=== PATIENT | female | born 1970 | race Caucasian/White ===

== ENCOUNTER 2020-07-30 15:16 | Emergency (ER) | payer OTHER, BC, SELFPAY ==
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
--- NOTE | ~2020-07-30 | XR_ITS ---
EXAMINATION: LEFT HAND CLINICAL INFORMATION: Pain at the snuffbox region COMPARISON: None TECHNIQUE: 4 views FINDINGS: There is no fracture. No dislocation. Bone and joints are normal. XR/XR hand wrist LT IMPRESSION: Normal left hand.
[2020-07-30 16:07] VITALS: BP 135/66; PULSE 62; RESP 16; TEMP 36.6; O2SAT 100; BMI 27.4
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
[2020-07-30] MEDS: Acetaminophen 325 MG TABLET 975 MG PO (17:05)
== END 2020-07-30 19:00 | disposition home or self-care (01) ==
PROVIDERS: Emergency Provider Emergency Medicine Emergency Medical Services; PCP Internal Medicine
DX: S39.012A Strain of muscle, fascia and tendon of lower back, initial encounter (principal); S16.1XXA Strain of muscle, fascia and tendon at neck level, initial encounter; M54.2 Cervicalgia; M25.532 Pain in left wrist; R10.11 Right upper quadrant pain; M54.6 Pain in thoracic spine; V43.52XA Car driver injured in collision with other type car in traffic accident, initial encounter; Y93.9 Activity, unspecified; Y92.410 Unspecified street and highway as the place of occurrence of the external cause; Y99.9 Unspecified external cause status; S63.502A Unspecified sprain of left wrist, initial encounter; R10.9 Unspecified abdominal pain; Z79.899 Other long term (current) drug therapy
CPT/HCPCS: 70450; 71250; 72125; 73110; 73130; 74176; 93005; 99284

== ENCOUNTER 2023-12-10 17:37 | Inpatient (IN) | payer BC, MEDICAID, SELFPAY ==
--- NOTE | ~2023-12-10 | MR_ITS ---
EXAMINATION: MR BRAIN WITHOUT CONTRAST CLINICAL INFORMATION: Ataxia COMPARISON: CT head December 10, 2023 TECHNIQUE: MRI of the brain was obtained using routine sequences without contrast. FINDINGS: No acute infarct. No acute intracranial hemorrhage or extra-axial fluid collection. The ventricles and sulci are normal in size and configuration without significant volume loss or hydrocephalus. Small chronic lacunar infarct in the right putamen. No mass lesion, mass effect, or herniation pattern. Normal intracranial arterial and dural venous sinus flow voids. Normal appearance of the midline structures. The orbits are grossly unremarkable. The paranasal sinuses and mastoids are well aerated. Normal marrow signal. MR/MR head/brain wo con IMPRESSION: No acute intracranial abnormality. Small chronic lacunar infarct in the right putamen. Electronically signed by: Cindi Hope MD 12/11/2023 07:20 PM EDT
--- NOTE | ~2023-12-10 | CT_ITS ---
EXAMINATION: CT HEAD WITHOUT CONTRAST CT CERVICAL SPINE WITHOUT CONTRAST CLINICAL INFORMATION: Fall. Head strike. COMPARISON: CT head and cervical spine from 07/30/2020. TECHNIQUE: Contiguous axial imaging was performed from the skull base to vertex without intravenous administration of contrast. Contiguous axial imaging was performed from the upper chest through the skull base without intravenous administration of contrast. Coronal and sagittal reformats were obtained at the acquisition workstation. This CT examination was performed using dose optimization techniques as appropriate, variously including the following: *Automated exposure control. *Adjustment of mA and/or kV according to patient size (this includes techniques or standardized protocols for targeted exams where dose is matched to indication/reason for exam; i.e. extremities or head). *Use of iterative reconstruction technique. DLP: 1130 mGy-cm FINDINGS: Head: There is no evidence of acute intracranial hemorrhage or edematous territorial infarction. Luna-white matter differentiation is preserved. There is no abnormal attenuation within the brain parenchyma. The ventricles are normal in morphology and size. No evidence for obstructive hydrocephalus. No abnormal mass effect or midline shift. No extra-axial fluid collections. Calcific atherosclerotic disease of the intracranial internal carotid arteries. No hyperdense vessel sign. No acute soft tissue or osseous abnormalities. Mild mucosal thickening of the paranasal sinuses. The mastoid air cells and middle ear cavities are clear. Cervical Spine: Instrumented anterior fusion of C5-C6. The atlantooccipital and atlantoaxial articulations remain well aligned. Straightening of the normal cervical lordosis. Otherwise, there is anatomic alignment of the vertebral bodies and posterior elements. No evidence of acute fracture or subluxation. The vertebral body heights are maintained. Moderate degenerative disc disease at C6-C7. Mild degenerative disc disease at C4-C5. Facet and uncovertebral joint arthropathy leads to osseous encroachment on the neural foramina from C3-C5. There is no prevertebral soft tissue swelling. The thyroid gland and remaining cervical soft tissues are within normal limits. The lung apices demonstrate no abnormalities. CT/CT cervical spine wo IV con IMPRESSION: 1. No evidence of acute intracranial hemorrhage or edematous territorial infarction. 2. No evidence of acute fracture or traumatic subluxation of the cervical spine. 3. Instrumented anterior fusion of C5-C6. 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 Electronically signed by: Colin Sung DO 12/10/2023 07:41 PM EDT RP
[2023-12-10 17:58] VITALS: BP 146/79; BP 162/90; PULSE 85; PULSE 88; RESP 18; TEMP 37.1; O2SAT 96; O2SAT 97; BMI 35.4
[2023-12-10 18:07] VITALS: BP 146/79; PULSE 88; RESP 18; TEMP 37.1; O2SAT 96
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
--- NOTE | 2023-12-10 18:36 | ED_ITS ---
HPI - Fall General Chief Complaint: Fall Stated Complaint: FELL DOWNSTAIRS,+HEAD STRIKE,UNABLE TO WALK Time Seen by Provider: 12/10/23 17:53 Source: patient and EMS Mode of arrival: EMS Limitations: no limitations History of Present Illness ED Provider: Bear Vega PA-C HPI Narrative: 53-year-old female with history of depression on fluoxetine and Wellbutrin at home who presents to the ER for evaluation of a fall at home today. Patient reports she fell down stairs that were carpeted, between 8-11 stairs. She states she hit her head on the wall, bent backwards and rolled down the stairs. She denies losing consciousness. She reports pain in her neck and her right lower back. She states she was able to get up after the fall and was able to drive herself to the hospital but unable to get out of the car so she called EMS from the parking lot. She reports that she has had ongoing difficulty with ambulation recurrent falls at home for the last couple of months. She reports she found out today with her psychiatrist that she has accidentally been taking 160 mg of fluoxetine instead of the intended 80 mg of fluoxetine. She states this has been going on for 6 weeks since her recent dose adjustment, and she was confused of how to take it. She reports in the last 6 weeks she has had increased falls, tremors, weakness in both of her legs. She states her legs ?give out without warning and she has had several falls, almost daily. She is on anticoagulation. She denies any numbness or tingling in her legs. She also reports bilateral hand tremor and has bilateral upper extremity weakness, 1 side not worse than the other. MD complaint: fall Onset (ago): hour(s) Fall from: standing Fall witnessed: no Place fall occurred: home Loss of consciousness: none Prolonged down time: no Symptoms prior to fall: none Context: history of frequent falls Location of injury: head, neck and back Severity: moderate Severity scale (1-10): 5 Quality: aching Associated symptoms (after fall): headache, neck pain, weakness and unable to walk Related Data Previous Rx's ?Medication ?Instructions ?Recorded acetaminophen 500 mg tablet 1,000 mg (2 x 500 mg) PO QID PRN 07/30/20 (Tylenol Extra Strength) fever or pain #14 tabs cyclobenzaprine 10 mg tablet 10 mg PO Q8H Muscle spasm #10 tabs 07/30/20 naproxen 500 mg tablet 500 mg PO BID PRN pain #10 tabs 07/30/20 oxycodone 5 mg tablet 5 mg PO BID PRN pain #10 tabs 07/30/20 Allergies Allergy/AdvReac Type Severity Reaction Status Date / Time Gadolinium-Containing Allergy Unknown ITCHING Verified 12/10/23 18:01 Contrast Medi [Gadolinium-Containing Contrast] Review of Systems 2 Review of Systems: Yes all other systems are reviewed and are negative [facility] Past Medical History Surgical History H/O elbow surgery H/O: hysterectomy History of appendectomy Hx of foot surgery S/P cervical spinal fusion S/P gastric surgery Social History Social History Smoked in Last 30 Days: No Use of substances other than those prescribed or required for medical reasons: No Advance Directives: No Advance Directives Information Provided: No Do you have a plan to hurt others: No Plan Physical Exam 2 Vital Signs: Vital Signs: Last Vital Signs Temp 97.8 F 12/10/23 20:53 Pulse 79 12/10/23 20:53 Resp 16 12/10/23 20:53 BP 126/76 12/10/23 20:53 Pulse Ox 98 12/10/23 20:53 O2 Del Method Room Air 12/10/23 20:53 BMI result Body Mass Index 35.4 Appearance: Alert, appears scared. Oriented X3. No acute distress. Head: normocephalic, atraumatic. Eyes: Pupils equal, round and reactive to light. ENT: Pharynx normal. No tonsillar swelling or exudate. Neck: Normal inspection. Neck supple. Left-sided soft tissue tenderness and palpable spasm CVS: Normal heart rate and rhythm. Pulses normal. Respiratory: No respiratory distress. Breath sounds normal. Abdomen: Soft and nontender. +BS x4 Skin: Skin warm and dry. Normal skin color. Normal skin turgor. No rashes. Extremities: No lower extremity edema. No joint swelling. Neuro/psych: Oriented X 3. Intention tremor of the bilateral lower extremities, resting tremor of the bilateral hands. Right lower extremity weakness compared to the left. bilateral UE weakness L>R, tremors throughout. +clonus of the LE. very unsteady giat Medical Decision Making Medical Decision Making [facility] Narrative: 53-year-old female with history of depression on fluoxetine and Wellbutrin at home presents to the ER for evaluation after she fell down a set of stairs today. She hit her head but did not lose consciousness. She reports neck pain and back pain. Placed in a collar on arrival. Unable to walk. She reports recurrent and worsening falls over the last several weeks. She has accidentally been taking 160 mg of her fluoxetine rather than 80 mg. She found this out today. She states this has been going on for 6 weeks. No fevers at home. No episodes of lethargy or confusion. She does report her legs ?giving out without warning. On examination she does not have any dilated pupils. She does have left upper extremity weakness, right lower extremity weakness, clonus, tremors throughout. Unable to walk. Very unsteady gait. No numbness or tingling, loss of sensation. She has tissue tenderness of the right lower lumbar area. No midline tenderness of her spine. CT scan of her head and neck were performed that were unremarkable. Lab workup was unremarkable. Vital signs are stable. Spoke with her who endorses significant decline in the last several weeks with recurrent falls, he reports 3 falls today. Patient not safe for discharge home. Case discussed with the hospitalist who has accepted the patient for admission. Patient updated on plan of care and all questions were answered. Differential Diagnosis Differential Diagnoses: The differential diagnosis associated with the presentation includes Serotonin syndrome, SSRI toxicity, stroke, multiple sclerosis, Guillain-Pe Ell syndrome, parkinson's disease Admission/Observation Consideration of admission/observation: Escalation of care including admission/observation considered Consult Healthcare Provider Management of the patient was discussed with: Hospitalist Dr. Quintanilla accepted admission Lab Data [facility] Lab Attestation statement: I reviewed the patient's lab results. 12/10/23 18:48 12/10/23 18:48 Labs: Lab Results 12/10/23 Range/Units 18:48 WBC 10.0 (4.8-10.8) X10*3/uL RBC 4.32 (4.20-5.50) X10*6/uL Hgb 12.8 (12.0-16.0) g/dl Hct 38.0 (37.0-47.0) % MCV 88.0 (80.0-98.0) fL MCH 29.6 (27.0-33.0) pg MCHC 33.7 (31.0-35.0) g/dl RDW 13.0 (11.0-16.0) % Plt Count 242 (160-400) X10*3/uL MPV 10.1 (9.4-12.3) fL Immature Gran % (Auto) 0.3 (0.0-0.4) % Neut % (Auto) 77.8 H (45-73) % Lymph % (Auto) 13.7 L (20-40) % [place] % (Auto) 6.5 (2-11) % Eos % (Auto) 1.6 (0-4) % Baso % (Auto) 0.1 (0-2) % Lymph # (Auto) 1.4 (1.2-4.9) X10*3/uL [place] # (Auto) 0.7 (0.1-1.2) X10*3/uL Eos # (Auto) 0.2 (0.0-0.4) X10*3/uL Baso # (Auto) 0.0 (0.0-0.2) X10*3/uL Abs Immat Gran (auto) 0.03 (0.00-0.03) X10*3/uL Absolute Neuts (auto) 7.7 (2.0-8.3) x10*3/uL Absolute Nucleated RBC 0.000 (0.0-0.012) X10*3/uL Nucleated RBC % (auto) 0.0 (0.0-0.2) /100WBC PT 10.1 L (10.9-12.4) SEC INR 0.9 (0.9-1.1) APTT 24.8 L (26.0-36.8) SEC Sodium 140 (135-145) mmol/L Potassium 4.2 (3.3-5.1) mmol/L Chloride 112 H (96-108) mmol/L Carbon Dioxide 21 L (22-29) mmol/L Anion Gap 11 L (12-20) BUN 16 (9-16) mg/dL Creatinine 0.91 (0.5-1.4) mg/dL Estim Creat Clear Calc 72.3 Estimated GFR > 60 Random Glucose 105 (60-115) mg/dL Calcium 9.1 (8.4-10.2) mg/dL Magnesium 2.1 (1.6-2.6) mg/dL Total Bilirubin 0.2 (0.0-1.0) mg/dL Direct Bilirubin < 0.1 (0.0-0.5) mg/dL AST 15 (5-31) U/L ALT 17 (0-31) U/L Alkaline Phosphatase 80 (39-117) U/L Total Creatine Kinase 54 (26-140) U/L Troponin I High Sens < 2.7 (<3.5-17.0) ng/L Total Protein 6.6 (6.5-8.0) g/dL Albumin 3.9 (3.5-5.0) g/dL TSH 1.94 (0.32-4.0) uIU/mL Salicylates < 5.0 L (15-30) mg/dL Acetaminophen < 3 (<30) mcg/mL Ethyl Alcohol < 10 mg/dL Independent Interpretation I performed an independent interpretation of an: EKG and CT Scan Interpretation: EKG with normal sinus rhythm, ventricular rate 78 beats per minute, normal [place] interval, normal QTC, no ST segment elevation or depression. No change from 08/02/2020 CT with out edema or acute bleed Radiology Impression Discussion of test interpretation with radiology: I have reviewed the radiologist's reading. Radiologist Impression: CT/CT head/brain wo IV con IMPRESSION: 1. No evidence of acute intracranial hemorrhage or edematous territorial infarction. 2. No evidence of acute fracture or traumatic subluxation of the cervical spine. 3. Instrumented anterior fusion of C5-C6. 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 Independent Historian Clinical information obtained from an independent historian. History obtained from or confirmed by: Spouse and EMS External Record Review External record reviewed: Outpatient record and Prior outpatient labs Prescription Management I considered prescription management with: Other (benzo) Chronic Conditions Patient?s care impacted by: Other (depression) Social Determinants Patient?s care significantly limited by Social Determinants of Health including: Other Social Determinant of Health Critical Care Time Critical Care Time Critical Care Time: No Discharge Plan Discharge Clinical Impression: Recurrent falls while walking, Clonus, Bilateral leg weakness, SSRI overdose Patient Disposition: Admitted As Inpatient Print Language: Yakut
[2023-12-10 18:55] LABS: Basophils Percent Auto 0.1 % (0-2); Eosinophils Absolute Auto 0.2 X10*3/uL (0.0-0.4); Eosinophils Percent Auto 1.6 % (0-4); Hemoglobin 12.8 g/dl (12.0-16.0); Imm Gran Abs Auto 0.03 X10*3/uL (0.00-0.03); Imm Gran Pct Auto 0.3 % (0.0-0.4); Lymphocytes Absolute Auto 1.4 X10*3/uL (1.2-4.9); Lymphocytes Percent Auto 13.7 % (20-40); MANUAL DIFF FLAG NO; Mean Corpuscular HGB Conc 33.7 g/dl (31.0-35.0); Mean Corpuscular Hemoglobin 29.6 pg (27.0-33.0); Mean Platelet Volume 10.1 fL (9.4-12.3); Monocytes Absolute Auto 0.7 X10*3/uL (0.1-1.2); Monocytes Percent Auto 6.5 % (2-11); Neutrophils Absolute Auto 7.7 x10*3/uL (2.0-8.3); Neutrophils Percent Auto 77.8 % (45-73); Platelet Count 242 X10*3/uL (160-400); Red Blood Count 4.32 X10*6/uL (4.20-5.50)
--- NOTE | 2023-12-10 19:00 | PC.NURSE ---
Report given to Rebecca Burks RN
[2023-12-10 19:01] LABS: INTERNATIONAL NORM RATIO 0.9 (0.9-1.1); Prothrombin Time 10.1 SEC (10.9-12.4)
[2023-12-10 19:03] LABS: Partial Thromboplastin Time 24.8 SEC (26.0-36.8)
[2023-12-10 19:11] LABS: Acetaminophen LAB < 3 mcg/mL (<30); Salicylate < 5.0 mg/dL (15-30)
[2023-12-10 19:16] LABS: Alanine Aminotransferase 17 U/L (0-31); Albumin Level 3.9 g/dL (3.5-5.0); Alkaline Phosphatase 80 U/L (39-117); Anion Gap 11 (12-20); Aspartate Amino Transferase 15 U/L (5-31); Bilirubin Direct < 0.1 mg/dL (0.0-0.5); Bilirubin Total 0.2 mg/dL (0.0-1.0); Blood Urea Nitrogen 16 mg/dL (9-16); Calcium 9.1 mg/dL (8.4-10.2); Carbon Dioxide 21 mmol/L (22-29); Chloride 112 mmol/L (96-108); Creatinine Clr Calc Pharmacy 72.3; Estimated Glomerular Filt Rate > 60; Ethanol < 10 mg/dL; Glucose Random 105 mg/dL (60-115); Magnesium 2.1 mg/dL (1.6-2.6); Potassium 4.2 mmol/L (3.3-5.1); Sodium 140 mmol/L (135-145); Total Protein 6.6 g/dL (6.5-8.0)
[2023-12-10 19:19] LABS: Troponin-I High Sensitivity < 2.7 ng/L (<3.5-17.0)
[2023-12-10 19:33] LABS: TSH reflex Free T4 1.94 uIU/mL (0.32-4.0)
[2023-12-10 20:53] VITALS: BP 126/76; PULSE 79; RESP 16; TEMP 36.6; O2SAT 98
--- NOTE | 2023-12-10 21:02 | PM.IMHP ---
History of Present Illness Date of Service: 12/10/23 Attending physician on admission: Anna Quintanilla Chief Complaint: Fall at home with head strike, unable to walk Pt is a 53-year-old female with a PMH significant for?fibromyalgia, cluster migraines, OCD, and anxiety who presents to the ED with?multiple complaints including accidental medication overdose as well as multiple falls at home. Patient reports found out today after review with her psychiatrist that she had been taking double her prescribed fluoxetine due to a pharmacy error: Has been taking 160 mg daily for the past 1.5 months instead of 80 mg daily. Reports daily nausea and vomiting during this time period. Patient also reports she had 2 falls at home. The 1st incident occurred when she was returning home in the morning and she walked through her door, ?blacked out? 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 Patient was asymptomatic --no lightheadedness or dizziness -- and has no recollection if she tripped or for how long she was unconscious. Later in the afternoon patient was at the top of the stairs when her ?legs gave out? and she fell down the stairs hitting her head and back on the wall, before bending backwards and continuing to roll down the stairs. Denies losing consciousness during this episode. No lightheadedness or dizziness. Patient reports she has been experiencing difficulty walking, intermittent lower leg weakness, and ataxia that has been ongoing for the past year, significantly worsening the past few months. During this past year patient has multiple other medical complaints, including intermittent upper, lower, and whole-body resting tremors; loss of fine motor function or upper extremities; loss of sensation of legs especially at night where they feel like they are ?flying? or ?floating?; worsening migraines; blurry vision of past two months where she can no longer read close up; and difficulty word finding. Has not been to see any provider for these symptoms, though notes she has an appointment to see her PCP next month. No fever, chills, nausea, vomiting, abdominal pain. Denies shortness or breath or difficulty breathing. No chest pain/pressure, palpitations. In the ED pt was mildly hypertensive at 146/79, vitals otherwise WNL and stable. Labs were grossly unremarkable. No leukocytosis. Stable H&H. No significant electrolyte abnormalities. Renal and hepatic function WNL. Troponin negative. TSH WNL. CT?of head found no acute intracranial hemorrhage or edematous territorial infarction. CT of cervical spine negative for evidence of acute fracture or traumatic subluxation, though did show instrumented anterior fusion of C5-C6, and mild multilevel degenerative spondylo arthropathy. EKG demonstrated normal sinus rhythm without evidence of significant ST elevations or depressions. Pt will be admitted to the hospital under observation for treatment and further evaluation of generalized weakness, ataxia, and frequent falls at home. Review of Systems Review of Systems: Negative except for that stated in the [facility] Medical History (Updated 12/10/23 @ 22:30 by PAULETTE Webster) Cluster headaches Generalized anxiety disorder OCD (obsessive compulsive disorder) Fibromyalgia Surgical History Hx of foot surgery H/O elbow surgery S/P gastric surgery H/O: hysterectomy History of appendectomy S/P cervical spinal fusion Social History Smoked in Last 30 Days: No Use of substances other than those prescribed or required for medical reasons: No Advance Directives: No Advance Directives Information Provided: No Do you have a plan to hurt others: No Plan Meds Allergies Allergy/AdvReac Type Severity Reaction Status Date / Time Gadolinium-Containing Allergy Unknown ITCHING Verified 12/10/23 18:01 Contrast Medi [Gadolinium-Containing Contrast] Home Medications ?Medication ?Instructions ?Recorded ?Confirmed ?Last Taken ?Type acetaminophen 500 mg tablet 1,000 mg PO BID PRN fever or pain 12/10/23 12/10/23 12/09/23 History (Tylenol Extra Strength) amitriptyline 10 mg tablet 10 mg PO BEDTIME 12/10/23 12/10/23 12/09/23 History bupropion HCl 150 mg 24 hr tablet, 150 mg PO DAILY 12/10/23 12/10/23 12/10/23 History extended release cetirizine 10 mg tablet 10 mg PO BEDTIME 12/10/23 12/10/23 12/09/23 History cholecalciferol (vitamin D3) 50 50 mcg PO DAILY 12/10/23 12/10/23 12/10/23 History mcg (2,000 unit) capsule cyanocobalamin (vitamin B-12) 1,000 mcg PO DAILY 12/10/23 12/10/23 12/10/23 History 1,000 mcg tablet docusate sodium 100 mg capsule 100 mg PO BID 12/10/23 12/10/23 12/10/23 History duloxetine 60 mg capsule,delayed 60 mg PO BEDTIME 12/10/23 12/10/23 12/09/23 History release fluoxetine 40 mg capsule 80 mg PO DAILY 12/10/23 12/10/23 12/10/23 History hydroxyzine HCl 25 mg tablet 25 mg PO Q8H PRN anxiety 12/10/23 12/10/23 12/09/23 History ibuprofen 800 mg tablet 800 mg PO TID PRN Pain 12/10/23 12/10/23 12/09/23 History pregabalin 300 mg capsule 300 mg PO BID 12/10/23 12/10/23 12/10/23 History sennosides 8.6 mg-docusate sodium 1 tab PO BID 12/10/23 12/10/23 12/10/23 History 50 mg tablet (Stimulant Laxative Plus) zolpidem 10 mg tablet 10 mg PO BEDTIME 12/10/23 12/10/23 12/09/23 History Physical Exam Vital Signs and Narrative: Vital Signs: Last Vital Signs Temp 97.8 F 12/10/23 20:53 Pulse 79 12/10/23 20:53 Resp 16 12/10/23 20:53 BP 126/76 12/10/23 20:53 Pulse Ox 98 12/10/23 20:53 O2 Del Method Room Air 12/10/23 20:53 BMI result Body Mass Index 35.4 Constitutional: Alert, in no acute distress. Mental Status: Oriented to person, place and time. Eyes: Pupils are equal, round, and reactive to light. Ear, Nose, and Throat: Oropharynx clear, mucous membranes moist. Ears and nose without deformities. Trachea midline. Respiratory: Clear to auscultation bilaterally. No wheezing, rales, or rhonchi. Cardiovascular: S1, S2 regular. No murmurs, rubs, or gallops. Gastrointestinal: Abdomen soft, non-tender, non-distended. Normal bowel sounds. Neurologic: Upper extremity resting tremors noted. Tremulous voice. Tongue fasciculations. EOM with difficulty tracking. Right lower extremity clonus. Loss of sensation to light touch of left face and left upper and lower extremities. Globalized, symmetric reduced strength of upper and lower extremities bilaterally. Skin: Warm, dry. Extremities: No edema. Psychiatric: Normal mood and affect. Results Labs 12/10/23 18:48 12/10/23 18:48 Labs: Laboratory Results - last 24 hr 12/10/23 18:48 MCV 88.0 MCH 29.6 MCHC 33.7 RDW 13.0 Plt Count 242 MPV 10.1 Immature Gran % (Auto) 0.3 Neut % (Auto) 77.8 H Lymph % (Auto) 13.7 L [place] % (Auto) 6.5 Eos % (Auto) 1.6 Baso % (Auto) 0.1 Lymph # (Auto) 1.4 [place] # (Auto) 0.7 Eos # (Auto) 0.2 Baso # (Auto) 0.0 Abs Immat Gran (auto) 0.03 Absolute Neuts (auto) 7.7 Absolute Nucleated RBC 0.000 Nucleated RBC % (auto) 0.0 PT 10.1 L INR 0.9 APTT 24.8 L Anion Gap 11 L Estim Creat Clear Calc 72.3 Estimated GFR > 60 Random Glucose 105 Calcium 9.1 Magnesium 2.1 Total Bilirubin 0.2 Direct Bilirubin < 0.1 AST 15 ALT 17 Alkaline Phosphatase 80 Total Creatine Kinase 54 Troponin I High Sens < 2.7 Total Protein 6.6 Albumin 3.9 TSH 1.94 Salicylates < 5.0 L Acetaminophen < 3 Ethyl Alcohol < 10 Imaging Radiologist's Impressions: Impressions Cervical Spine CT 12/10/23 18:30 IMPRESSION: 1. No evidence of acute intracranial hemorrhage or edematous territorial infarction. 2. No evidence of acute fracture or traumatic subluxation of the cervical spine. 3. Instrumented anterior fusion of C5-C6. 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 Electronically signed by: Colin Sung DO 12/10/2023 07:[address] 12/10/23 18:30 IMPRESSION: 1. No evidence of acute intracranial hemorrhage or edematous territorial infarction. 2. No evidence of acute fracture or traumatic subluxation of the cervical spine. 3. Instrumented anterior fusion of C5-C6. 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 Electronically signed by: Colin Sung DO 12/10/2023 07:41 PM EDT RP Assessment and Plan (1) SSRI overdose: Qualifiers: Encounter type: initial encounter Injury intent: accidental or unintentional Qualified Code(s): T43.221A - Poisoning by selective serotonin reuptake inhibitors, accidental (unintentional), initial encounter Status: Acute (2) Recurrent falls while walking: Status: Acute Plan Pt is a 53-year-old female with a PMH significant for?fibromyalgia, cluster migraines, OCD, and anxiety who presents to the ED with?multiple complaints including accidental medication overdose as well as multiple falls at home. Pt will be admitted to the hospital under observation for treatment and further evaluation of generalized weakness, ataxia, and frequent falls at home. Frequent falls at home Patient with ataxia, tremors, frequent falls at home, and myriad other symptoms Has been ongoing x1 year, worsening lately Reports currently falling almost daily CT of head and cervical spine negative for acute abnormality, fracture, or subluxation; labs unremarkable Unclear etiology: Most concerning for Parkinson's versus multiple sclerosis Neurology consult PT/OT evaluation Will hold off on additional imaging pending Neurology input SSRI overdose Unintentional, pt has been taking 160mg daily instead of 80mg daily Does not appear to have acute serotonin syndrome Hold amitriptyline, bupropion, duloxetine, fluoxetine, and pregabalin for now Chronic constipation Continue home bowel regimen Fibromyalgia Hold amitriptyline, pregabalin Anxiety Continue hydroxyzine Hold other antidepressants Full Code Attending:?Dr. Quintanilla DVT Prophylaxis: Lovenox Patient will be admitted to the hospital under observation for treatment and further evaluation of worsening ataxia, generalized weakness, essential tremors, and frequent falls at home requiring specialist consultation with Neurology and for PT evaluation for safe disposition home. Quality Stroke Does the patient have a stroke diagnosis?: No VTE Prior VTE?: No VTE Risk Level:: Medical - moderate - high VTE Device Contraindication: Treatment Not Indicated VTE Drug Contraindication: N/A - Med Ordered
[2023-12-10 21:03] LABS: Appearance Urine Clear; Color Urine Yellow; Glucose Urine UA Negative (Negative); Leukocyte Esterase Urine Negative (Negative); Nitrite Urine Negative (Negative); Specific Gravity - Urine 1.015 (1.005-1.025); Urine Blood Negative (Negative); Urine Ketones Negative (Negative); Urine Protein Negative (Neg-Trace)
--- NOTE | 2023-12-10 21:09 | MHC.CM.ED ---
Pt will be admitted. Awaiting hospitalist.
[2023-12-10 21:15] LABS: Amphetamine Screen Urine Not Detected (Not Detect); Barbiturates, Urine Not Detected (Not Detect); Benzodiazepines Screen Urine Not Detected (Not Detect); Buprenorphine Scr Not Detected (Not Detect); Cannabinoid Screen Urine Not Detected (Not Detect); Cocaine Screen Urine Not Detected (Not Detect); Fentanyl, urine Not Detected (Not Detect); Methadone Screen, Urine Not Detected (Not Detect); Opiate Screen Urine Not Detected (Not Detect); Oxycodone Screen Urine Not Detected (Not Detect); Phencyclidine Screen Urine Not Detected (Not Detect)
--- NOTE | 2023-12-10 21:59 | MHC.EDTECH ---
At about 1999 I walked the patient to the bathroom and upon leaving the bathroom she told me her legs were feeling weak and felt like they were going to give out on her. Upon hearing this I proceeded to lower her to the ground on her bottom preventing any injuries. Placed patient in wheelchair and brought her back to room and helped her get into the bed.
--- NOTE | 2023-12-10 22:22 | PHA.MEDREC ---
Pharmacy Consult ? Medication Reconciliation Pharmacy has completed the medication reconciliation. Spoke to patient and confirmed medication list. Patient said she takes cetirizine and duloxetine at night.
[2023-12-10 23:05] VITALS: BP 151/70; PULSE 67; RESP 18; TEMP 36.8; O2SAT 95
[2023-12-11] VITALS (7 sets, daily range): BP systolic 134–169; BP diastolic 64–81; PULSE 64–80; RESP 16–20; TEMP 36.1–37.1; O2SAT 95–100
[2023-12-11] MEDS: Zolpidem Tartrate 5 MG TABLET 10 MG PO ×2 (00:23→23:42)
[2023-12-11] MEDS: Docusate Sodium 100 MG CAPSULE PO ×3 (00:23→21:59)
[2023-12-11] MEDS: Sennosides/Docusate Sodium TABLET 1 TAB PO ×3 (00:23→21:59)
[2023-12-11] MEDS: Loratadine 10 MG TABLET PO ×2 (00:23→21:59)
[2023-12-11] MEDS: Enoxaparin Sodium 40 MG/0.4 ML SYRINGE SUBCUT ×2 (00:28→22:00)
[2023-12-11] MEDS: hydrOXYzine HCL 25 MG TABLET PO (00:28)
[2023-12-11] MEDS: Melatonin 3 MG TABLET 6 MG PO (00:29)
[2023-12-11] MEDS: Cyanocobalamin (Vitamin B-12) 1,000 MCG TABLET 1000 MCG PO (09:11)
[2023-12-11] MEDS: Cholecalciferol (Vitamin D3) 25 MCG TABLET 50 MCG PO (09:11)
--- NOTE | 2023-12-11 10:55 | P.PNIM_ITS ---
Subjective Subjective Date of Service: 12/11/23 Interval History: anxious, tremulous Physical Exam 2 Vital Signs: Vital Signs: Last Vital Signs Temp 98 F 12/11/23 10:19 Pulse 66 12/11/23 10:19 Resp 18 12/11/23 10:19 BP 162/81 H 12/11/23 10:19 Pulse Ox 95 12/11/23 10:19 O2 Del Method Room Air 12/11/23 10:19 BMI result Body Mass Index 35.4 alert, tremulous, slow speech, high tonicity, no specific focal weakness Objective Data Active Medications Acetaminophen (Acetaminophen 325 Mg Tablet) 650 mg PO Q6H PRN PRN Reason: Pain, Mild (Pain Scale 1-3), fever or headache Benzonatate (Benzonatate 100 Mg Capsule) 100 mg PO TID PRN PRN Reason: Cough Calcium Carbonate (Calcium Carbonate 750 Mg Tab.Chew) 750 mg PO Q4H PRN PRN Reason: Heartburn Cyanocobalamin (Cyanocobalamin (Vitamin B-12) 1,000 Mcg Tablet) 1,000 mcg PO DAILY [facility] Last Admin: 12/11/23 09:11 Dose: 1,000 mcg Documented By: JEFF Docusate Sodium (Docusate Sodium 100 Mg Capsule) 100 mg PO BID [facility] Last Admin: 12/11/23 09:11 Dose: 100 mg Documented By: JEFF Enoxaparin Sodium (Enoxaparin Sodium 40 Mg/0.4 Ml Syringe) 40 mg SUBCUT Q24H [facility] Last Admin: 12/11/23 00:28 Dose: 40 mg Documented By: CEASAR Hydroxyzine HCl (Hydroxyzine Hcl 25 Mg Tablet) 25 mg PO Q8H PRN PRN Reason: anxiety Last Admin: 12/11/23 00:28 Dose: 25 mg Documented By: CEASAR Ibuprofen (Ibuprofen 800 Mg Tablet) 800 mg PO TID PRN PRN Reason: Pain, Mild (Pain Scale 1-3) Loratadine (Loratadine 10 Mg Tablet) 10 mg PO BEDTIME [facility] Last Admin: 12/11/23 00:23 Dose: 10 mg Documented By: CEASAR Magnesium Hydroxide (Milk Of Magnesia 30 Ml Oral.Susp) 30 ml PO DAILY PRN PRN Reason: Constipation Melatonin (Melatonin 3 Mg Tablet) 6 mg PO BEDTIME PRN PRN Reason: Insomnia Last Admin: 12/11/23 00:29 Dose: 6 mg Documented By: CEASAR Ondansetron HCl (Ondansetron Hcl 4 Mg/2 Ml Vial) 4 mg IVPUSH Q8H PRN PRN Reason: Nausea and Vomiting Senna/Docusate Sodium (Sennosides/Docusate Sodium Tablet) 1 tab PO BID [facility] Last Admin: 12/11/23 09:11 Dose: 1 tab Documented By: JEFF Sodium Chloride (0.9 % Sodium Chloride Flush 3 Ml Syringe) 3 ml IVFLUSH QSHIFT [facility] Last Admin: 12/11/23 09:12 Dose: Not Given Documented By: JEFF Non-Admin Reason: See Note Vitamin D (Cholecalciferol (Vitamin D3) 25 Mcg Tablet) 50 mcg PO DAILY [facility] Last Admin: 12/11/23 09:11 Dose: 50 mcg Documented By: JEFF Zolpidem Tartrate (Zolpidem Tartrate 5 Mg Tablet) 10 mg PO BEDTIME [facility] Last Admin: 12/11/23 00:23 Dose: 10 mg Documented By: CEASAR Labs 12/10/23 18:48 12/10/23 18:48 Labs: Laboratory Results - last 24 hr 12/10/23 12/10/23 18:48 20:56 MCV 88.0 MCH 29.6 MCHC 33.7 RDW 13.0 Plt Count 242 MPV 10.1 Immature Gran % (Auto) 0.3 Neut % (Auto) 77.8 H Lymph % (Auto) 13.7 L [place] % (Auto) 6.5 Eos % (Auto) 1.6 Baso % (Auto) 0.1 Lymph # (Auto) 1.4 [place] # (Auto) 0.7 Eos # (Auto) 0.2 Baso # (Auto) 0.0 Abs Immat Gran (auto) 0.03 Absolute Neuts (auto) 7.7 Absolute Nucleated RBC 0.000 Nucleated RBC % (auto) 0.0 PT 10.1 L INR 0.9 APTT 24.8 L Anion Gap 11 L Estim Creat Clear Calc 72.3 Estimated GFR > 60 Random Glucose 105 Calcium 9.1 Magnesium 2.1 Total Bilirubin 0.2 Direct Bilirubin < 0.1 AST 15 ALT 17 Alkaline Phosphatase 80 Total Creatine Kinase 54 Troponin I High Sens < 2.7 Total Protein 6.6 Albumin 3.9 TSH 1.94 Urine Color Yellow Urine Appearance Clear Urine pH 6.0 Ur Specific [place] 1.015 Urine Protein Negative Urine Glucose (UA) Negative Urine Ketones Negative Urine Blood Negative Urine Nitrite Negative Ur Leukocyte Esterase Negative Salicylates < 5.0 L Urine Opiates Screen Not Detected Ur Buprenorphine Scrn Not Detected Ur Oxycodone Screen Not Detected Urine Methadone Screen Not Detected Urine Fentanyl Screen Not Detected Acetaminophen < 3 Ur Barbiturates Screen Not Detected Ur Phencyclidine Scrn Not Detected Ur Amphetamines Screen Not Detected U Benzodiazepines Scrn Not Detected Urine Cocaine Screen Not Detected U Marijuana (THC) Screen Not Detected Ethyl Alcohol < 10 Assessment and Plan (1) SSRI overdose: Status: Acute Plan 53F PMH fibromyalgia, cluster migraines, OCD, anxiety presented with multiple falls Multiple falls, ataxia, tremors Question polypharmacy versus underlying neurological condition MRI brain Neuro eval Psych eval Hold psychiatric meds for now DVT prophylaxis with Lovenox Full Code reason for continued hospitalization: Working on neurological disorder Quality Stroke Does the patient have a stroke diagnosis?: No VTE Prior VTE?: No VTE Risk Level:: Medical - moderate - high VTE Device Contraindication: Treatment Not Indicated VTE Drug Contraindication: N/A - Med Ordered
--- NOTE | 2023-12-11 13:58 | PM.PSYCN ---
History of Present Illness Date of Service: 12/11/23 Chief Complaint: ataxia, frequent falls at home Reason for Consult: serotonin Discussed with referring provider: Yes Sources of Information: patient interviewed, chart reviewed and crisis/core team assessment reviewed HPI Narrative: Ms. Moreno is a 53 year-old who came from [facility] after having appointment with psychiatric provider and realizing that for the past month she has been taking the wrong dose of prozac, instead of 80mg daily, she has been taking 160mg po daily, she also takes amitripyline at bedtime. current medication reconciliation also shows cymbalta but she states she is not on this medication anymore. She reports ataxic gait, sweating, jerk-like movement intermittent on upper and lower extremities, confusion at times, falls. No VH/AH. On exam, inducible upper myoclonus noted. [facility], [facility] Medical History (Updated 12/12/23 @ 08:53 by Adalgisa Fitzpatrick NP) Cluster headaches Generalized anxiety disorder OCD (obsessive compulsive disorder) Fibromyalgia Surgical History Hx of foot surgery H/O elbow surgery S/P gastric surgery H/O: hysterectomy History of appendectomy S/P cervical spinal fusion Diagnostics Vital Signs (24Hr): Vital Signs - 24 hr 12/10/23 17:58 12/10/23 18:07 12/10/23 20:53 Temperature 98.7 F 98.7 F 97.8 F Pulse Rate 88 88 79 Respiratory Rate 18 18 16 Blood Pressure 146/79 H 146/79 H 126/76 Pulse Oximetry 96 96 98 Oxygen Delivery Method Room Air Room Air Room Air 12/10/23 23:05 12/11/23 06:56 12/11/23 08:17 Temperature 98.2 F 98.7 F Pulse Rate 67 70 70 Respiratory Rate 18 18 Blood Pressure 151/70 H 136/77 136/77 Pulse Oximetry 95 98 98 Oxygen Delivery Method Room Air Room Air 12/11/23 10:19 12/11/23 13:30 Temperature 98 F 96.9 F Pulse Rate 66 67 Respiratory Rate 18 16 Blood Pressure 162/81 H 169/76 H Pulse Oximetry 95 100 Oxygen Delivery Method Room Air Room Air BMI result Body Mass Index 35.4 Labs 12/12/23 06:02 12/12/23 06:02 Labs: Laboratory Results - last 48 hr 12/10/23 12/10/23 18:48 20:56 WBC 10.0 RBC 4.32 Hgb 12.8 Hct 38.0 MCV 88.0 MCH 29.6 MCHC 33.7 RDW 13.0 Plt Count 242 MPV 10.1 Immature Gran % (Auto) 0.3 Neut % (Auto) 77.8 H Lymph % (Auto) 13.7 L [place] % (Auto) 6.5 Eos % (Auto) 1.6 Baso % (Auto) 0.1 Lymph # (Auto) 1.4 [place] # (Auto) 0.7 Eos # (Auto) 0.2 Baso # (Auto) 0.0 Abs Immat Gran (auto) 0.03 Absolute Neuts (auto) 7.7 Absolute Nucleated RBC 0.000 Nucleated RBC % (auto) 0.0 PT 10.1 L INR 0.9 APTT 24.8 L Sodium 140 Potassium 4.2 Chloride 112 H Carbon Dioxide 21 L Anion Gap 11 L BUN 16 Creatinine 0.91 Estim Creat Clear Calc 72.3 Estimated GFR > 60 Random Glucose 105 Calcium 9.1 Magnesium 2.1 Total Bilirubin 0.2 Direct Bilirubin < 0.1 AST 15 ALT 17 Alkaline Phosphatase 80 Total Creatine Kinase 54 Troponin I High Sens < 2.7 Total Protein 6.6 Albumin 3.9 TSH 1.94 Urine Color Yellow Urine Appearance Clear Urine pH 6.0 Ur Specific [place] 1.015 Urine Protein Negative Urine Glucose (UA) Negative Urine Ketones Negative Urine Blood Negative Urine Nitrite Negative Ur Leukocyte Esterase Negative Salicylates < 5.0 L Urine Opiates Screen Not Detected Ur Buprenorphine Scrn Not Detected Ur Oxycodone Screen Not Detected Urine Methadone Screen Not Detected Urine Fentanyl Screen Not Detected Acetaminophen < 3 Ur Barbiturates Screen Not Detected Ur Phencyclidine Scrn Not Detected Ur Amphetamines Screen Not Detected U Benzodiazepines Scrn Not Detected Urine Cocaine Screen Not Detected U Marijuana (THC) Screen Not Detected Ethyl Alcohol < 10 Imaging Radiology Impressions: ITS Impressions Cervical Spine CT 12/10/23 18:30 IMPRESSION: 1. No evidence of acute intracranial hemorrhage or edematous territorial infarction. 2. No evidence of acute fracture or traumatic subluxation of the cervical spine. 3. Instrumented anterior fusion of C5-C6. 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 Electronically signed by: Colin Sung DO 12/10/2023 07:41 PM EDT RP Head CT 12/10/23 18:30 IMPRESSION: 1. No evidence of acute intracranial hemorrhage or edematous territorial infarction. 2. No evidence of acute fracture or traumatic subluxation of the cervical spine. 3. Instrumented anterior fusion of C5-C6. 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 Electronically signed by: Colin Sung DO 12/10/2023 07:41 PM EDT RP Mental Status Exam Mental Status Exam Narrative: Appearance: wearing hospital gown, fair hygiene, in NAD Behavior: cooperative Psychomotor: inducible myoclonus on upper extremities, some spontaneous jerk like movement noted as well when pt talking. Speech: clear, normal rate/rhythm/volume, spontaneous TP: linear TC: concern about symptoms Mood: anxious Affect: congruent SI; none HI: none VH/AH; none Delusions: none Insight/judgment: intact x 2. Memory/cog; alert, oriented x 3. grossly intact to conversation. Medications Medications Current Medications Acetaminophen (Acetaminophen 325 Mg Tablet) 650 mg PO Q6H PRN PRN Reason: Pain, Mild (Pain Scale 1-3), fever or headache Benzonatate (Benzonatate 100 Mg Capsule) 100 mg PO TID PRN PRN Reason: Cough Calcium Carbonate (Calcium Carbonate 750 Mg Tab.Chew) 750 mg PO Q4H PRN PRN Reason: Heartburn Cyanocobalamin (Cyanocobalamin (Vitamin B-12) 1,000 Mcg Tablet) 1,000 mcg PO DAILY [facility] Last Admin: 12/11/23 09:11 Dose: 1,000 mcg Docusate Sodium (Docusate Sodium 100 Mg Capsule) 100 mg PO BID [facility] Last Admin: 12/11/23 09:11 Dose: 100 mg Enoxaparin Sodium (Enoxaparin Sodium 40 Mg/0.4 Ml Syringe) 40 mg SUBCUT Q24H [facility] Last Admin: 12/11/23 00:28 Dose: 40 mg Hydroxyzine HCl (Hydroxyzine Hcl 25 Mg Tablet) 25 mg PO Q8H PRN PRN Reason: anxiety Last Admin: 12/11/23 00:28 Dose: 25 mg Ibuprofen (Ibuprofen 800 Mg Tablet) 800 mg PO TID PRN PRN Reason: Pain, Mild (Pain Scale 1-3) Loratadine (Loratadine 10 Mg Tablet) 10 mg PO BEDTIME [facility] Last Admin: 12/11/23 00:23 Dose: 10 mg Magnesium Hydroxide (Milk Of Magnesia 30 Ml Oral.Susp) 30 ml PO DAILY PRN PRN Reason: Constipation Melatonin (Melatonin 3 Mg Tablet) 6 mg PO BEDTIME PRN PRN Reason: Insomnia Last Admin: 12/11/23 00:29 Dose: 6 mg Ondansetron HCl (Ondansetron Hcl 4 Mg/2 Ml Vial) 4 mg IVPUSH Q8H PRN PRN Reason: Nausea and Vomiting Senna/Docusate Sodium (Sennosides/Docusate Sodium Tablet) 1 tab PO BID [facility] Last Admin: 12/11/23 09:11 Dose: 1 tab Sodium Chloride (0.9 % Sodium Chloride Flush 3 Ml Syringe) 3 ml IVFLUSH QSHIFT [facility] Last Admin: 12/11/23 09:12 Dose: Not Given Vitamin D (Cholecalciferol (Vitamin D3) 25 Mcg Tablet) 50 mcg PO DAILY [facility] Last Admin: 12/11/23 09:11 Dose: 50 mcg Zolpidem Tartrate (Zolpidem Tartrate 5 Mg Tablet) 10 mg PO BEDTIME [facility] Last Admin: 12/11/23 00:23 Dose: 10 mg Allergies Allergies Allergy/AdvReac Type Severity Reaction Status Date / Time Gadolinium-Containing Allergy Unknown ITCHING Verified 12/10/23 18:01 Contrast Medi [Gadolinium-Containing Contrast] Assessment & Plan Assessment & Plan (1) Serotonin syndrome: Status: Acute Code(s): G25.79 - Other drug induced movement disorders Plan Pt presents with combination of intermittent myoclonus, sweating, subjective anxious mood/restlessness. No leukocitosys nor elevated CK. I would recommend to hold serotonergic agents, including prozac, amitriptyline. start periactin as serotonin felix, assess resolution of symptoms. keep in mind prozac has long half life, may take some days to see complete resolution. Total time managing care of this patient today ____ minutes.
[2023-12-11] MEDS: LORazepam 2 MG/ML VIAL 0.5 MG IVPUSH ×3 (15:08→22:00)
[2023-12-11] MEDS: Cyproheptadine HCl 4 MG TABLET PO ×3 (16:30→21:59)
[2023-12-11] MEDS: 0.9 % Sodium Chloride Flush 3 ML SYRINGE IVFLUSH ×2 (16:30→22:01)
--- NOTE | 2023-12-11 21:51 | PC.NURSE ---
Addendum entered by Juana Bernal RN 12/11/23 22:08: Patient wants her 21:00 scheduled Ambien later after 23:00. Ok to do so per pharmacy. Original Note: re: Ativan 0.5 mg Q 8hr scheduled. My 22:30 slot for tonight documented by previous shift. Pharmacy contacted and aware. Will give this dose as unscheduled.
[2023-12-12 03:11] VITALS: BP 155/78; PULSE 67; RESP 16; TEMP 36.2; O2SAT 97
[2023-12-12 07:01] LABS: Anion Gap 10 (12-20); Blood Urea Nitrogen 16 mg/dL (9-16); C Reactive Protein 0.48 mg/dL (< or = 0.50); Calcium 8.8 mg/dL (8.4-10.2); Carbon Dioxide 27 mmol/L (22-29); Chloride 108 mmol/L (96-108); Creatinine Clr Calc Pharmacy 86.7; Estimated Glomerular Filt Rate > 60; Glucose Fasting 93 mg/dL (60-99); Iron 50 mcg/dL (30-160); Percent Iron Saturation 18 % (15-50); Potassium 3.8 mmol/L (3.3-5.1); Sodium 141 mmol/L (135-145); Total Iron Binding Capacity 285 mcg/dL (228-428); Unsaturated Iron Binding 235 ug/dL
[2023-12-12 07:04] LABS: Hematocrit 38.8 % (37.0-47.0); Hemoglobin 12.5 g/dl (12.0-16.0); Mean Corpuscular HGB Conc 32.2 g/dl (31.0-35.0); Mean Corpuscular Hemoglobin 28.5 pg (27.0-33.0); Mean Corpuscular Volume 88.4 fL (80.0-98.0); Mean Platelet Volume 10.4 fL (9.4-12.3); Platelet Count 188 X10*3/uL (160-400); Red Blood Count 4.39 X10*6/uL (4.20-5.50); Red Cell Distribution Width 12.8 % (11.0-16.0); White Blood Count 5.6 X10*3/uL (4.8-10.8)
[2023-12-12 07:14] LABS: Ferritin 36 ng/mL (10-250)
[2023-12-12 07:34] LABS: Vitamin B12 > 2000 pg/mL (200-900)
[2023-12-12 08:00] VITALS: BP 152/70; PULSE 66; RESP 17; TEMP 36.3; O2SAT 97
[2023-12-12] MEDS: Sennosides/Docusate Sodium TABLET 1 TAB PO ×2 (08:16→21:18)
[2023-12-12] MEDS: 0.9 % Sodium Chloride Flush 3 ML SYRINGE IVFLUSH ×3 (08:16→21:19)
[2023-12-12] MEDS: Cyproheptadine HCl 4 MG TABLET PO ×3 (08:16→21:18)
[2023-12-12] MEDS: Docusate Sodium 100 MG CAPSULE PO ×2 (08:16→21:17)
[2023-12-12] MEDS: Cholecalciferol (Vitamin D3) 25 MCG TABLET 50 MCG PO (08:17)
[2023-12-12] MEDS: Cyanocobalamin (Vitamin B-12) 1,000 MCG TABLET 1000 MCG PO (08:17)
--- NOTE | 2023-12-12 09:14 | HO.PM.IMPN ---
Subjective Subjective Date of Service: 12/12/23 Interval History: no change in symptoms Physical Exam Vital Signs: Vital Signs: Last Vital Signs Temp 97.4 F 12/12/23 08:00 Pulse 66 12/12/23 08:00 Resp 17 12/12/23 08:00 BP 152/70 H 12/12/23 08:00 Pulse Ox 97 12/12/23 08:00 O2 Del Method Room Air 12/12/23 08:00 BMI result Body Mass Index 35.4 alert, tremulous, slow speech, high tonicity, no specific focal weakness Objective Data Active Medications Acetaminophen (Acetaminophen 325 Mg Tablet) 650 mg PO Q6H PRN PRN Reason: Pain, Mild (Pain Scale 1-3), fever or headache Benzonatate (Benzonatate 100 Mg Capsule) 100 mg PO TID PRN PRN Reason: Cough Calcium Carbonate (Calcium Carbonate 750 Mg Tab.Chew) 750 mg PO Q4H PRN PRN Reason: Heartburn Cyanocobalamin (Cyanocobalamin (Vitamin B-12) 1,000 Mcg Tablet) 1,000 mcg PO DAILY [facility] Last Admin: 12/12/23 08:17 Dose: 1,000 mcg Documented By: ISAURO Cyproheptadine HCl (Cyproheptadine Hcl 4 Mg Tablet) 4 mg PO TID [facility] Last Admin: 12/12/23 08:16 Dose: 4 mg Documented By: ISAURO Docusate Sodium (Docusate Sodium 100 Mg Capsule) 100 mg PO BID [facility] Last Admin: 12/12/23 08:16 Dose: 100 mg Documented By: ISAURO Enoxaparin Sodium (Enoxaparin Sodium 40 Mg/0.4 Ml Syringe) 40 mg SUBCUT Q24H [facility] Last Admin: 12/11/23 22:00 Dose: 40 mg Documented By: PAUL Hydroxyzine HCl (Hydroxyzine Hcl 25 Mg Tablet) 25 mg PO Q8H PRN PRN Reason: anxiety Last Admin: 12/11/23 00:28 Dose: 25 mg Documented By: CEASAR Ibuprofen (Ibuprofen 800 Mg Tablet) 800 mg PO TID PRN PRN Reason: Pain, Mild (Pain Scale 1-3) Loratadine (Loratadine 10 Mg Tablet) 10 mg PO BEDTIME [facility] Last Admin: 12/11/23 21:59 Dose: 10 mg Documented By: PAUL Lorazepam (Lorazepam 2 Mg/Ml Vial) 0.5 mg IVPUSH Q8H [facility] Last Admin: 12/12/23 06:08 Dose: Not Given Documented By: PAUL Non-Admin Reason: Patient Asleep Magnesium Hydroxide (Milk Of Magnesia 30 Ml Oral.Susp) 30 ml PO DAILY PRN PRN Reason: Constipation Melatonin (Melatonin 3 Mg Tablet) 6 mg PO BEDTIME PRN PRN Reason: Insomnia Last Admin: 12/11/23 00:29 Dose: 6 mg Documented By: CEASAR Ondansetron HCl (Ondansetron Hcl 4 Mg/2 Ml Vial) 4 mg IVPUSH Q8H PRN PRN Reason: Nausea and Vomiting Senna/Docusate Sodium (Sennosides/Docusate Sodium Tablet) 1 tab PO BID [facility] Last Admin: 12/12/23 08:16 Dose: 1 tab Documented By: ISAURO Sodium Chloride (0.9 % Sodium Chloride Flush 3 Ml Syringe) 3 ml IVFLUSH QSHIFT [facility] Last Admin: 12/12/23 08:16 Dose: 3 ml Documented By: ISAURO Vitamin D (Cholecalciferol (Vitamin D3) 25 Mcg Tablet) 50 mcg PO DAILY [facility] Last Admin: 12/12/23 08:17 Dose: 50 mcg Documented By: ISAURO Zolpidem Tartrate (Zolpidem Tartrate 5 Mg Tablet) 10 mg PO BEDTIME [facility] Last Admin: 12/11/23 23:42 Dose: 10 mg Documented By: PAUL Labs 12/12/23 06:02 12/12/23 06:02 Labs: Laboratory Results - last 24 hr 12/12/23 06:02 MCV 88.4 MCH 28.5 MCHC 32.2 RDW 12.8 Plt Count 188 MPV 10.4 Absolute Nucleated RBC 0.000 Nucleated RBC % (auto) 0.0 Anion Gap 10 L Estim Creat Clear Calc 86.7 Estimated GFR > 60 Fasting Glucose 93 Calcium 8.8 Iron 50 TIBC 285 % Saturation 18 Unsat Iron Binding 235 Ferritin 36 C-Reactive Protein 0.48 Vitamin B12 > 2000 H Folate 8.0 Assessment and Plan (1) SSRI overdose: Status: Acute Plan 53F PMH fibromyalgia, cluster migraines, OCD, anxiety presented with multiple falls Multiple falls, ataxia, tremors Question polypharmacy versus underlying neurological condition, cocnern for seritonin syndorme MRI brain unremarkable (small chronic lacunarin right putamen) Neuro eval Hold psychiatric meds for now conitnue ativan, periactin DVT prophylaxis with Lovenox Full Code reason for continued hospitalization: Working up neurological disorder Quality Stroke Does the patient have a stroke diagnosis?: No VTE Prior VTE?: No VTE Risk Level:: Medical - moderate - high VTE Device Contraindication: Treatment Not Indicated VTE Drug Contraindication: N/A - Med Ordered
--- NOTE | 2023-12-12 10:20 | MHC.CM.PN ---
pt lives with has her car in parking lot had no previous services dc plan home no servies
[2023-12-12 11:23] VITALS: BP 144/72; PULSE 68; RESP 16; TEMP 36.2; O2SAT 97
--- NOTE | 2023-12-12 11:52 | PM.NEUROCN ---
History of Present Illness Data of Consult Service Date: 12/12/23 Primary Care Provider: Unknown Physician HPI Reason for consult: DIZZINESS 53 YEARS OLD WOMAN WITH UNDERLYING HISTORY OF MIGRAINE AND DEPRESSION APPARENTLY TAKING DOUBLE DOSE OF PRESCRIBED FLUOXETINE CAME TO HOSPITAL WITH DIZZINESS UNSTEADINESS AND FALLING. MRI OF BRAIN DID NOT REVEAL ANY ACUTE OR SIGNIFICANT CHRONIC PATHOLOGY. NOW SHE WAS FEELING BETTER. THERE WAS NO COMPLAINT OF DOUBLE VISION. Review of Systems Review of Systems: NO RECENT COLD OR FLU-LIKE ILLNESS PMFSH Past Medical History Medical History (Updated 12/12/23 @ 08:53 by Adalgisa Fitzpatrick NP) Cluster headaches Generalized anxiety disorder OCD (obsessive compulsive disorder) Fibromyalgia Surgical History Surgical History Hx of foot surgery H/O elbow surgery S/P gastric surgery H/O: hysterectomy History of appendectomy S/P cervical spinal fusion Social History Social History Patient Tobacco Use Status: Never used Tobacco service: No Meds Allergies Allergy/AdvReac Type Severity Reaction Status Date / Time Gadolinium-Containing Allergy Unknown ITCHING Verified 12/10/23 18:01 Contrast Medi [Gadolinium-Containing Contrast] Active Medications: Current Medications Acetaminophen (Acetaminophen 325 Mg Tablet) 650 mg PO Q6H PRN PRN Reason: Pain, Mild (Pain Scale 1-3), fever or headache Benzonatate (Benzonatate 100 Mg Capsule) 100 mg PO TID PRN PRN Reason: Cough Calcium Carbonate (Calcium Carbonate 750 Mg Tab.Chew) 750 mg PO Q4H PRN PRN Reason: Heartburn Cyanocobalamin (Cyanocobalamin (Vitamin B-12) 1,000 Mcg Tablet) 1,000 mcg PO DAILY [facility] Last Admin: 12/12/23 08:17 Dose: 1,000 mcg Cyproheptadine HCl (Cyproheptadine Hcl 4 Mg Tablet) 4 mg PO TID [facility] Last Admin: 12/12/23 08:16 Dose: 4 mg Docusate Sodium (Docusate Sodium 100 Mg Capsule) 100 mg PO BID [facility] Last Admin: 12/12/23 08:16 Dose: 100 mg Enoxaparin Sodium (Enoxaparin Sodium 40 Mg/0.4 Ml Syringe) 40 mg SUBCUT Q24H [facility] Last Admin: 12/11/23 22:00 Dose: 40 mg Hydroxyzine HCl (Hydroxyzine Hcl 25 Mg Tablet) 25 mg PO Q8H PRN PRN Reason: anxiety Last Admin: 12/11/23 00:28 Dose: 25 mg Ibuprofen (Ibuprofen 800 Mg Tablet) 800 mg PO TID PRN PRN Reason: Pain, Mild (Pain Scale 1-3) Loratadine (Loratadine 10 Mg Tablet) 10 mg PO BEDTIME [facility] Last Admin: 12/11/23 21:59 Dose: 10 mg Lorazepam (Lorazepam 2 Mg/Ml Vial) 0.5 mg IVPUSH Q8H [facility] Last Admin: 12/12/23 06:08 Dose: Not Given Magnesium Hydroxide (Milk Of Magnesia 30 Ml Oral.Susp) 30 ml PO DAILY PRN PRN Reason: Constipation Melatonin (Melatonin 3 Mg Tablet) 6 mg PO BEDTIME PRN PRN Reason: Insomnia Last Admin: 12/11/23 00:29 Dose: 6 mg Ondansetron HCl (Ondansetron Hcl 4 Mg/2 Ml Vial) 4 mg IVPUSH Q8H PRN PRN Reason: Nausea and Vomiting Senna/Docusate Sodium (Sennosides/Docusate Sodium Tablet) 1 tab PO BID [facility] Last Admin: 12/12/23 08:16 Dose: 1 tab Sodium Chloride (0.9 % Sodium Chloride Flush 3 Ml Syringe) 3 ml IVFLUSH QSHIFT [facility] Last Admin: 12/12/23 08:16 Dose: 3 ml Vitamin D (Cholecalciferol (Vitamin D3) 25 Mcg Tablet) 50 mcg PO DAILY [facility] Last Admin: 12/12/23 08:17 Dose: 50 mcg Zolpidem Tartrate (Zolpidem Tartrate 5 Mg Tablet) 10 mg PO BEDTIME [facility] Last Admin: 12/11/23 23:42 Dose: 10 mg Home Medications ?Medication ?Instructions ?Recorded ?Confirmed ?Last Taken ?Type acetaminophen 500 mg tablet 1,000 mg PO BID PRN fever or pain 12/10/23 12/10/23 12/09/23 History (Tylenol Extra Strength) amitriptyline 10 mg tablet 10 mg PO BEDTIME 12/10/23 12/10/23 12/09/23 History bupropion HCl 150 mg 24 hr tablet, 150 mg PO DAILY 12/10/23 12/10/23 12/10/23 History extended release cetirizine 10 mg tablet 10 mg PO BEDTIME 12/10/23 12/10/23 12/09/23 History cholecalciferol (vitamin D3) 50 50 mcg PO DAILY 12/10/23 12/10/23 12/10/23 History mcg (2,000 unit) capsule cyanocobalamin (vitamin B-12) 1,000 mcg PO DAILY 12/10/23 12/10/23 12/10/23 History 1,000 mcg tablet docusate sodium 100 mg capsule 100 mg PO BID 12/10/23 12/10/23 12/10/23 History duloxetine 60 mg capsule,delayed 60 mg PO BEDTIME 12/10/23 12/10/23 12/09/23 History release fluoxetine 40 mg capsule 80 mg PO DAILY 12/10/23 12/10/23 12/10/23 History hydroxyzine HCl 25 mg tablet 25 mg PO Q8H PRN anxiety 12/10/23 12/10/23 12/09/23 History ibuprofen 800 mg tablet 800 mg PO TID PRN Pain 12/10/23 12/10/23 12/09/23 History pregabalin 300 mg capsule 300 mg PO BID 12/10/23 12/10/23 12/10/23 History sennosides 8.6 mg-docusate sodium 1 tab PO BID 12/10/23 12/10/23 12/10/23 History 50 mg tablet (Stimulant Laxative Plus) zolpidem 10 mg tablet 10 mg PO BEDTIME 12/10/23 12/10/23 12/09/23 History Physical Exam Vital Signs: Vital Signs: Last Vital Signs Temp 97.2 F 12/12/23 11:23 Pulse 68 12/12/23 11:23 Resp 16 12/12/23 11:23 BP 144/72 H 12/12/23 11:23 Pulse Ox 97 12/12/23 11:23 O2 Del Method Room Air 12/12/23 11:23 BMI result Body Mass Index 35.4 Neuro: Other: HE IS ALERT AND AWAKE WITH NORMAL SPONTANEITY OF SPEECH FLUENCY COMPREHENSION AND AFFECT. SHE SAW ME 70 YEARS AGO AND RIGHT AWAY RECOGNIZE ME. FACE WAS SYMMETRICAL. VISUAL WELLS ARE FULL. DEEP TENDON REFLEXES WERE ON THE BRISKER SIDE AT 3-4 RANGE WITH FLEXOR PLANTARS. SHE WAS ABLE TO GET UP AND WALK IN A CAUTIOUS GAIT. SPEECH WAS NORMAL. Results Labs 12/12/23 06:02 12/12/23 06:02 Labs: Short CBC 12/12/23 Range/Units 06:02 WBC 5.6 (4.8-10.8) X10*3/uL Hgb 12.5 (12.0-16.0) g/dl Hct 38.8 (37.0-47.0) % Plt Count 188 (160-400) X10*3/uL BMP 12/12/23 06:02 Sodium 141 Potassium 3.8 Chloride 108 Carbon Dioxide 27 BUN 16 Creatinine 0.76 Calcium 8.8 MRI OF BRAIN DID NOT REVEAL ANY ACUTE PATHOLOGY. Assessment and Plan (1) Serotonin syndrome: Status: Acute 53 YEARS OLD WOMAN PROBABLY WITH SEROTONIN SYNDROME. SYMPTOMATIC TREATMENT AND ADJUSTMENT OF MEDICINES ARE RECOMMENDED. Procedures Date of Service Date of Service: 12/12/23
[2023-12-12] MEDS: LORazepam 2 MG/ML VIAL 0.5 MG IVPUSH ×2 (14:45→23:50)
[2023-12-12] MEDS: Ibuprofen 800 MG TABLET PO (15:01)
[2023-12-12 15:10] VITALS: BP 135/67; PULSE 71; RESP 16; TEMP 36.1; O2SAT 94
[2023-12-12 19:17] VITALS: BP 136/84; PULSE 87; RESP 20; TEMP 36.3; O2SAT 97
[2023-12-12] MEDS: Loratadine 10 MG TABLET PO (21:18)
[2023-12-12 23:32] VITALS: BP 153/74; PULSE 86; RESP 18; TEMP 36.1; O2SAT 99
[2023-12-12] MEDS: Zolpidem Tartrate 5 MG TABLET 10 MG PO (23:49)
[2023-12-12] MEDS: Enoxaparin Sodium 40 MG/0.4 ML SYRINGE SUBCUT (23:50)
[2023-12-12] MEDS: Acetaminophen 325 MG TABLET 650 MG PO (23:55)
[2023-12-13 03:12] VITALS: BP 157/74; PULSE 66; RESP 16; TEMP 36.3; O2SAT 98
[2023-12-13] MEDS: LORazepam 2 MG/ML VIAL 0.5 MG IVPUSH ×2 (05:48→23:45)
[2023-12-13 07:59] VITALS: BP 157/70; PULSE 72; RESP 16; TEMP 36.1; O2SAT 98
[2023-12-13] MEDS: Sennosides/Docusate Sodium TABLET 1 TAB PO ×2 (09:02→20:41)
[2023-12-13] MEDS: Cyproheptadine HCl 4 MG TABLET PO ×3 (09:02→20:41)
[2023-12-13] MEDS: Cyanocobalamin (Vitamin B-12) 1,000 MCG TABLET 1000 MCG PO (09:02)
[2023-12-13] MEDS: Cholecalciferol (Vitamin D3) 25 MCG TABLET 50 MCG PO (09:02)
[2023-12-13] MEDS: Docusate Sodium 100 MG CAPSULE PO ×2 (09:02→20:41)
[2023-12-13] MEDS: 0.9 % Sodium Chloride Flush 3 ML SYRINGE IVFLUSH ×3 (09:02→20:43)
--- NOTE | 2023-12-13 09:47 | P.PNIM_ITS ---
Subjective Subjective Date of Service: 12/13/23 Interval History: no change in symptoms Physical Exam 2 Vital Signs: Vital Signs: Last Vital Signs Temp 96.9 F 12/13/23 07:59 Pulse 72 12/13/23 07:59 Resp 16 12/13/23 07:59 BP 157/70 H 12/13/23 07:59 Pulse Ox 98 12/13/23 07:59 O2 Del Method Room Air 12/13/23 07:59 BMI result Body Mass Index 35.4 Neuro: Other: HE IS ALERT AND AWAKE WITH NORMAL SPONTANEITY OF SPEECH FLUENCY COMPREHENSION AND AFFECT. FACE WAS SYMMETRICAL. VISUAL WELLS ARE FULL. DEEP TENDON REFLEXES WERE ON THE BRISKER SIDE AT 3-4 RANGE WITH FLEXOR PLANTARS. SHE WAS ABLE TO GET UP AND WALK IN A CAUTIOUS GAIT. SPEECH WAS NORMAL. Objective Data Active Medications Acetaminophen (Acetaminophen 325 Mg Tablet) 650 mg PO Q6H PRN PRN Reason: Pain, Mild (Pain Scale 1-3), fever or headache Last Admin: 12/12/23 23:55 Dose: 650 mg Documented By: ONUR Benzonatate (Benzonatate 100 Mg Capsule) 100 mg PO TID PRN PRN Reason: Cough Calcium Carbonate (Calcium Carbonate 750 Mg Tab.Chew) 750 mg PO Q4H PRN PRN Reason: Heartburn Cyanocobalamin (Cyanocobalamin (Vitamin B-12) 1,000 Mcg Tablet) 1,000 mcg PO DAILY [facility] Last Admin: 12/13/23 09:02 Dose: 1,000 mcg Documented By: SALVADOR Cyproheptadine HCl (Cyproheptadine Hcl 4 Mg Tablet) 4 mg PO TID [facility] Last Admin: 12/13/23 09:02 Dose: 4 mg Documented By: SALVADOR Docusate Sodium (Docusate Sodium 100 Mg Capsule) 100 mg PO BID [facility] Last Admin: 12/13/23 09:02 Dose: 100 mg Documented By: SALVADOR Enoxaparin Sodium (Enoxaparin Sodium 40 Mg/0.4 Ml Syringe) 40 mg SUBCUT Q24H [facility] Last Admin: 12/12/23 23:50 Dose: 40 mg Documented By: ONUR Comments: pt wanted all meds the same time Hydroxyzine HCl (Hydroxyzine Hcl 25 Mg Tablet) 25 mg PO Q8H PRN PRN Reason: anxiety Last Admin: 12/11/23 00:28 Dose: 25 mg Documented By: CEASAR Ibuprofen (Ibuprofen 800 Mg Tablet) 800 mg PO TID PRN PRN Reason: Pain, Mild (Pain Scale 1-3) Last Admin: 12/12/23 15:01 Dose: 800 mg Documented By: ISAURO Loratadine (Loratadine 10 Mg Tablet) 10 mg PO BEDTIME [facility] Last Admin: 12/12/23 21:18 Dose: 10 mg Documented By: ONUR Lorazepam (Lorazepam 2 Mg/Ml Vial) 0.5 mg IVPUSH Q8H [facility] Last Admin: 12/13/23 05:48 Dose: 0.5 mg Documented By: ONUR Magnesium Hydroxide (Milk Of Magnesia 30 Ml Oral.Susp) 30 ml PO DAILY PRN PRN Reason: Constipation Melatonin (Melatonin 3 Mg Tablet) 6 mg PO BEDTIME PRN PRN Reason: Insomnia Last Admin: 12/11/23 00:29 Dose: 6 mg Documented By: CEASAR Ondansetron HCl (Ondansetron Hcl 4 Mg/2 Ml Vial) 4 mg IVPUSH Q8H PRN PRN Reason: Nausea and Vomiting Senna/Docusate Sodium (Sennosides/Docusate Sodium Tablet) 1 tab PO BID [facility] Last Admin: 12/13/23 09:02 Dose: 1 tab Documented By: SALVADOR Sodium Chloride (0.9 % Sodium Chloride Flush 3 Ml Syringe) 3 ml IVFLUSH QSHIFT [facility] Last Admin: 12/13/23 09:02 Dose: 3 ml Documented By: SALVADOR Vitamin D (Cholecalciferol (Vitamin D3) 25 Mcg Tablet) 50 mcg PO DAILY [facility] Last Admin: 12/13/23 09:02 Dose: 50 mcg Documented By: SALVADOR Zolpidem Tartrate (Zolpidem Tartrate 5 Mg Tablet) 10 mg PO BEDTIME [facility] Last Admin: 12/12/23 23:49 Dose: 10 mg Documented By: ONUR Comments: pt requested now Labs 12/12/23 06:02 12/12/23 06:02 Assessment and Plan (1) SSRI overdose: Status: Acute Plan 53F PMH fibromyalgia, cluster migraines, OCD, anxiety presented with multiple falls Multiple falls, ataxia, tremors seritonin syndorme MRI brain unremarkable (small chronic lacunarin right putamen) Neuro appreciated Hold serotonigenic meds for now continue ativan, periactin DVT prophylaxis with Lovenox Full Code reason for continued hospitalization: still symptomatic Quality Stroke Does the patient have a stroke diagnosis?: No VTE Prior VTE?: No VTE Risk Level:: Medical - moderate - high VTE Device Contraindication: Treatment Not Indicated VTE Drug Contraindication: N/A - Med Ordered
[2023-12-13 12:00] VITALS: BP 123/57; PULSE 70; RESP 14; TEMP 36.4; O2SAT 97
[2023-12-13 15:34] VITALS: BP 138/70; PULSE 69; RESP 16; TEMP 36.6; O2SAT 96
[2023-12-13 20:00] VITALS: BP 136/73; PULSE 78; RESP 20; TEMP 36.4; O2SAT 93
[2023-12-13] MEDS: Loratadine 10 MG TABLET PO (20:41)
[2023-12-13 23:27] VITALS: BP 134/66; PULSE 72; RESP 18; TEMP 36.3; O2SAT 97
[2023-12-13] MEDS: Zolpidem Tartrate 5 MG TABLET 10 MG PO (23:44)
[2023-12-13] MEDS: Enoxaparin Sodium 40 MG/0.4 ML SYRINGE SUBCUT (23:45)
[2023-12-14] VITALS (7 sets, daily range): BP systolic 136–156; BP diastolic 67–76; PULSE 64–86; RESP 16–18; TEMP 36.1–36.8; O2SAT 96–97
[2023-12-14] MEDS: Sennosides/Docusate Sodium TABLET 1 TAB PO ×2 (08:33→21:49)
[2023-12-14] MEDS: Docusate Sodium 100 MG CAPSULE PO ×2 (08:34→21:50)
[2023-12-14] MEDS: 0.9 % Sodium Chloride Flush 3 ML SYRINGE IVFLUSH ×3 (08:34→21:50)
[2023-12-14] MEDS: Cholecalciferol (Vitamin D3) 25 MCG TABLET 50 MCG PO (08:34)
[2023-12-14] MEDS: Cyproheptadine HCl 4 MG TABLET PO ×3 (08:34→21:50)
[2023-12-14] MEDS: Cyanocobalamin (Vitamin B-12) 1,000 MCG TABLET 1000 MCG PO (08:34)
--- NOTE | 2023-12-14 08:36 | HO.PM.IMPN ---
Subjective Subjective Date of Service: 12/14/23 Interval History: Still with weakness, tremulousness Physical Exam Vital Signs: Vital Signs: Last Vital Signs Temp 97.8 F 12/14/23 07:16 Pulse 69 12/14/23 07:16 Resp 16 12/14/23 07:16 BP 156/70 H 12/14/23 08:31 Pulse Ox 97 12/14/23 07:16 O2 Del Method Room Air 12/14/23 07:16 BMI result Body Mass Index 35.4 Neuro: Other: HE IS ALERT AND AWAKE WITH NORMAL SPONTANEITY OF SPEECH FLUENCY COMPREHENSION AND AFFECT. FACE WAS SYMMETRICAL. VISUAL WELLS ARE FULL. DEEP TENDON REFLEXES WERE ON THE BRISKER SIDE AT 3-4 RANGE WITH FLEXOR PLANTARS. SHE WAS ABLE TO GET UP AND WALK IN A CAUTIOUS GAIT. SPEECH WAS NORMAL. Objective Data Active Medications Acetaminophen (Acetaminophen 325 Mg Tablet) 650 mg PO Q6H PRN PRN Reason: Pain, Mild (Pain Scale 1-3), fever or headache Last Admin: 12/12/23 23:55 Dose: 650 mg Documented By: ONUR Benzonatate (Benzonatate 100 Mg Capsule) 100 mg PO TID PRN PRN Reason: Cough Calcium Carbonate (Calcium Carbonate 750 Mg Tab.Chew) 750 mg PO Q4H PRN PRN Reason: Heartburn Cyanocobalamin (Cyanocobalamin (Vitamin B-12) 1,000 Mcg Tablet) 1,000 mcg PO DAILY [facility] Last Admin: 12/14/23 08:34 Dose: 1,000 mcg Documented By: ISAURO Cyproheptadine HCl (Cyproheptadine Hcl 4 Mg Tablet) 4 mg PO TID [facility] Last Admin: 12/14/23 08:34 Dose: 4 mg Documented By: ISAURO Docusate Sodium (Docusate Sodium 100 Mg Capsule) 100 mg PO BID [facility] Last Admin: 12/14/23 08:34 Dose: 100 mg Documented By: ISAURO Enoxaparin Sodium (Enoxaparin Sodium 40 Mg/0.4 Ml Syringe) 40 mg SUBCUT Q24H [facility] Last Admin: 12/13/23 23:45 Dose: 40 mg Documented By: ONUR Hydroxyzine HCl (Hydroxyzine Hcl 25 Mg Tablet) 25 mg PO Q8H PRN PRN Reason: anxiety Last Admin: 12/11/23 00:28 Dose: 25 mg Documented By: CEASAR Ibuprofen (Ibuprofen 800 Mg Tablet) 800 mg PO TID PRN PRN Reason: Pain, Mild (Pain Scale 1-3) Last Admin: 12/12/23 15:01 Dose: 800 mg Documented By: ISAURO Loratadine (Loratadine 10 Mg Tablet) 10 mg PO BEDTIME [facility] Last Admin: 12/13/23 20:41 Dose: 10 mg Documented By: ONUR Lorazepam (Lorazepam 2 Mg/Ml Vial) 0.5 mg IVPUSH Q8H [facility] Last Admin: 12/14/23 06:47 Dose: Not Given Documented By: ONUR Non-Admin Reason: pt asleep Magnesium Hydroxide (Milk Of Magnesia 30 Ml Oral.Susp) 30 ml PO DAILY PRN PRN Reason: Constipation Melatonin (Melatonin 3 Mg Tablet) 6 mg PO BEDTIME PRN PRN Reason: Insomnia Last Admin: 12/11/23 00:29 Dose: 6 mg Documented By: CEASAR Ondansetron HCl (Ondansetron Hcl 4 Mg/2 Ml Vial) 4 mg IVPUSH Q8H PRN PRN Reason: Nausea and Vomiting Senna/Docusate Sodium (Sennosides/Docusate Sodium Tablet) 1 tab PO BID [facility] Last Admin: 12/14/23 08:33 Dose: 1 tab Documented By: ISAURO Sodium Chloride (0.9 % Sodium Chloride Flush 3 Ml Syringe) 3 ml IVFLUSH QSHIFT [facility] Last Admin: 12/14/23 08:34 Dose: 3 ml Documented By: ISAURO Vitamin D (Cholecalciferol (Vitamin D3) 25 Mcg Tablet) 50 mcg PO DAILY [facility] Last Admin: 12/14/23 08:34 Dose: 50 mcg Documented By: ISAURO Zolpidem Tartrate (Zolpidem Tartrate 5 Mg Tablet) 10 mg PO BEDTIME [facility] Last Admin: 12/13/23 23:44 Dose: 10 mg Documented By: ONUR Comments: pt requested at this time Labs 12/12/23 06:02 12/12/23 06:02 Assessment and Plan (1) SSRI overdose: Status: Acute Plan 53F PMH fibromyalgia, cluster migraines, OCD, anxiety presented with multiple falls Multiple falls, ataxia, tremors seritonin syndorme MRI brain unremarkable (small chronic lacunar infarct in right putamen) Neuro appreciated Hold serotonigenic meds for now (fluoxetine half-life 4-6 days) continue ativan, periactin DVT prophylaxis with Lovenox Full Code reason for continued hospitalization: still symptomatic Quality Stroke Does the patient have a stroke diagnosis?: No VTE Prior VTE?: No VTE Risk Level:: Medical - moderate - high VTE Device Contraindication: Treatment Not Indicated VTE Drug Contraindication: N/A - Med Ordered
--- NOTE | 2023-12-14 13:07 | MHC.CM.PN ---
Per MD rounds patient not medically cleared for dc. PT rec [facility] vs home w/ services. CM met with patient at bedside. Patient requesting referrals for both, and will decide on dc plan closer to dc date. [facility] and [facility] following. [facility]NAN will continue to follow.
[2023-12-14] MEDS: LORazepam 2 MG/ML VIAL 0.5 MG IVPUSH ×2 (14:28→21:47)
[2023-12-14] MEDS: Loratadine 10 MG TABLET PO (21:49)
[2023-12-14] MEDS: Enoxaparin Sodium 40 MG/0.4 ML SYRINGE SUBCUT (21:50)
[2023-12-14] MEDS: Zolpidem Tartrate 5 MG TABLET 10 MG PO (21:52)
[2023-12-15] MEDS: LORazepam 2 MG/ML VIAL 0.5 MG IVPUSH (05:38)
[2023-12-15 07:12] VITALS: BP 137/73; PULSE 63; RESP 16; TEMP 36.1; O2SAT 98
--- NOTE | 2023-12-15 09:09 | P.PNIM_ITS ---
Subjective Subjective Date of Service: 12/15/23 Interval History: still feels sleepy, unsteady Physical Exam 2 Vital Signs: Vital Signs: Last Vital Signs Temp 97.0 F 12/15/23 07:12 Pulse 63 12/15/23 07:12 Resp 16 12/15/23 07:12 BP 137/73 12/15/23 07:12 Pulse Ox 98 12/15/23 07:12 O2 Del Method Room Air 12/15/23 07:12 BMI result Body Mass Index 35.4 still hyperreflexic, unsteady, less tremulous Objective Data Active Medications Acetaminophen (Acetaminophen 325 Mg Tablet) 650 mg PO Q6H PRN PRN Reason: Pain, Mild (Pain Scale 1-3), fever or headache Last Admin: 12/12/23 23:55 Dose: 650 mg Documented By: ONUR Benzonatate (Benzonatate 100 Mg Capsule) 100 mg PO TID PRN PRN Reason: Cough Calcium Carbonate (Calcium Carbonate 750 Mg Tab.Chew) 750 mg PO Q4H PRN PRN Reason: Heartburn Cyanocobalamin (Cyanocobalamin (Vitamin B-12) 1,000 Mcg Tablet) 1,000 mcg PO DAILY [facility] Last Admin: 12/14/23 08:34 Dose: 1,000 mcg Documented By: ISAURO Cyproheptadine HCl (Cyproheptadine Hcl 4 Mg Tablet) 4 mg PO TID [facility] Last Admin: 12/14/23 21:50 Dose: 4 mg Documented By: ISMAEL Docusate Sodium (Docusate Sodium 100 Mg Capsule) 100 mg PO BID [facility] Last Admin: 12/14/23 21:50 Dose: 100 mg Documented By: ISMAEL Enoxaparin Sodium (Enoxaparin Sodium 40 Mg/0.4 Ml Syringe) 40 mg SUBCUT Q24H [facility] Last Admin: 12/14/23 21:50 Dose: 40 mg Documented By: ISMAEL Hydroxyzine HCl (Hydroxyzine Hcl 25 Mg Tablet) 25 mg PO Q8H PRN PRN Reason: anxiety Last Admin: 12/11/23 00:28 Dose: 25 mg Documented By: CEASAR Ibuprofen (Ibuprofen 800 Mg Tablet) 800 mg PO TID PRN PRN Reason: Pain, Mild (Pain Scale 1-3) Last Admin: 12/12/23 15:01 Dose: 800 mg Documented By: ISAURO Loratadine (Loratadine 10 Mg Tablet) 10 mg PO BEDTIME [facility] Last Admin: 12/14/23 21:49 Dose: 10 mg Documented By: ISMAEL Lorazepam (Lorazepam 2 Mg/Ml Vial) 0.5 mg IVPUSH Q8H [facility] Last Admin: 12/15/23 05:38 Dose: 0.5 mg Documented By: ISMAEL Magnesium Hydroxide (Milk Of Magnesia 30 Ml Oral.Susp) 30 ml PO DAILY PRN PRN Reason: Constipation Melatonin (Melatonin 3 Mg Tablet) 6 mg PO BEDTIME PRN PRN Reason: Insomnia Last Admin: 12/11/23 00:29 Dose: 6 mg Documented By: CEASAR Ondansetron HCl (Ondansetron Hcl 4 Mg/2 Ml Vial) 4 mg IVPUSH Q8H PRN PRN Reason: Nausea and Vomiting Senna/Docusate Sodium (Sennosides/Docusate Sodium Tablet) 1 tab PO BID [facility] Last Admin: 12/14/23 21:49 Dose: 1 tab Documented By: ISMAEL Sodium Chloride (0.9 % Sodium Chloride Flush 3 Ml Syringe) 3 ml IVFLUSH QSHIFT [facility] Last Admin: 12/14/23 21:50 Dose: 3 ml Documented By: ISMAEL Vitamin D (Cholecalciferol (Vitamin D3) 25 Mcg Tablet) 50 mcg PO DAILY [facility] Last Admin: 12/14/23 08:34 Dose: 50 mcg Documented By: ISAURO Zolpidem Tartrate (Zolpidem Tartrate 5 Mg Tablet) 10 mg PO BEDTIME [facility] Last Admin: 12/14/23 21:52 Dose: 10 mg Documented By: ISMAEL Labs 12/12/23 06:02 12/12/23 06:02 Assessment and Plan (1) SSRI overdose: Status: Acute Plan 53F PMH fibromyalgia, cluster migraines, OCD, anxiety presented with multiple falls Multiple falls, ataxia, tremors seritonin syndorme MRI brain unremarkable (small chronic lacunar infarct in right putamen) Neuro appreciated continue to Hold serotonigenic meds for now (fluoxetine half-life 4-6 days) continue ativan, periactin DVT prophylaxis with Lovenox Full Code reason for continued hospitalization: still symptomatic Quality Stroke Does the patient have a stroke diagnosis?: No VTE Prior VTE?: No VTE Risk Level:: Medical - moderate - high VTE Device Contraindication: Treatment Not Indicated VTE Drug Contraindication: N/A - Med Ordered
[2023-12-15] MEDS: 0.9 % Sodium Chloride Flush 3 ML SYRINGE IVFLUSH (09:22)
[2023-12-15] MEDS: Cholecalciferol (Vitamin D3) 25 MCG TABLET 50 MCG PO (09:23)
[2023-12-15] MEDS: Docusate Sodium 100 MG CAPSULE PO ×2 (09:23→20:33)
[2023-12-15] MEDS: Cyanocobalamin (Vitamin B-12) 1,000 MCG TABLET 1000 MCG PO (09:23)
[2023-12-15] MEDS: Cyproheptadine HCl 4 MG TABLET PO ×3 (09:23→20:33)
[2023-12-15] MEDS: Sennosides/Docusate Sodium TABLET 1 TAB PO ×2 (09:23→20:33)
[2023-12-15 11:06] VITALS: BP 133/66; PULSE 88; RESP 17; TEMP 36.2; O2SAT 97
--- NOTE | 2023-12-15 14:10 | PC.NURSE ---
patients' IV outdated, infiltrated, and tender. This RN attempted to place new IV but pt refused and requested a message be sent to MD asking if she can have no IV access and IV ativan change to PO. Message sent to Dr. Cui and MD agrees no need for IV access at this time and will reorder IV ativan to PO. Old IV removed by this RN
[2023-12-15] MEDS: LORazepam 1 MG TABLET PO ×2 (14:22→20:33)
[2023-12-15 15:09] VITALS: BP 124/58; PULSE 79; RESP 20; TEMP 36.4; O2SAT 96
[2023-12-15 19:02] VITALS: BP 126/58; PULSE 84; RESP 20; TEMP 36.3; O2SAT 95
[2023-12-15] MEDS: Loratadine 10 MG TABLET PO (20:33)
--- NOTE | 2023-12-15 21:00 | PC.NURSE ---
patient request 2100 Ambien be given closer to midnight
[2023-12-15 23:19] VITALS: BP 136/69; PULSE 83; RESP 16; TEMP 36; O2SAT 95
[2023-12-15] MEDS: Zolpidem Tartrate 5 MG TABLET 10 MG PO (23:52)
[2023-12-15] MEDS: Enoxaparin Sodium 40 MG/0.4 ML SYRINGE SUBCUT (23:53)
[2023-12-16] MEDS: LORazepam 1 MG TABLET PO (02:53)
[2023-12-16 02:57] VITALS: BP 119/58; PULSE 70; RESP 16; TEMP 36; O2SAT 96
[2023-12-16 03:03] LABS: Zinc 70 mcg/dL (60-130)
[2023-12-16 06:56] VITALS: BP 149/69; PULSE 68; RESP 15; TEMP 36.6; O2SAT 98
[2023-12-16] MEDS: Cholecalciferol (Vitamin D3) 25 MCG TABLET 50 MCG PO (09:42)
[2023-12-16] MEDS: Docusate Sodium 100 MG CAPSULE PO ×2 (09:42→21:17)
[2023-12-16] MEDS: Cyanocobalamin (Vitamin B-12) 1,000 MCG TABLET 1000 MCG PO (09:42)
[2023-12-16] MEDS: Sennosides/Docusate Sodium TABLET 1 TAB PO ×2 (09:42→21:17)
[2023-12-16] MEDS: Cyproheptadine HCl 4 MG TABLET PO ×2 (09:43→21:17)
[2023-12-16 10:13] VITALS: BP 149/69; PULSE 68; O2SAT 98
[2023-12-16] MEDS: LORazepam 0.5 MG TABLET PO ×2 (10:39→23:52)
--- NOTE | 2023-12-16 10:44 | P.PNIM_ITS ---
Subjective Subjective Date of Service: 12/16/23 Interval History: Seen and evaluated this morning Feels better overall with no more treamors still having gait abnormalities restarting home meds no other events Review of Systems Review of Systems: Yes all other systems are reviewed and are negative Physical Exam 2 Vital Signs: Vital Signs: Last Vital Signs Temp 98 F 12/16/23 06:56 Pulse 68 12/16/23 10:13 Resp 15 12/16/23 06:56 BP 149/69 H 12/16/23 10:13 Pulse Ox 98 12/16/23 10:13 O2 Del Method Room Air 12/16/23 06:56 BMI result Body Mass Index 35.4 Const: Other: Constitutional : Awake, interactive, not in distress Neck : Normal inspection, Supple Cardiovascular : RRR, no JVP, no lower extremity edema Respiratory : good bilateral air entry, no crackles, wheezes or rhonchi Gastrointestinal: soft, lax, Normal bowel sounds, Non tender Skin : Warm, Dry Neurological : Alert & oriented to self and place, No focal deficit , no tremors , CN 2-12 within normal Objective Data Active Medications Acetaminophen (Acetaminophen 325 Mg Tablet) 650 mg PO Q6H PRN PRN Reason: Pain, Mild (Pain Scale 1-3), fever or headache Last Admin: 12/12/23 23:55 Dose: 650 mg Documented By: ONUR Benzonatate (Benzonatate 100 Mg Capsule) 100 mg PO TID PRN PRN Reason: Cough Bupropion HCl (Bupropion Hcl Xl 150 Mg Tab.Er.24h) 150 mg PO DAILY [facility], [facility]1983 Calcium Carbonate (Calcium Carbonate 750 Mg Tab.Chew) 750 mg PO Q4H PRN PRN Reason: Heartburn Cyanocobalamin (Cyanocobalamin (Vitamin B-12) 1,000 Mcg Tablet) 1,000 mcg PO DAILY FOR[facility], [facility]1983 Last Admin: 12/16/23 09:42 Dose: 1,000 mcg Documented By: AMMON Cyproheptadine HCl (Cyproheptadine Hcl 4 Mg Tablet) 4 mg PO TID [facility], [facility]1983 Last Admin: 12/16/23 09:43 Dose: 4 mg Documented By: AMMON Docusate Sodium (Docusate Sodium 100 Mg Capsule) 100 mg PO BID [facility], [facility]1983 Last Admin: 12/16/23 09:42 Dose: 100 mg Documented By: AMMON Enoxaparin Sodium (Enoxaparin Sodium 40 Mg/0.4 Ml Syringe) 40 mg SUBCUT Q24H FOR[facility], [facility]–1983 Last Admin: 12/15/23 23:53 Dose: 40 mg Documented By: CAREN Fluoxetine HCl (Fluoxetine Hcl 20 Mg Capsule) 40 mg PO DAILY FOR[facility], [facility]1983 Hydroxyzine HCl (Hydroxyzine Hcl 25 Mg Tablet) 25 mg PO Q8H PRN PRN Reason: anxiety Last Admin: 12/11/23 00:28 Dose: 25 mg Documented By: CEASAR Ibuprofen (Ibuprofen 800 Mg Tablet) 800 mg PO TID PRN PRN Reason: Pain, Mild (Pain Scale 1-3) Last Admin: 12/12/23 15:01 Dose: 800 mg Documented By: ISAURO Loratadine (Loratadine 10 Mg Tablet) 10 mg PO BEDTIME [facility], [facility] Last Admin: 12/15/23 20:33 Dose: 10 mg Documented By: CAREN Lorazepam (Lorazepam 0.5 Mg Tablet) 0.5 mg PO Q6H PRN PRN Reason: anxiety/restlessness Magnesium Hydroxide (Milk Of Magnesia 30 Ml Oral.Susp) 30 ml PO DAILY PRN PRN Reason: Constipation Melatonin (Melatonin 3 Mg Tablet) 6 mg PO BEDTIME PRN PRN Reason: Insomnia Last Admin: 12/11/23 00:29 Dose: 6 mg Documented By: CEASAR Ondansetron HCl (Ondansetron Hcl 4 Mg/2 Ml Vial) 4 mg IVPUSH Q8H PRN PRN Reason: Nausea and Vomiting Pregabalin (Pregabalin 150 Mg Capsule) 150 mg PO BID [facility], [facility]1983 Senna/Docusate Sodium (Sennosides/Docusate Sodium Tablet) 1 tab PO BID [facility], [facility] Last Admin: 12/16/23 09:42 Dose: 1 tab Documented By: AMMON Sodium Chloride (0.9 % Sodium Chloride Flush 3 Ml Syringe) 3 ml IVFLUSH QSHIFT [facility], [facility]–1983 Last Admin: 12/16/23 09:45 Dose: Not Given Documented By: AMMON Non-Admin Reason: No Access Vitamin D (Cholecalciferol (Vitamin D3) 25 Mcg Tablet) 50 mcg PO DAILY [facility], [facility]1983 Last Admin: 12/16/23 09:42 Dose: 50 mcg Documented By: AMMON Zolpidem Tartrate (Zolpidem Tartrate 5 Mg Tablet) 10 mg PO BEDTIME JC Last Admin: 12/15/23 23:52 Dose: 10 mg Documented By: CAREN Comments: patient requested at this time Labs 12/12/23 06:02 12/12/23 06:02 Labs: Laboratory Results - last 24 hr 12/12/23 06:02 Zinc 70 Assessment and Plan (1) Serotonin syndrome: Status: Acute (2) Bilateral leg weakness: Status: Acute (3) Recurrent falls while walking: Status: Acute Plan 53F PMH fibromyalgia, cluster migraines, OCD, anxiety presented with multiple falls Multiple falls, ataxia, tremors Treated as Acute Serotonin syndrome MRI brain unremarkable (small chronic lacunar infarct in right putamen) Neuro input appreciated, likely serotonin syndrome Psych input appreciated, Hold serotonigenic meds, restart one agent only continue ativan PRN, to DC periactin restart Bupropion, Lyrica and PRozac DC Amytriptilyne and Duloxetine PT rec SNF vs home PT DVT prophylaxis with Lovenox Full Code reason for continued hospitalization: still symptomatic, restarting home medications for monitoring. Quality Stroke Does the patient have a stroke diagnosis?: No VTE Prior VTE?: No VTE Risk Level:: Medical - moderate - high VTE Device Contraindication: Treatment Not Indicated VTE Drug Contraindication: N/A - Med Ordered
--- NOTE | 2023-12-16 10:44 | MHC.CM.PN ---
Per MD, likely d/c tomorrow. CM discussed w/ patient who is agreeable to home w/ services via [facility]. CM will continue to follow.
[2023-12-16] MEDS: Pregabalin 150 MG CAPSULE PO ×2 (10:50→21:17)
[2023-12-16] MEDS: buPROPion HCl XL 150 MG TAB.ER.24H PO (10:50)
[2023-12-16 15:07] VITALS: BP 145/70; PULSE 82; RESP 20; TEMP 36.6; O2SAT 97
[2023-12-16 19:00] VITALS: BP 121/73; PULSE 84; RESP 18; TEMP 36.8; O2SAT 97
[2023-12-16] MEDS: Loratadine 10 MG TABLET PO (21:17)
--- NOTE | 2023-12-16 21:20 | PC.NURSE ---
patient wants to take her 21:00 scheduled Ambien around midnight
[2023-12-16] MEDS: Acetaminophen 325 MG TABLET 650 MG PO (21:23)
[2023-12-16 23:21] VITALS: BP 156/78; PULSE 76; RESP 16; TEMP 36; O2SAT 96
[2023-12-16] MEDS: Zolpidem Tartrate 5 MG TABLET 10 MG PO (23:44)
[2023-12-16] MEDS: Enoxaparin Sodium 40 MG/0.4 ML SYRINGE SUBCUT (23:44)
[2023-12-16] MEDS: Ibuprofen 800 MG TABLET PO (23:53)
[2023-12-17 03:22] VITALS: BP 156/70; PULSE 67; RESP 16; TEMP 36; O2SAT 99
[2023-12-17 07:05] LABS: Hematocrit 38.6 % (37.0-47.0); Mean Corpuscular HGB Conc 31.1 g/dl (31.0-35.0); Mean Platelet Volume 10.2 fL (9.4-12.3); Platelet Count 191 X10*3/uL (160-400); Red Blood Count 4.29 X10*6/uL (4.20-5.50); White Blood Count 7.4 X10*3/uL (4.8-10.8)
[2023-12-17 07:16] LABS: Anion Gap 10 (12-20); Blood Urea Nitrogen 19 mg/dL (9-16); Carbon Dioxide 29 mmol/L (22-29); Chloride 108 mmol/L (96-108); Creatinine Clr Calc Pharmacy 81.3; Estimated Glomerular Filt Rate > 60; Glucose Random 85 mg/dL (60-115); Potassium 3.7 mmol/L (3.3-5.1); Sodium 143 mmol/L (135-145)
[2023-12-17 08:00] VITALS: BP 160/60; PULSE 60; RESP 14; TEMP 36.2; O2SAT 98
[2023-12-17] MEDS: Cholecalciferol (Vitamin D3) 25 MCG TABLET 50 MCG PO (08:36)
[2023-12-17] MEDS: Cyanocobalamin (Vitamin B-12) 1,000 MCG TABLET 1000 MCG PO (08:36)
[2023-12-17] MEDS: Pregabalin 150 MG CAPSULE PO (08:36)
[2023-12-17] MEDS: Docusate Sodium 100 MG CAPSULE PO (08:36)
[2023-12-17] MEDS: Sennosides/Docusate Sodium TABLET 1 TAB PO (08:36)
[2023-12-17] MEDS: FLUoxetine HCl 20 MG CAPSULE 40 MG PO (08:36)
[2023-12-17] MEDS: buPROPion HCl XL 150 MG TAB.ER.24H PO (08:36)
[2023-12-17] MEDS: Ondansetron ODT 4 MG TAB.RAPDIS TRANSLINGU (09:11)
[2023-12-17 10:31] VITALS: BP 160/60; PULSE 60; O2SAT 98
--- NOTE | 2023-12-17 10:41 | MHC.CM.PN ---
Addendum entered by Tiffany Pierce RN 12/17/23 14:42: BLS transport booked for [facility] at 5pm. RN/ and patient aware. Addendum entered by Tiffany Pierce RN 12/17/23 10:47: Bed accepted @ [facility]. Auth pending. Original Note: PT rec STR. Patient agreeable to this plan. No facility preference. Per MD, medically cleared. Referrals in place, awaiting response.
[2023-12-17 11:12] VITALS: BP 158/77; PULSE 89; RESP 14; TEMP 36.8; O2SAT 98
[2023-12-17 12:00] VITALS: BP 118/58; PULSE 85; RESP 14; TEMP 36.6; O2SAT 99
--- NOTE | 2023-12-17 14:53 | PM.DS ---
DS: Providers Provider Date of Service: 12/17/23 Date of admission: 12/10/23 22:41 Date of discharge: 12/17/23 Primary care physician: Aicha Schafer MD Consults: 12/10/23 22:41 Consult to Neurology Routine Consulting Provider: [facility] Reason for consultation: Intermittent ataxia, frequent falls, tremors, ?MS vs Parkinson's 12/11/23 08:06 Consult to Psychiatry Routine Consulting Provider: Psych Covering Reason for consultation: concern for adverse effects/falls due to polypharmacy DS: Diagnosis Discharge Diagnosis (1) Serotonin syndrome: Status: Acute (2) Bilateral leg weakness: Status: Acute (3) Recurrent falls while walking: Status: Acute (4) Clonus: Status: Acute (5) SSRI overdose: Status: Acute DS: Summary Hospital Course Hospital Course: Admission note HPI Pt is a 53-year-old female with a PMH significant for?fibromyalgia, cluster migraines, OCD, and anxiety who presents to the ED with?multiple complaints including accidental medication overdose as well as multiple falls at home. Patient reports found out today after review with her psychiatrist that she had been taking double her prescribed fluoxetine due to a pharmacy error: Has been taking 160 mg daily for the past 1.5 months instead of 80 mg daily. Reports daily nausea and vomiting during this time period. Patient also reports she had 2 falls at home. The 1st incident occurred when she was returning home in the morning and she walked through her door, ?blacked out? 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 Patient was asymptomatic --no lightheadedness or dizziness -- and has no recollection if she tripped or for how long she was unconscious. Later in the afternoon patient was at the top of the stairs when her ?legs gave out? and she fell down the stairs hitting her head and back on the wall, before bending backwards and continuing to roll down the stairs. Denies losing consciousness during this episode. No lightheadedness or dizziness. Patient reports she has been experiencing difficulty walking, intermittent lower leg weakness, and ataxia that has been ongoing for the past year, significantly worsening the past few months. During this past year patient has multiple other medical complaints, including intermittent upper, lower, and whole-body resting tremors; loss of fine motor function or upper extremities; loss of sensation of legs especially at night where they feel like they are ?flying? or ?floating?; worsening migraines; blurry vision of past two months where she can no longer read close up; and difficulty word finding. Has not been to see any provider for these symptoms, though notes she has an appointment to see her PCP next month. No fever, chills, nausea, vomiting, abdominal pain. Denies shortness or breath or difficulty breathing. No chest pain/pressure, palpitations. In the ED pt was mildly hypertensive at 146/79, vitals otherwise WNL and stable. Labs were grossly unremarkable. No leukocytosis. Stable H&H. No significant electrolyte abnormalities. Renal and hepatic function WNL. Troponin negative. TSH WNL. CT?of head found no acute intracranial hemorrhage or edematous territorial infarction. CT of cervical spine negative for evidence of acute fracture or traumatic subluxation, though did show instrumented anterior fusion of C5-C6, and mild multilevel degenerative spondylo arthropathy. EKG demonstrated normal sinus rhythm without evidence of significant ST elevations or depressions. Pt will be admitted to the hospital under observation for treatment and further evaluation of generalized weakness, ataxia, and frequent falls at home. Hospital course The patient was admitted for evaluation of Multiple falls, ataxia, tremors who was diagnosed as Acute Serotonin syndrome as MRI brain was unremarkable showing small chronic lacunar infarct in right putamen as he was seen by Neurology and psychiatry who suggested treating Serotonin syndrome. Treated by Holding serotonigenic medications and Ativan with Periactin. IV fluids and psychological support. the patient improved significantly over the course of hospital stay as tremors, altered mentaiton improved back to baseline. Discussed with psychiatry who recommended to restart Bupropion, Lyrica and PRozac and discontinue Amytriptilyne and Duloxetine upon discharge. Evaluated by PT who recommended STR. will be placed at SNF for therapy. The patient will likely need less than 30 days of SNF stay. Discharge plan Stop Duloxetine, Amytriptyline To do physical therapy Follow with PCP as outpatient Time Attestation Discharge Coordination Time (in mins): 43 Quality: Safe Use of Opioids Does Pt have an Active Cancer Diagnosis on the Problem List?: No Quality: Stroke Does the patient have a stroke diagnosis?: No Physical Exam Vital Signs: Vital Signs: Last Vital Signs Temp 97.9 F 12/17/23 12:00 Pulse 85 12/17/23 12:00 Resp 14 12/17/23 12:00 BP 118/58 L 12/17/23 12:00 Pulse Ox 99 12/17/23 12:00 O2 Del Method Room Air 12/17/23 12:00 BMI result Body Mass Index 35.4 Const: Other: Constitutional : Awake, interactive, not in distress Neck : Normal inspection, Supple Cardiovascular : RRR, no JVP, no lower extremity edema Respiratory : good bilateral air entry, no crackles, wheezes or rhonchi Gastrointestinal: soft, lax, Normal bowel sounds, Non tender Skin : Warm, Dry Neurological : Alert & oriented to self and place, No focal deficit , no tremors , CN 2-12 within normal DS: Data Data Completed and Pending Labs on day of discharge: Laboratory Results - last 24 hr 12/17/23 05:28 WBC 7.4 RBC 4.29 Hgb 12.0 Hct 38.6 MCV 90.0 MCH 28.0 MCHC 31.1 RDW 13.0 Plt Count 191 MPV 10.2 Absolute Nucleated RBC 0.000 Nucleated RBC % (auto) 0.0 Sodium 143 Potassium 3.7 Chloride 108 Carbon Dioxide 29 Anion Gap 10 L BUN 19 H Creatinine 0.81 Estim Creat Clear Calc 81.3 Estimated GFR > 60 Random Glucose 85 Calcium 9.0 Imaging Chest x-ray: Radiologist's impression: ITS Impressions Cervical Spine CT 12/10/23 18:30 IMPRESSION: 1. No evidence of acute intracranial hemorrhage or edematous territorial infarction. 2. No evidence of acute fracture or traumatic subluxation of the cervical spine. 3. Instrumented anterior fusion of C5-C6. 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 Electronically signed by: Colin Sung DO 12/10/2023 07:41 PM EDT RP Head CT 12/10/23 18:30 IMPRESSION: 1. No evidence of acute intracranial hemorrhage or edematous territorial infarction. 2. No evidence of acute fracture or traumatic subluxation of the cervical spine. 3. Instrumented anterior fusion of C5-C6. 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 Electronically signed by: Colin Sung DO 12/10/2023 07:41 PM EDT RP Brain MRI 12/11/23 18:49 IMPRESSION: No acute intracranial abnormality. Small chronic lacunar infarct in the right putamen. Electronically signed by: Cindi Hope MD 12/11/2023 07:20 PM EDT RP Discharge Plan Discharge Anticipated Discharge Date/Time: 12/17/23 14:45 Patient Disposition: Xfer SNF Discharge Diagnosis: Falls Serotonin syndrome Referrals: [facility] [Outside] - 1 Day (short term rehab) Physician,Unknown J [Physician] - 1 Week Discharge Medications: New ondansetron 4 mg Tablet,Disintegrating 4 mg translingual Q6H PRN (Reason: Nausea And Vomiting) Qty: 20 0RF Continued fluoxetine 40 mg capsule 80 mg PO DAILY cetirizine 10 mg tablet 10 mg PO BEDTIME ibuprofen 800 mg tablet 800 mg PO TID PRN (Reason: Pain) sennosides-docusate sodium [Stimulant Laxative Plus] 8.6-50 mg tablet 1 tab PO BID cyanocobalamin (vitamin B-12) 1,000 mcg tablet 1,000 mcg PO DAILY docusate sodium 100 mg capsule 100 mg PO BID hydroxyzine HCl 25 mg tablet 25 mg PO Q8H PRN (Reason: anxiety) zolpidem 10 mg tablet 10 mg PO BEDTIME bupropion HCl 150 mg tablet extended release 24 hr 150 mg PO DAILY pregabalin 300 mg capsule 300 mg PO BID cholecalciferol (vitamin D3) 50 mcg (2,000 unit) capsule 50 mcg PO DAILY acetaminophen [Tylenol Extra Strength] 500 mg tablet 1,000 mg PO BID PRN (Reason: fever or pain) Discontinued amitriptyline 10 mg tablet 10 mg PO BEDTIME duloxetine 60 mg capsule,delayed release(DR/EC) 60 mg PO BEDTIME Discharge Orders: Discharge Order (Routine); Ordered 12/17/23 Ordered By: Demetrio Mcintosh Diet: Advance to usual diet Activity on Discharge: As tolerated Stand Alone Forms: Patient Portal Discharge page Print Language: Syrian Care Plan Goals: You were treated for Serotonin syndrome with tremors, muscle twitching and confusion. evaluated by neurology and psychiatry who recommended treatment for serotonin syndrome. you improved back to baseline. Stop Duloxetine, Amytriptyline To do physical therapy Follow with PCP as outpatient Health Concerns: Read below Plan of Treatment: Read below Assessment: Read below
[2023-12-17 15:19] VITALS: BP 133/75; PULSE 85; RESP 14; TEMP 36.8; O2SAT 96
[2023-12-18 06:28] LABS: Vitamin B1 <6 nmol/L (8-30)
== END 2023-12-17 17:44 | disposition skilled nursing facility (03) | DRG 812 ==
LOC: HO.ED 21:07 → HO.EDOVER 22:54 → HO.S3 12-11 12:25 → HO.EDOVER 12-12 08:53
PROVIDERS: Internal Medicine; Physician Assistant; Admitting Provider Student in an Organized Health Care Education/Training Program; Emergency Provider Internal Medicine; PCP Internal Medicine; Visit Provider Student in an Organized Health Care Education/Training Program
DX: T43.221A Poisoning by selective serotonin reuptake inhibitors, accidental (unintentional), initial encounter (principal); F32.A Depression, unspecified; M79.7 Fibromyalgia; R29.6 Repeated falls; R27.0 Ataxia, unspecified; G25.1 Drug-induced tremor; G43.909 Migraine, unspecified, not intractable, without status migrainosus; Z86.73 Personal history of transient ischemic attack (TIA), and cerebral infarction without residual deficits; K59.09 Other constipation; F41.1 Generalized anxiety disorder; Z79.899 Other long term (current) drug therapy
CPT/HCPCS: 36415; 70450; 70551; 72125; 80048; 80076; 80143; 80179; 80307; 81003; 82550; 82607; 82728; 82746; 83540; 83735; 84425; 84443; 84484; 84630; 85025; 85027; 85610; 85730; 86140; 93005; 97116; 97162; 97166; 97530; 97535; 99221; 99285; J1650; J2060

== ENCOUNTER → 2023-12-10 22:41 | Outpatient (BNV) | payer BC, MEDICAID, SELFPAY | PROVIDERS: Admitting Provider Student in an Organized Health Care Education/Training Program; Emergency Provider Internal Medicine; Visit Provider Student in an Organized Health Care Education/Training Program | DX: T43.221A Poisoning by selective serotonin reuptake inhibitors, accidental (unintentional), initial encounter (principal) | CPT/HCPCS: 99222; 99232; 99233; 99239 ==

== ENCOUNTER → 2023-12-10 22:41 | Outpatient (BNV) | payer BC, MEDICAID, SELFPAY | PROVIDERS: Admitting Provider Student in an Organized Health Care Education/Training Program; Emergency Provider Internal Medicine; Visit Provider Psychiatry & Neurology Neurology | DX: T43.221A Poisoning by selective serotonin reuptake inhibitors, accidental (unintentional), initial encounter (principal); G25.79 Other drug induced movement disorders | CPT/HCPCS: 99222 ==

== ENCOUNTER → 2023-12-10 22:41 | Outpatient (BNV) | payer BC, MEDICAID, SELFPAY | PROVIDERS: Admitting Provider Student in an Organized Health Care Education/Training Program; Emergency Provider Internal Medicine; Visit Provider Social Worker | DX: F41.1 Generalized anxiety disorder (principal); T43.221A Poisoning by selective serotonin reuptake inhibitors, accidental (unintentional), initial encounter | CPT/HCPCS: 99232 ==

== ENCOUNTER 2024-01-06 20:00 | Emergency (ER) | payer BC, MEDICAID, SELFPAY ==
[2024-01-06 20:05] VITALS: BP 130/80; PULSE 94; O2SAT 98
[2024-01-06 20:07] VITALS: BP 127/68; PULSE 78; RESP 18; TEMP 36.4; O2SAT 95
[2024-01-06 20:16] VITALS: BP 127/68; PULSE 78; RESP 18; TEMP 36.4; O2SAT 95; BMI 32.9
--- NOTE | 2024-01-06 21:56 | ED_ITS ---
HPI - General Adult General Chief complaint: General Medical Stated complaint: Poss serotonin pois. tremors, AMS Time Seen by Provider: 01/06/24 21:07 Source: patient Mode of arrival: ambulatory Limitations: no limitations History of Present Illness ED Provider: melchor BELTRÁN narrative: Patient's history of OCD on multiple medication including amitriptyline, bupropion, fluoxetine, hydroxyzine, pregabalin for last 1 week since patient at home restarted taking all her medication patient is not supposed to take duloxetine amitriptyline patient complaining of tremors which have been going on for 3 weeks feels anxious no rigidity no fever Related Data Home Medications ?Medication ?Instructions ?Recorded ?Confirmed acetaminophen 500 mg tablet 1,000 mg PO BID PRN fever or pain 12/10/23 01/06/24 (Tylenol Extra Strength) bupropion HCl 150 mg 24 hr tablet, 150 mg PO DAILY 12/10/23 01/06/24 extended release cetirizine 10 mg tablet 10 mg PO BEDTIME 12/10/23 01/06/24 cholecalciferol (vitamin D3) 50 50 mcg PO DAILY 12/10/23 01/06/24 mcg (2,000 unit) capsule cyanocobalamin (vitamin B-12) 1,000 mcg PO DAILY 12/10/23 01/06/24 1,000 mcg tablet docusate sodium 100 mg capsule 100 mg PO BID 12/10/23 01/06/24 fluoxetine 40 mg capsule 80 mg PO DAILY 12/10/23 01/06/24 hydroxyzine HCl 25 mg tablet 100 mg PO Q8H PRN anxiety 12/10/23 01/06/24 ibuprofen 800 mg tablet 800 mg PO TID PRN Pain 12/10/23 01/06/24 pregabalin 300 mg capsule 300 mg PO BID 12/10/23 01/06/24 sennosides 8.6 mg-docusate sodium 1 tab PO BID 12/10/23 01/06/24 50 mg tablet (Stimulant Laxative Plus) amitriptyline 10 mg tablet 10 mg PO BEDTIME 01/06/24 01/06/24 topiramate 50 mg tablet 50 mg PO BID 01/06/24 01/06/24 Previous Rx's ?Medication ?Instructions ?Recorded ondansetron 4 mg disintegrating 4 mg translingual Q6H PRN Nausea 12/17/23 tablet And Vomiting #20 tabs zolpidem 10 mg tablet 10 mg PO BEDTIME #30 tabs 12/17/23 Allergies Allergy/AdvReac Type Severity Reaction Status Date / Time Gadolinium-Containing Allergy Unknown ITCHING Verified 01/06/24 20:22 Contrast Medi [Gadolinium-Containing Contrast] fluticasone [From Flonase] Allergy Difficulty Verified 01/06/24 20:23 Swallowing Latex, Natural Rubber Allergy Hives Verified 01/06/24 20:22 prednisone Allergy Difficulty Verified 01/06/24 20:23 Swallowing Review of Systems 2 Review of Systems: Yes all other systems are reviewed and are negative PMF Past Medical History Medical History Cluster headaches Generalized anxiety disorder OCD (obsessive compulsive disorder) Fibromyalgia Surgical History Hx of foot surgery H/O elbow surgery S/P gastric surgery H/O: hysterectomy History of appendectomy S/P cervical spinal fusion Social History Social History Patient Tobacco Use Status: Never used Tobacco Smoked in Last 30 Days: No Use of substances other than those prescribed or required for medical reasons: No Advance Directives: No Advance Directives Information Provided: No Do you have a plan to hurt others: No Plan Patient : No service: No Physical Exam ED Vital Signs: Vital Signs - 24 hr 01/06/24 20:07 01/06/24 20:16 01/06/24 22:39 Temperature 97.5 F 97.5 F 97.8 F Pulse Rate 78 78 66 Respiratory Rate 18 18 18 Blood Pressure 127/68 127/68 147/80 H Pulse Oximetry 95 95 95 Oxygen Delivery Method Room Air Room Air Room Air 01/07/24 00:00 01/07/24 02:00 01/07/24 04:00 Temperature 98.4 F 97.9 F 98.7 F Pulse Rate 63 61 64 Respiratory Rate 16 18 16 Blood Pressure 168/88 H 157/79 H 153/94 H Pulse Oximetry 96 95 96 Oxygen Delivery Method Room Air Room Air Room Air BMI result Body Mass Index 32.9 Appearance: Alert. Oriented X3. No acute distress anxious Eyes: PERRLA, No Nystagmus ENT: Pharynx normal. Oral Mucosa moist Neck: Normal inspection. Neck supple. CVS: Normal heart rate and rhythm. Pulses normal. Respiratory: No respiratory distress. Equal air entry bilateral, no wheezing/rales/rhonchi Abdomen: Soft and nontender. Bowel sounds are present, no mass palpable, no CVA tenderness Skin: Skin warm and dry. Normal skin color. Normal skin turgor. Extremities: No lower extremity edema. No calf tenderness Neuro: Oriented X 3. No motor deficit. 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 01/06/24 21:51 01/06/24 21:51 Labs: Lab Results 01/06/24 Range/Units 21:51 WBC 9.9 (4.8-10.8) X10*3/uL RBC 4.32 (4.20-5.50) X10*6/uL Hgb 12.3 (12.0-16.0) g/dl Hct 37.8 (37.0-47.0) % MCV 87.5 (80.0-98.0) fL MCH 28.5 (27.0-33.0) pg MCHC 32.5 (31.0-35.0) g/dl RDW 13.3 (11.0-16.0) % Plt Count 218 (160-400) X10*3/uL MPV 10.3 (9.4-12.3) fL Immature Gran % (Auto) 0.4 (0.0-0.4) % Neut % (Auto) 70.5 (45-73) % Lymph % (Auto) 20.0 (20-40) % [place] % (Auto) 7.1 (2-11) % Eos % (Auto) 1.7 (0-4) % Baso % (Auto) 0.3 (0-2) % Lymph # (Auto) 2.0 (1.2-4.9) X10*3/uL [place] # (Auto) 0.7 (0.1-1.2) X10*3/uL Eos # (Auto) 0.2 (0.0-0.4) X10*3/uL Baso # (Auto) 0.0 (0.0-0.2) X10*3/uL Abs Immat Gran (auto) 0.04 H (0.00-0.03) X10*3/uL Absolute Neuts (auto) 7.0 (2.0-8.3) x10*3/uL Absolute Nucleated RBC 0.000 (0.0-0.012) X10*3/uL Nucleated RBC % (auto) 0.0 (0.0-0.2) /100WBC Sodium 145 (135-145) mmol/L Potassium 3.9 (3.3-5.1) mmol/L Chloride 109 H (96-108) mmol/L Carbon Dioxide 26 (22-29) mmol/L Anion Gap 14 (12-20) BUN 21 H (9-16) mg/dL Creatinine 0.84 (0.5-1.4) mg/dL Estim Creat Clear Calc 78.4 Estimated GFR > 60 Random Glucose 102 (60-115) mg/dL Calcium 8.8 (8.4-10.2) mg/dL Total Bilirubin 0.3 (0.0-1.0) mg/dL AST 24 (5-31) U/L ALT 24 (0-31) U/L Alkaline Phosphatase 78 (39-117) U/L Total Protein 6.3 L (6.5-8.0) g/dL Albumin 3.7 (3.5-5.0) g/dL Salicylates < 5.0 L (15-30) mg/dL Acetaminophen < 3 (<30) mcg/mL Discharge Plan Discharge Clinical Impression: Anxiety, Polypharmacy Patient Disposition: Home, Self-Care Instructions: Anxiety (ED) Additional Instructions: Continue fluoxetine but stop amitriptyline and duloxetine as advised Follow up with the psychiatrist Prescriptions: No Action fluoxetine 40 mg capsule 80 mg PO DAILY cetirizine 10 mg tablet 10 mg PO BEDTIME ibuprofen 800 mg tablet 800 mg PO TID PRN (Reason: Pain) sennosides-docusate sodium [Stimulant Laxative Plus] 8.6-50 mg tablet 1 tab PO BID cyanocobalamin (vitamin B-12) 1,000 mcg tablet 1,000 mcg PO DAILY docusate sodium 100 mg capsule 100 mg PO BID hydroxyzine HCl 25 mg tablet 100 mg PO Q8H PRN (Reason: anxiety) bupropion HCl 150 mg tablet extended release 24 hr 150 mg PO DAILY pregabalin 300 mg capsule 300 mg PO BID cholecalciferol (vitamin D3) 50 mcg (2,000 unit) capsule 50 mcg PO DAILY acetaminophen [Tylenol Extra Strength] 500 mg tablet 1,000 mg PO BID PRN (Reason: fever or pain) ondansetron 4 mg Tablet,Disintegrating 4 mg translingual Q6H PRN (Reason: Nausea And Vomiting) Qty: 20 0RF zolpidem 10 mg tablet 10 mg PO BEDTIME Qty: 30 0RF amitriptyline 10 mg tablet 10 mg PO BEDTIME topiramate 50 mg tablet 50 mg PO BID Print Language: Greek
[2024-01-06 21:57] LABS: MANUAL DIFF FLAG NO
[2024-01-06 21:59] LABS: Basophils Percent Auto 0.3 % (0-2); Eosinophils Absolute Auto 0.2 X10*3/uL (0.0-0.4); Eosinophils Percent Auto 1.7 % (0-4); Hematocrit 37.8 % (37.0-47.0); Hemoglobin 12.3 g/dl (12.0-16.0); Imm Gran Abs Auto 0.04 X10*3/uL (0.00-0.03); Imm Gran Pct Auto 0.4 % (0.0-0.4); Mean Corpuscular HGB Conc 32.5 g/dl (31.0-35.0); Mean Corpuscular Hemoglobin 28.5 pg (27.0-33.0); Mean Corpuscular Volume 87.5 fL (80.0-98.0); Mean Platelet Volume 10.3 fL (9.4-12.3); Monocytes Absolute Auto 0.7 X10*3/uL (0.1-1.2); Monocytes Percent Auto 7.1 % (2-11); Neutrophils Percent Auto 70.5 % (45-73); Platelet Count 218 X10*3/uL (160-400); Red Blood Count 4.32 X10*6/uL (4.20-5.50); Red Cell Distribution Width 13.3 % (11.0-16.0); White Blood Count 9.9 X10*3/uL (4.8-10.8)
[2024-01-06 22:14] LABS: Alanine Aminotransferase 24 U/L (0-31); Albumin Level 3.7 g/dL (3.5-5.0); Alkaline Phosphatase 78 U/L (39-117); Anion Gap 14 (12-20); Aspartate Amino Transferase 24 U/L (5-31); Bilirubin Total 0.3 mg/dL (0.0-1.0); Blood Urea Nitrogen 21 mg/dL (9-16); Calcium 8.8 mg/dL (8.4-10.2); Carbon Dioxide 26 mmol/L (22-29); Chloride 109 mmol/L (96-108); Creatinine Clr Calc Pharmacy 78.4; Estimated Glomerular Filt Rate > 60; Glucose Random 102 mg/dL (60-115); Potassium 3.9 mmol/L (3.3-5.1); Sodium 145 mmol/L (135-145); Total Protein 6.3 g/dL (6.5-8.0)
[2024-01-06 22:16] LABS: Acetaminophen LAB < 3 mcg/mL (<30); Salicylate < 5.0 mg/dL (15-30)
[2024-01-06 22:39] VITALS: BP 147/80; PULSE 66; RESP 18; TEMP 36.6; O2SAT 95
--- NOTE | 2024-01-06 23:34 | PC.NURSE ---
pt resting quietly with eyes closed, when this nurse, touched the pt, she woke up and jerked, acted very scared. Pt states she can call an Uber to come get her, but she is not better, she still feels the same. Dr Serrano, will go and speak with pt
[2024-01-07] VITALS: BP 168/88; PULSE 63; RESP 16; TEMP 36.9; O2SAT 96
[2024-01-07] MEDS: 0.9 % Sodium Chloride 1,000 ML 999 ML IV (01:42)
[2024-01-07] MEDS: LORazepam 2 MG/ML VIAL 1 MG IVPUSH (01:43)
[2024-01-07 02:00] VITALS: BP 157/79; PULSE 61; RESP 18; TEMP 36.6; O2SAT 95
[2024-01-07 04:00] VITALS: BP 153/94; PULSE 64; RESP 16; TEMP 37.1; O2SAT 96
[2024-01-07 05:56] VITALS: BP 146/67; PULSE 65; RESP 16; TEMP 37.1; O2SAT 95
[2024-01-07 06:00] VITALS: BP 160/72; PULSE 70; RESP 18; TEMP 36.8; O2SAT 95
--- NOTE | 2024-01-07 06:34 | PC.NURSE ---
pt left at 0600
--- NOTE | 2024-01-07 08:03 | PHA.MEDREC ---
Pharmacy Consult ? Medication Reconciliation Pharmacy has reviewed the medication reconciliation completed by nursing, all claims matched with the exception of vitamin B-12 and tylenol which are available OTC.
== END 2024-01-07 06:00 | disposition home or self-care (01) ==
PROVIDERS: Emergency Provider Internal Medicine; PCP Internal Medicine
DX: F41.9 Anxiety disorder, unspecified (principal); G25.2 Other specified forms of tremor; T43.211A Poisoning by selective serotonin and norepinephrine reuptake inhibitors, accidental (unintentional), initial encounter; T43.011A Poisoning by tricyclic antidepressants, accidental (unintentional), initial encounter; Y92.9 Unspecified place or not applicable
CPT/HCPCS: 36415; 80053; 80143; 80179; 85025; 96361; 96374; 99285; J2060

== ENCOUNTER 2024-08-15 08:50 | Outpatient (AMB) | payer BC, MEDICAID, SELFPAY ==
--- NOTE | 2024-08-15 09:11 | MHC.OFFWIV ---
Intake Vital Signs 08/15/24 09:21 BP 118/80 Blood Pressure Location Lt brachial Position Sitting Pulse 58 Pulse Source Pulse Oximeter Temp 97.6 F Temp Source Oral Pulse Oximetry (%) 98 Oxygen Delivery Method Room Air Intake Visit Reasons: [employer] Throat pain, head pain Intake Note: Patient here for SOB, pain when taking a deep breathe and throat pain that has been present for a few days. Patient Tobacco Use Status: Never used Tobacco Allergies Gadolinium-Containing Contrast Medi [Gadolinium-Containing Contrast] Allergy (Unknown, Verified 08/15/24 09:20) ITCHING fluticasone [From Flonase] Allergy (Verified 08/15/24 09:20) Difficulty Swallowing Latex, Natural Rubber Allergy (Verified 08/15/24 09:20) Hives prednisone Allergy (Verified 08/15/24 09:20) Difficulty Swallowing Do you need a note to return to daycare/school/sports/work: Yes HPI HPI Comments History of Present Illness Details History of Present Illness The patient is a 53-year-old female presenting with respiratory difficulty and an array of related symptoms since Thursday. She describes she has pain with breathing and radiation to the back and increased discomfort with deep breaths, triggering a cough. Asthma management is limited by her adverse reaction to inhalers, leaving Benadryl and cetirizine as her main allergy control methods. The patient states that she has been having nasal congestion, sinus pressure, facial swelling, and postnasal drip. She reports the production of green chunky phlegm when coughing. A recent fever spiked to 101.4?F, not evaluated on the current day due to DayQuil consumption earlier in the morning. She had episode of diarrhea. 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 No individuals there have confirmed COVID-19 cases known to her. She also notes a sore throat but recalls no significant history of recurrent sinus infections. She denies abd pain, nausea, back pain, muscles aches, fever or chills. Physical Exam General: Cooperative, healthy appearing, comfortable, no acute distress and well developed Orientation: Patient oriented x3 Head: Swollen in the maxillary sinuses bilaterally. TTP of the maxillary and frontal sinuses bilaterally. Ears: Hearing grossly normal bilaterally, but patient reports ear pain. No fluid noted, TMs normal. Nose: Normal external nose present. No swelling noted. Face and sinus: Swollen, sinus pressure noted, fluid present in sinuses Neck: Normal visual inspection, lymph nodes swollen, Yes full ROM Respiratory: Normal respiratory effort. Clear to auscultation bilaterally Cardiovascular: Regular rate and rhythm. Normal S1 and S2 Skin: No rashes or lesions noted Patient was informed and verbally consented to the use of an ambient scribe for clinic note documentation during this visit. [facility] Medical History Cluster headaches Generalized anxiety disorder OCD (obsessive compulsive disorder) Fibromyalgia Surgical History Hx of foot surgery H/O elbow surgery S/P gastric surgery H/O: hysterectomy History of appendectomy S/P cervical spinal fusion Social History Patient Tobacco Use Status: Never used Tobacco service: No Review of Systems Const All systems reviewed & are unremarkable except as noted in HPI and below Physical Exam Vital Signs: Last Vital Signs Temp 97.6 F 08/15/24 09:21 Pulse 58 08/15/24 09:21 BP 118/80 08/15/24 09:21 Pulse Ox 98 08/15/24 09:21 Oxygen Delivery Method Room Air 08/15/24 09:21 Results AMB Rapid Strep AMB Rapid Strep Negative Last Edit by JAY Lazo on 08/15/24 10:16 Assessment & Plan Assessment & Plan (1) Congestion of upper airway: Code(s): J98.8 - Other specified respiratory disorders Plan Most likely CAP vs URI vs sinusitis vs covid vs flu x-ray in the office reviewed and negative most likely dx is sinusitis Plan An x-ray will be performed to assess for pneumonia given the respiratory symptoms and fever. Antibiotic therapy will be adjusted based on x-ray results, with treatment of a possible sinus infection considered. The patient is advised to continue antihistamines for allergy support, addressing constraints due to her inhaler and nasal spray reactions. Orders: Orders XR chest 2V Today R05.9 - Cough, unspecified AMB Rapid Strep Screen Today Z13.9 - Encounter for screening, unspecified Medications: New amoxicillin-pot clavulanate 875-125 mg 1 tab PO Q12H 10 days 20 tabs 0RF Coding Level of Care Code New Pt Level 4 (78482) Diagnoses Congestion of upper airway J98.8
--- OUTSIDE RECORDS SUMMARY | 2024-08-15 09:17 | XMS_ITS | Clinical Summary ---
Author Organization [facility] Address [address] [place] [address] Phone Care Team Providers Care Budget Engineer Name Role Phone Aicha Taylor MD Primary Care Prov ider Allergies Active Allergy Reactions Criticality Noted Date Comments Albuterol Cough,Itching,Whee zing High 03/21/2015 Relieved w/Benadryl 50mg PO Bupivacaine 05/10/2013 Unsure of reaction to bupivicaine- tolerates lidocaine and novocaine [place] Itching 05/03/2024 Fluticasone Propionate Anaphylaxis High 08/21/2011 Gadolinium-Containing Contrast Media 04/21/2013 Pt stated she had itching/hives with MRI done at [facility] Iodinated Contrast Media Nausea And Vomiting 04/29/2011 Iohexol 05/10/2013 Latex 01/28/2010 hives Methocarbamol 11/05/2012 Methylprednisolone 05/10/2013 Montelukast 05/24/2015 Had visual hallucination Other Nausea And Vomiting 04/29/2011 Peg 3350-Electrolytes Nausea And Vomiting 04/29/2011 Prednisone 01/28/2010 Throat closes / hives Salicylic Acid 11/12/2017 Shellfish Derived 11/13/2010 Solu-Medrol W/Diluent 05/26/2024 Adonis's Wort Other High 12/26/2010 suicidal anaphylaxis Medications baclofen (LIORESAL) 10 mg tablet Take 1 tablet (10 mg total) by mouth. 01/29/20 18 Active buPROPion XL (WELLBUTRIN XL) 150 mg 24 hr tablet Take 1 tablet (150 mg total) by mouth 1 (one) time each day in the morning. 06/10/19 24 Active cholecalcifero l (VITAMIN D-3) 50 mcg (2,000 unit) capsule Take 1 capsule (2,000 Units total) by mouth 1 (one) time each day. 11/12/19 24 Active cyanocobalamin (VITAMIN B-12) 1,000 mcg/mL injection Inject 1 mL (1,000 mcg total) into the shoulder, thigh, or buttocks. 06/24/19 19 Active diclofenac (VOLTAREN) 1 % topical gel APPLY 4 GRAMS TOPICALLY TO THE AFFECTED AREA FOUR TIMES DAILY NEEDED FOR ARTHRITIS PAIN 10/21/19 19 Active docusate sodium (COLACE) 100 mg capsule Take 1 capsule (100 mg total) by mouth 2 (two) times a day. 06/15/19 24 Active lidocaine (LIDODERM) 5 % patch APPLY 1 PATCH TOPICALLY TO SKIN FOR 12 HOURS ON THEN 12 HOURS OFF 02/12/20 23 Active loratadine (CLARITIN) 10 mg tablet Take 1 tablet (10 mg total) by mouth. 01/27/20 17 Active metaxalone (SKELAXIN) 800 mg tablet Take 1 tablet (800 mg total) by mouth 2 (two) times a day if needed. 03/23/19 19 Active sennosides 8.6 mg capsule Take 8.6 mg by mouth. 06/15/19 24 Active topiramate (TOPAMAX) 50 mg tablet Take 1 tablet (50 mg total) by mouth 2 (two) times a day. 09/21/19 19 Active tretinoin (RETIN-A) 0.025 % cream APPLY A PEA SIZED AMOUNT TOPICALLY EVERY NIGHT ON THE ACNE LESIONS. LIGHTLY COVER THE ENTIRE AFFECTED AREA 07/24/19 19 Active zolpidem (AMBIEN) 10 mg tablet 1 tablet (10 mg total) at bedtime as needed. 11/09/19 19 Active SUMAtriptan (IMITREX) 50 mg tablet TAKE 1 TO 2 TABLETS BY MOUTH AT ONSET OF HEADACHE. MAY REPEAT DOSE 1 TIME AFTER 2 HOURS, NEEDED. NO MORE THAN 4 TABLET DAILY 20 tablet 1 02/17/20 24 Active Stimulant Laxative Plus 8.6-50 mg per tablet TAKE 2 TABLET BY MOUTH DAILY 60 tablet 03/08/20 24 Active pyridoxine (B-6) 250 mg tablet Take 1 tablet (250 mg total) by mouth 1 (one) time each day. 30 tablet 2 04/05/19 25 026 Active pregabalin (LYRICA) 300 mg capsule Take 1 capsule (300 mg total) by mouth 2 (two) times a day. Max Daily Amount: 600 mg Active FLUoxetine (PROzac) 40 mg capsule Take 2 capsules (80 mg total) by mouth 1 (one) time each day. Active risperiDONE (RisperDAL) 0.5 mg tablet Take 1 tablet (0.5 mg total) by mouth 1 (one) time each day. Active cetirizine (ZyrTEC) 10 mg tablet TAKE 1 TABLET BY MOUTH DAILY 90 tablet 1 07/30/19 25 Active ferrous sulfate, dried (Slow Release Iron) 160 mg (50 mg iron) tablet extended release TAKE 1 TABLET BY MOUTH ONCE DAILY 30 tablet 08/10/19 25 Active folic acid (FOLVITE) 1 mg tablet TAKE 1 TABLET(1 MG) BY MOUTH 1 TIME EACH DAY 90 tablet 08/10/19 25 Active cetirizine (ZyrTEC) 10 mg tablet Take 1 tablet (10 mg total) by mouth 1 (one) time each day. 11/10/19 19 025 Discontinued ferrous sulfate 250 mg (50 mg iron) tablet extended release Take 1 tablet by mouth 1 (one) time each day. 30 tablet 2 04/05/19 25 025 Discontinued folic acid (FOLVITE) 1 mg tablet Take 1 tablet (1 mg total) by mouth 1 (one) time each day. 90 each 06/29/19 25 025 Discontinued Active Problems Problem Noted Date Diagnosed Date Gastric bypass status for obesity 05/03/2024 Assessment & Plan (05/26/2024 1:14 PM EDT): Patient reports she recently had gastric bypass a week ago. She is not taking p.o. intake due to nausea and overall illness. I recommend patient go to the hospital for fluids due to concern for dehydration and electrolyte imbalance. Patient was transferred to the hospital via ambulance. Gastroesophageal reflux disease 03/29/2024 Class 1 obesity without seri ous comorbidity with body mass index (BMI) of 31.0 to 31.9 in adult 03/29/2024 Depressive disorder 01/14/2024 Gastroparesis 01/14/2024 B12 deficiency 03/20/2020 Left elbow pain 04/12/2019 Patellofemoral arthritis of left knee 01/01/2019 Overview (01/14/2024): MRI 12/2018 Mitral insufficiency 11/05/2018 Overview (01/14/2024): Mild on echocardiogram 10/2018. Audible faint systolic murmur Other complications of other bariatric procedure 10/28/2018 Chronic cluster headache, not intractable 2018 Low back pain without sciatica 05/15/2017 Acne vulgaris 07/28/2016 Overview (01/14/2024): Retin-A Fibromyalgia 02/19/2016 Prediabetes 10/18/2015 Insomnia 06/01/2015 Asthma 04/05/2015 Assessment & Plan (05/26/2024 1:14 PM EDT): Patient appears to be suffering from an asthma exacerbation, She has decreased breath sounds and reports shortness of breath along with persistent cough and chest tightness. Patient report that she is allergic to albuterol and prednisone. For this reason again I recommend patient go to the emergency room for further treatment and evaluation. Patient went to [facility] via ambulance. I did send a pulmonary referral as patient need to be followed due our allergy to prednisone and albuterol, which is ideal outpatient treatment for asthma exacerbation. Orders: Ambulatory referral to Pulmonology; Future [id number], RSV, Influenza A and B qualitative RT-PCR; Future Plantar fasciitis 12/06/2013 Vitamin D insufficiency 11/22/2012 OCD (obsessive compulsive disorder) 11/25/2011 Chronic diarrhea 05/12/2011 Syncope 05/01/2011 Macromastia 02/19/2010 Resolved Problems Problem Noted Date Diagnosed Date Resolved Date Food intolerance 03/29/2024 05/04/2024 Nausea and vomiting 01/14/2024 05/04/19 25 Encounters Date Type Department Care Team Description 07/29/2024 11:30 AM EDT Office Visit Bariatric Surgery - [address] [phone] Shell Herring MD S/P bariatric surgery (Primary Dx); Overweight 06/29/2024 3:15 PM EDT Office Visit Bariatric Surgery [address] [phone] Shell Herring MD S/P bariatric surgery (Primary Dx); Other fatigue; Obesity, Class I, BMI 30-34.9; Vitamin deficiency 06/28/2024 1:00 PM EDT Office Visit [facility] Hematology Oncology [address] [place] [address] Mami Sneed PA Anemia, unspecified type (Primary Dx); S/P gastric bypass; Fibromyalgia 06/01/2024 9:30 AM EDT Telemedicine Bariatric Surgery - [address] [phone] Wandy Cheek, ROBERT Class 1 obesity without serious comorbidity with body mass index (BMI) of 31.0 to 31.9 in adult, unspecified obesity type (Primary Dx) 05/26/2024 10:12 AM EDT - 05/26/2024 4:06 PM EDT Emergency [facility] Emergency [address] [place] [phone] Caitlyn Rivera, Bronchitis (Primary Dx) Discharge Disposition: Home or Self Care 05/26/2024 8:45 AM EDT Office Visit Adult Medicine [address] [phone] Deja Corona, OFFICE RUNNER Viral infection (Primary Dx); Moderate persistent asthma with acute exacerbation; Iron deficiency; Gastric bypass status for obesity; Encounter for person awaiting admission to [facility] 05/23/2024 Telephone Bariatric Surgery - [address] [phone] Shell Herring MD 05/18/2024 9:30 AM EST Office Visit Bariatric Surgery - [place] [address] [place] [address] Shell Herring MD S/P bariatric surgery (Primary Dx); Obesity, Class I, BMI 30-34.9; Vitamin deficiency from Last 3 Months Surgical History Surgery Date Site/Laterality Comments COLONOSCOPY 05/20/2007 PROCEDURE: HISTORICAL COLONOSCOPY; COMMENT: Mild descending colon erythema consistent with resolving infectious colitis. Otherwise normal colon to the terminal ileum. OTHER SURGICAL HISTORY PROCEDURE: GA ARTHRODESIS ANTERIOR SPINAL DFRM 4-7 VRT SGM TONSILLECTOMY PROCEDURE: HISTORICAL TONSILLECTOMY ADENOIDECTOMY PROCEDURE: HISTORICAL ADENOIDECTOMY WISDOM TOOTH EXTRACTION PROCEDURE: HISTORICAL WISDOM TEETH EXTRACTION BACK SURGERY PROCEDURE: HISTORICAL BACK SURGERY; COMMENT: lipoma removal back and neck OTHER SURGICAL HISTORY 2011 PROCEDURE: HISTORICAL TOTAL HYSTERECTOMY W/O BSO LAPAROSCOPY DIAGNOSTIC / BIO PSY / ASPIRATION / LYSIS PROCEDURE: PELVIS LAPAROSCOPY, DIAGNOSTIC BREAST REDUCTION 2010 Bilateral PROCEDURE: GA BREAST REDUCTION COLONOSCOPY 10/16/2015 PROCEDURE: HISTORICAL COLONOSCOPY; COMMENT: Visually normal colon and terminal ileum. BREAST BIOPSY Left PROCEDURE: BX BREAST; PERC NEEDLE CORE W/IMAG GUID; COMMENT: b9 cyst COLONOSCOPY 05/12/2011 PROCEDURE: HISTORICAL COLONOSCOPY; COMMENT: normal colon and terminal ileum with normal random biopsies. UPPER GASTROINTESTINAL ENDOSCOPY 05/12/2011 PROCEDURE: GA UPPER GI ENDOSCOPY PERFORMED; COMMENT: normal with normal duodenal biopsies. UPPER GASTROINTESTINAL ENDOSCOPY 05/19/2007 PROCEDURE: GA UPPER GI ENDOSCOPY PERFORMED; COMMENT: Normal to the 2nd part of the duodenum; no bx ESOPHAGOGASTRODUODENOSCOPY 12/12/2020 PROCEDURE: GA EGD TRANSORAL BIOPSY SINGLE/MULTIPLE; COMMENT: consistent with gastric sleeve BARIATRIC SURGERY CERVICAL FUSION HYSTERECTOMY Medical History Medical History Date Comments Plantar fasciitis 12/06/2013 DX:Plantar fas ciitis Morbid obesity (CMS/[facility] V24, CMS/HCC V28) 03/24/2013 DX:Morbid obesity (HCC); COM MENT: BMI 41.87 on 03/15/13. Vitamin D insufficiency 11/22/2012 DX:Vitam in D insufficiency OCD (obsessive compulsive disorder) 11/25/2011 DX:OCD (obsessive compulsive disorder) Chronic diarrhea 05/12/2011 DX:Chronic diar josemanuel Syncope 05/01/2011 DX:Syncope Iron deficiency anemia due t o chronic blood loss 01/07/2011 DX:Iron deficiency anemia du e to chronic blood loss HTN (hypertension) 02/19/2010 DX:HTN (hyper tension) Macromastia 02/19/2010 DX:Macromastia Mild intermittent asthma 12/18/2014 DX:Mild intermittent asthma History of colonoscopy 10/16/2015 DX:Histor y of colonoscopy; COMMENT: Excellent bowel prep 10/16/2015 with clear liquid diet and extra strength Senokot pills, 4 pills twice in split dose fashion. Low back pain without sciatica 05/15/2017 D X:Low back pain without sciatica Morbid obesity with BMI of 4 0.0-44.9, adult ([facility] V24, [facility] V28) 09/24/2017 DX:Morbid obesity wit h BMI of 40.0-44.9, adult ([facility]); COMMENT: 08/06/2017 Pt ready for lap sleeve gastrectomy. Nausea and vomiting DX:Nausea an d vomiting History of gastric surgery DX:Hi story of gastric surgery Depressive disorder DX:Depressiv e disorder Gastroparesis DX:Gastroparesis Nausea and vomiting DX:Nausea an d vomiting Constipation DX:Constipation Gastroesophageal reflux disease 03/29/2024 Anxiety Family History Medical History Relation Name Comments Other: pancreatic cancer Father Heart attack Grandparent grandfather Colon cancer Paternal Grandfather Melanoma Paternal Grandfather Melanoma Paternal Grandmother Ovarian cancer Sister Breast cancer Neg Hx Cancer of Small Bowel Neg Hx Kidney cancer Neg Hx Uterine cancer Neg Hx Relation Name Status Comments Father Alive Grandparent Paternal Grandfather Paternal Grandmother Sister Social History Tobacco Use Types Packs/Day Years Used Date Smoking Tobacco: Never Smokeless Tobacco: Never Alcohol Use Standard Drinks/Week Comments No 0 (1 standard drink = 0.6 oz pur e alcohol) Interpersonal Safety Answer Date Record ed Physical Abuse 05/03/2024 Verbal Abuse 05/03/2024 Comments No Sex and Gender Information Value Date Recorded Sex Assigned at Female 04/28/2024 9:33 AM EST Legal Sex Female 12:22 AM EST Gender Identity Female 04/28/2024 9:33 AM EST Sexual Orientation Straight 04/28/2024 9: 33 AM EST Obstetrics History Last Filed Vital Signs Vital Sign Reading Time Taken Comments Blood Pressure 102/71 07/29/2024 11:29 AM EDT Pulse 72 07/29/2024 11:29 AM EDT Temperature 36.3 ??C (97.4 ??F) 07/29/2024 11:29 AM E DT Respiratory Rate 18 05/26/2024 2:31 PM EDT Oxygen Saturation 98% 06/28/2024 1:12 PM EDT Inhaled Oxygen Concentration - - Weight 72.6 kg (160 lb) 07/29/2024 11:29 AM EDT Height 157.5 cm (5' 2 ) 07/29/2024 11:29 AM EDT Body Mass Index 29.26 07/29/2024 11:29 AM EDT Plan of Treatment Upcoming Encounters Date Type Department Care Team (Late st Contact Info) Description 09/02/2024 11:15 AM EDT Office Visit Adult Medicine [facility] [address] [place] [phone] Aicha Taylor MD [address] [place] [phone] 09/29/2024 1:30 PM EDT Office Visit [facility] Hematology Oncology [address] [place] [phone] Mami Sneed PA [address] [place] [address] 10/28/2024 11:45 AM EDT Office Visit Bariatric Surgery [facility] [address] [phone] Shell Herring MD [address] [phone] Health Maintenance Due Date Last Done Comments Pneumococcal Vaccine: 50+ Years (2 of 2 - PCV) 04/09/2017 04/09/2016 Pneumococcal Vaccine: Pediatrics (0 to 5 Years) and At-Risk Patients (6 to 64 Years) (2 of 2 - PCV) 04/09/2017 04/09/2016 Colorectal Cancer Screening: Colonoscopy 02/22/2022 Depression Screening 02/22/2022 HIV Screening 02/22/2022 Hepatitis C Screening 02/22/2022 Social Influencers of Health Screening 02/22/2022 DTaP,Tdap,and Td Vaccines (3 - Td or Tdap) 03/15/2022 03/15/2012, 01/24/2002 Zoster Vaccines (1 of 2) 2022 COVID-19 Vaccine (1 - season) 2023 Breast Cancer Screening 01/15/2024 01/15/20, 01/08/2021, 07/07/2018, Additional history exists Influenza Vaccine (Season Ended) 2024 Cholesterol Screening (Lipid Panel) 09/22/2028 09/23/2023 MMR Vaccines Aged Out 01/24/2002 No longer eligi ble based on patient's age to complete this topic Hepatitis B Vaccines Completed 10/10/2013, 05/17/2013, 04/11/2013 HIB Vaccines Aged Out No longer eligi ble based on patient's age to complete this topic HPV Vaccines Aged Out No longer eligi ble based on patient's age to complete this topic Hepatitis A Vaccines Aged Out No long er eligible based on patient's age to complete this topic IPV Vaccines Aged Out No longer eligi ble based on patient's age to complete this topic Meningococcal ACWY Vaccine Aged Out N o longer eligible based on patient's age to complete this topic Meningococcal B Vaccine Aged Out No l onger eligible based on patient's age to complete this topic RSV Immunization Patients Under 20 months Aged Out No longer eligible based on patient's age to complete this topic Varicella Vaccines Aged Out No longer eligible based on patient's age to complete this topic Procedures Procedure Name Priority Date/Time Associated Diagnosis Comments CBC WITH AUTO DIFFERENTIAL Routine 07/29/2024 11:03 AM EDT S/P bariatric surgery CBC AND DIFFERENTIAL Routine 07/29/2024 11:03 AM EDT S/P bariatric surgery ZINC Routine 07/29/2024 11:03 AM EDT S/P bariatric surgery VITAMIN D 25 HYDROXY Routine 07/29/2024 11:03 AM EDT S/P bariatric surgery VITAMIN B6 Routine 07/29/2024 11:03 AM EDT S/P bariatric surgery VITAMIN B12 Routine 07/29/2024 11:03 AM EDT S/P bariatric surgery VITAMIN A Routine 07/29/2024 11:03 AM EDT S/P bariatric surgery SELENIUM SERUM Routine 07/29/2024 11:03 AM EDT S/P bariatric surgery IRON AND TIBC Routine 07/29/2024 11:03 AM EDT S/P bariatric surgery FOLATE Routine 07/29/2024 11:03 AM EDT S/P bariatric surgery COPPER, SERUM Routine 07/29/2024 11:03 AM EDT S/P bariatric surgery COMPREHENSIVE METABOLIC PANEL Routine 07/29/2024 11:03 AM EDT S/P bariatric surgery THYROID STIMULATING HORMONE WITH REFLEX TO FREE T4 AND FREE T3 Routine 07/29/2024 11:03 AM EDT S/P bariatric surgery Other fatigue CBC WITH AUTO DIFFERENTIAL Routine 06/28/2024 1:53 PM EDT S/P gastric bypass Iron deficiency THYROID STIMULATING HORMONE WITH REFLEX TO FREE T4 AND FREE T3 Routine 06/28/2024 1:53 PM EDT S/P gastric bypass Iron deficiency FOLATE Routine 06/28/2024 1:53 PM EDT S/P gastric bypass Iron deficiency IRON AND TIBC Routine 06/28/2024 1:53 PM EDT S/P gastric bypass Iron deficiency FERRITIN Routine 06/28/2024 1:53 PM EDT S/P gastric bypass Iron deficiency CBC AND DIFFERENTIAL Routine 06/28/2024 1:53 PM EDT S/P gastric bypass Iron deficiency XR CHEST 2 VIEWS STAT 05/26/2024 12:3 5 PM EDT [id number], RSV, FLU A AND B QUALITATIVE RT-PCR, INTERNAL LAB STAT 05/26/2024 12:13 PM EDT [id number], RSV, FLU A AND B QUALITATIVE RT-PCR, LOCAL REFERENCE LAB Routine 05/26/2024 11:42 AM EDT Viral infection Moderate persistent asthma with acute exacerbation CBC WITH AUTO DIFFERENTIAL STAT 05/26/2024 11:31 AM EDT COMPREHENSIVE METABOLIC PANEL STAT 05/26/2024 11:31 AM EDT CBC AND DIFFERENTIAL STAT 05/26/2024 11:31 AM EDT VITAMIN B12 Routine 05/18/2024 11:00 AM EST S/P bariatric surgery VITAMIN B6 Routine 05/18/2024 11:00 AM EST S/P bariatric surgery IRON AND TIBC Routine 05/18/2024 11:00 AM EST S/P bariatric surgery SCREENING MAMMOGRAPHY BI 2-VIEW BREAST INC CAD Routine 01/14/2022 6:35 PM EDT Encounter for screening mammogram for malignant neoplasm of breast from Last 3 Months or Most Recently Relevant to Health Maintenance Results * Thyroid stimulating hormone with reflex to free t4 and free t3 (07/29/2024 11:03 AM EDT) Only the most recent of2 resultswithin the time period is included. TSH 1.41 0.40 - 4.00 mcIU/mL LAB CHEMISTRY METHOD 07/29/2024 4:21 PM EDT [facility] Blood Venous blood specimen / Unknown Venipuncture / Unknown 07/29/2024 11:03 AM EDT 07/29/2024 11:03 AM EDT us Shell Herring MD LAB BLOOD ORDERABLES Fi nal Result [facility] [address] [place] [address], [place] [phone] * (ABNORMAL) CBC auto differential (07/29/2024 11:03 AM EDT) Only the most recent of3 resultswithin the time period is included. [facility] WBC 5.2 4.8 - 10.8 K/mcL LAB HEMETOLOGY METHOD 07/29/2024 2:21 PM EDT [facility] RBC 4.20 3.80 - 4.80 M/mcL LAB HEMETOLOGY METHOD 07/29/2024 2:21 PM EDT [facility] Hemoglobin 12.6 11.5 - 16.0 g/dL LAB HEMETOLOGY METHOD 07/29/2024 2:21 PM EDT [facility] Hematocrit 38.9 35.0 - 47.0 % LAB HEMETOLOGY METHOD 07/29/2024 2:21 PM EDT [facility] MCV 92.0 79.0 - 98.0 FL LAB HEMETOLOGY METHOD 07/29/2024 2:21 PM EDT [facility] MCH 29.8 27.0 - 32.0 pcg LAB HEMETOLOGY METHOD 07/29/2024 2:21 PM EDT [facility] MCHC 32.4 32.0 - 37.0 g/dL LAB HEMETOLOGY METHOD 07/29/2024 2:21 PM EDT [facility] RDW 15.1(H) 11.0 - 15.0 % LAB HEMETOLOGY METHOD 07/29/2024 2:21 PM EDT [facility] Platelets 214 130 - 400 K/mcL LAB HEMETOLOGY METHOD 07/29/2024 2:21 PM [facility] MPV 11.4(H) 7.0 - 11.0 FL LAB HEMETOLOGY METHOD 07/29/2024 2:21 PM [facility] NRBC 0.0 <1.0 % LAB HEMETOLOGY METHOD 07/29/2024 2:21 PM [facility] NRBC Absolute 0.00 <0.10 K/mcL LAB HEMETOLOGY METHOD 07/29/2024 2:21 PM [facility] Neutrophils Relative 62.8 % LAB HEMETOLOGY METHOD 07/29/2024 2:21 PM [facility] Lymphocytes Relative 25.4 % LAB HEMETOLOGY METHOD 07/29/2024 2:21 PM [facility] Monocytes Relative 6.4 % LAB HEMETOLOGY METHOD 07/29/2024 2:21 PM [facility] Eosinophils Relative 4.6 % LAB HEMETOLOGY METHOD 07/29/2024 2:21 PM [facility] Basophils Relative 0.4 % LAB HEMETOLOGY METHOD 07/29/2024 2:21 PM [facility] Immature Granulocytes Relative 0.4 % LAB HEMETOLOGY METHOD 07/29/2024 2:21 PM [facility] Neutrophils Absolute 3.26 1.50 - 7.00 K/mcL LAB HEMETOLOGY METHOD 07/29/2024 2:21 PM [facility] Lymphocytes Absolute 1.32 1.00 - 5.00 K/mcL LAB HEMETOLOGY METHOD 07/29/2024 2:21 PM [facility] Monocytes Absolute 0.33 0.20 - 1.00 K/mcL LAB HEMETOLOGY METHOD 07/29/2024 2:21 PM [facility] Eosinophils Absolute 0.24 0.00 - 0.50 K/mcL LAB HEMETOLOGY METHOD 07/29/2024 2:21 PM EDT [facility] Basophils Absolute 0.02 0.00 - 0.20 K/[facility] LAB HEMETOLOGY METHOD 07/29/2024 2:21 PM EDT [facility] Immature Granulocytes Absolute 0.02 0.00 - 0.03 K/[facility] LAB HEMETOLOGY METHOD 07/29/2024 2:21 PM EDT [facility] Blood Venous blood specimen / Unknown Venipuncture / Unknown 07/29/2024 11:03 AM EDT 07/29/2024 11:03 AM EDT us Shell Herring MD LAB BLOOD ORDERABLES Fi nal Result Performing Organization Address [facility]/ZIP Co de Phone Number [facility] [address] [place] [address], [place] [phone] * Iron and TIBC (07/29/2024 11:03 AM EDT) Only the most recent of3 resultswithin the time period is included. Iron 103 40 - 150 mcg/dL LAB CHEMISTRY METHOD 07/29/2024 3:30 PM EDT [facility] TIBC 304 250 - 450 mcg/dL LAB CHEMISTRY METHOD 07/29/2024 3:30 PM EDT [facility] Iron Saturation 34 15 - 50 % LAB CHEMISTRY METHOD 07/29/2024 3:30 PM EDT [facility] Blood Venous blood specimen / Unknown Venipuncture / Unknown 07/29/2024 11:03 AM EDT 07/29/2024 11:03 AM EDT us Shell Herring MD LAB BLOOD ORDERABLES Fi nal Result Performing Organization Address [facility]/ZIP Co de Phone Number [facility] [address] [place] [address], [place] [phone] * Copper, serum (07/29/2024 11:03 AM EDT) Copper 1054 810 - 1990 ug/L 08/03/2024 12:39 PM EDT [facility] Comment: Copper values may be elevated to twice the normal levels in . Elevated results may be due to sample collected in a non-certified trace element-free tube. This test was developed and the performance characteristics determined by [facility]. It has not been cleared or approved by the FDA. The laboratory is regulated under CLIA as qualified to perform high-complexity testing. This test is used for patient testing purposes. It should not be regarded as investigational or for research. Test performed at [facility], [address] [place], [place] ??[address] ? [phone] Virgen Rasmussen MD, PhD - [employer] Blood Venous blood specimen / Unknown Venipuncture / Unknown 07/29/2024 11:03 AM EDT 07/29/2024 11:03 AM EDT Shell Herring MD LAB BLOOD ORDERABLES Fi nal Result [facility] [address] [place] [address] * Zinc (07/29/2024 11:03 AM EDT) Zinc 75 60 - 130 ug/dL 08/01/2024 2:58 PM EDT [facility] Comment: Elevated results may be due to sample collected in a non-certified trace element-free tube. This test was developed and the performance characteristics determined by [facility]. It has not been cleared or approved by the FDA. The laboratory is regulated under CLIA as qualified to perform high-complexity testing. This test is used for patient testing purposes. It should not be regarded as investigational or for research. Test performed at [facility], [address], [place] ??[address] ? [phone] Virgen Rasmussen MD, PhD - Sheet Heater Helper Blood Venous blood specimen / Unknown Venipuncture / Unknown 07/29/2024 11:03 AM EDT 07/29/2024 11:03 AM EDT us Shell Herring MD LAB BLOOD ORDERABLES Fi nal Result Performing Organization Address [facility] Co de Phone Number [facility] [address] [place] [address] * Vitamin A (07/29/2024 11:03 AM EDT) Vitamin A 40 38 - 106 ug/dL 08/03/2024 6:04 AM EDT [facility] Comment: This test was developed and the performance characteristics determined by [facility]. It has not been cleared or approved by the FDA. The laboratory is regulated under CLIA as qualified to perform high-complexity testing. This test is used for patient testing purposes. It should not be regarded as investigational or for research. Test performed at [facility], [address], [place] ??[address] ? [phone] Virgen Rasmussen MD, PhD - Sheet Heater Helper Blood Venous blood specimen / Unknown Venipuncture / Unknown 07/29/2024 11:03 AM EDT 07/29/2024 11:03 AM EDT us Shell Herring MD LAB BLOOD ORDERABLES Fi nal Result Performing Organization Address [facility] Co de Phone Number [facility] [address] [place] [address] * Selenium serum (07/29/2024 11:03 AM EDT) Selenium 119 63 - 160 mcg/L 08/03/2024 3:59 AM EDT [facility] Comment: This test was developed and its analytical performance characteristics have been determined by [facility] [place], [place]. It has not been cleared or approved by the U.S. Food and Drug Administration. This assay has been validated pursuant to the CLIA regulations and is used for clinical purposes. Test Performed by [facility], [facility], [address] [place], [place] Jono Willis M.D., Ph.D., Director of Laboratories , CLIA [id number] Blood Venous blood specimen / Unknown Venipuncture / Unknown 07/29/2024 11:03 AM EDT 07/29/2024 11:03 AM EDT Shell Herring MD LAB BLOOD ORDERABLES Fi nal Result [facility] [address] [place] [address] * Vitamin D 25 hydroxy (07/29/2024 11:03 AM EDT) Vit D, 25-Hydroxy 36.7 30.0 - 80.0 ng/mL LAB CHEMISTRY METHOD 07/29/2024 4:21 PM EDT [facility] Blood Venous blood specimen / Unknown Venipuncture / Unknown 07/29/2024 11:03 AM EDT 07/29/2024 11:03 AM EDT Shell Herring MD LAB BLOOD ORDERABLES Fi nal Result Performing Organization Address City/[facility]/ZIP Co de Phone Number [facility] [address] [place] [address], * (ABNORMAL) Vitamin B6 (07/29/2024 11:03 AM EDT) Only the most recent of2 resultswithin the time period is included. Vitamin B6 (Pyridoxine) Level 79(H) 5 - 50 ug/L 08/02/2024 1:15 PM EDT [facility] Comment: This test was developed and the performance characteristics determined by [facility]. It has not been cleared or approved by the FDA. The laboratory is regulated under CLIA as qualified to perform high-complexity testing. This test is used for patient testing purposes. It should not be regarded as investigational or for research. Test performed at [facility], [address], [place], [place] ??[address] ? [phone] Virgen Rasmussen MD, PhD - Sheet Heater Helper Blood Venous blood specimen / Unknown Venipuncture / Unknown 07/29/2024 11:03 AM EDT 07/29/2024 11:03 AM EDT us Shell Herring MD LAB BLOOD ORDERABLES Fi nal Result [facility] [address] [place] [address] * Folate (07/29/2024 11:03 AM EDT) Only the most recent of2 resultswithin the time period is included. Folate 9.1 2.8 - 17.0 ng/ml LAB CHEMISTRY METHOD 07/29/2024 3:30 PM EDT [facility] Blood Venous blood specimen / Unknown Venipuncture / Unknown 07/29/2024 11:03 AM EDT 07/29/2024 11:03 AM EDT us Shell Herring MD LAB BLOOD ORDERABLES Fi nal Result [facility] [address] [place] [address], * Vitamin B12 (07/29/2024 11:03 AM EDT) Only the most recent of2 resultswithin the time period is included. Vitamin B-12 726 250 - 900 pcg/mL LAB CHEMISTRY METHOD 07/29/2024 3:30 PM EDT [facility] Blood Venous blood specimen / Unknown Venipuncture / Unknown 07/29/2024 11:03 AM EDT 07/29/2024 11:03 AM EDT us Shell Herring MD LAB BLOOD ORDERABLES Fi nal Result [facility] [address] [place] [address], * (ABNORMAL) Comprehensive metabolic panel (07/29/2024 11:03 AM EDT) Only the most recent of2 resultswithin the time period is included. Sodium 142 133 - 145 mmol/L LAB CHEMISTRY METHOD 07/29/2024 3:30 PM EDT [facility] Potassium 4.2 3.5 - 5.5 mmol/L LAB CHEMISTRY METHOD 07/29/2024 3:30 PM EDT [facility] Chloride 112(H) 96 - 110 mmol/L LAB CHEMISTRY METHOD 07/29/2024 3:30 PM T [facility] CO2 25 21 - 32 mmol/L LAB CHEMISTRY METHOD 07/29/2024 3:30 PM [facility] Anion Gap 5 3 - 11 LAB CHEMISTRY METHOD 07/29/2024 3:30 PM [facility] Glucose 119(H) 70 - 100 mg/dL LAB CHEMISTRY METHOD 07/29/2024 3:30 PM [facility] BUN 16 5 - 25 mg/dL LAB CHEMISTRY METHOD 07/29/2024 3:30 PM [facility] Creatinine 0.87 0.50 - 1.10 mg/dL LAB CHEMISTRY METHOD 07/29/2024 3:30 PM [facility] eGFR 81 >=60 mL/min/1. 73m2 LAB CHEMISTRY METHOD 07/29/2024 3:30 PM [facility] Comment:Calculation based on the Chronic Kidney Disease Epidemiology Collaboration (CKD-EPI) equation refit without adjustment for race. BUN/Creatinine Ratio 18.4 LAB CHEMISTRY METHOD 07/29/2024 3:30 PM EDT [facility] Calcium 8.7 8.5 - 10.5 mg/dL LAB CHEMISTRY METHOD 07/29/2024 3:30 PM [facility] AST (SGOT) 19 10 - 42 unit/L LAB CHEMISTRY METHOD 07/29/2024 3:30 PM [facility] ALT (SGPT) 31 10 - 60 unit/L LAB CHEMISTRY METHOD [facility] Alkaline Phosphatase 79 42 - 121 unit/L LAB CHEMISTRY METHOD 07/29/2024 3:30 PM [facility] Total Protein 6.2 6.0 - 8.0 g/dL LAB CHEMISTRY METHOD 07/29/2024 3:30 PM [facility] Albumin 3.4 3.2 - 5.0 g/dL LAB CHEMISTRY METHOD 07/29/2024 3:30 PM [facility] Total Bilirubin 0.5 0.0 - 1.4 mg/dL LAB CHEMISTRY METHOD 07/29/2024 3:30 PM [facility] Blood Venous blood specimen / Unknown Venipuncture / Unknown 07/29/2024 11:03 AM EDT 07/29/2024 11:03 AM EDT us Shell Herring MD LAB BLOOD ORDERABLES Fi nal Result [facility] [address] [place] [address], * Ferritin (06/28/2024 1:53 PM EDT) [facility] Ferritin 53 8 - 252 ng/mL LAB CHEMISTRY METHOD 06/28/2024 6:17 PM EDT [facility] Blood Venous blood specimen / Unknown Venipuncture / Unknown 06/28/2024 1:53 PM EDT 06/28/2024 4:30 PM EDT us Mami CALDWELL LAB BLOOD ORDERABLES Final Re sult [facility] [address] [place] [address], [place] [phone] * XR Chest 2 Views (05/26/2024 12:35 PM EDT) Anatomical Region Laterality Modality Body Radiographic Kayy ging 05/26/2024 12:4 7 PM EDT Impressions 05/26/2024 12:48 PM EDT FINDINGS/IMPRESSION: Normal heart size and pulmonary vascularity. ??Lungs are clear and costophrenic angles are sharp. ??No acute osseous abnormality. ??Cervical fusion hardware -------- FINAL REPORT -------- Dictated By: Jerardo Farfan Dictated Date: 05/26/2024 12:47 ET Assigned Physician: Jerardo Farfan Reviewed and Electronically Signed By: Jerardo Farfan Signed Date: 05/26/2024 12:48 ET Workstation ID: [id number] Transcribed By: Self Edit Transcribed Date: 05/26/2024 12:47 ET Narrative 05/26/2024 12:48 PM EDT XR CHEST 2 VIEWS INDICATION: cough TECHNIQUE: XR CHEST 2 VIEWS COMPARISON: No priors available. Procedure Note Jerardo Farfan MD - 05/26/2024 XR CHEST 2 VIEWS INDICATION: cough TECHNIQUE: XR CHEST 2 VIEWS COMPARISON: No priors available. IMPRESSION: FINDINGS/IMPRESSION: Normal heart size and pulmonary vascularity. Lungsare clear and costophrenic angles are sharp. No acute osseousabnormality. Cervical fusion hardware -------- FINAL REPORT -------- Dictated By: Jerardo Farfan Dictated Date: 05/26/2024 12:47 ET Assigned Physician: Jerardo Farfan Reviewed and Electronically Signed By: Jerardo Farfan Signed Date: 05/26/2024 12:48 ET Workstation ID: [id number] Transcribed By: Self Edit Transcribed Date: 05/26/2024 12:47 ET us Caitlyn Rivera DO IMG XR PROCEDURES Final R esult * [id number], RSV, Influenza A and B qualitative RT-PCR (05/26/2024 12:13 PM EDT) Influenza A PCR Not Detected Not Detected LAB MICROBIOLOGY METHOD 05/26/2024 1:38 PM EDT [facility] Influenza B PCR Not Detected Not Detected LAB MICROBIOLOGY METHOD 05/26/2024 1:38 PM EDT [facility] RSV PCR Not Detected Not Detected LAB MICROBIOLOGY METHOD 05/26/2024 1:38 PM EDT [facility] SARS COV-2 Not Detected Not Detected LAB MICROBIOLOGY METHOD 05/26/2024 1:38 PM EDT [facility] Swab Nasopharyngeal structure / Unknown Non-blood Collection / Unknown 05/26/2024 12:13 PM EDT 05/26/2024 12:44 PM EDT Narrative [facility] - 05/26/2024 1:38 PM EDT Disclaimer: ??Testing was performed using the [employer] GeneXpert Xpress SARS-CoV-2 _Flu_RSV PLUS PCR assay. ??The manner in which this information is used to guide patient care is the responsibility of the healthcare provider. ??Results should be correlated with the clinical history, epidemiological data, and other data available to the clinician evaluating the patient. ??Negative results do not preclude infection. ??This test has been authorized by the FDA under an Emergency Use Authorization (EUA). ??This test is only authorized for the duration of time the declaration that circumstances exist justifying the authorization of the emergency use of in vitro diagnostic tests for detection of SARS-CoV-2 virus and/or diagnosis of COVID-19 infection under section 564 (b) (1) of the Act, 21 U.S.C 360bbb-3 (b) (1), unless the authorization is terminated or revoked sooner. ?? Reference Range: Not Detected Fact sheet for Healthcare providers can be found at https://www.fda.gov/media/584309/download. ?? Fact sheet for Healthcare patients can be found at https://www.fda.gov/media/887886/download. Caitlyn Rivera DO LAB MICROBIOLOGY - GENERA L ORDERABLES Final Result [facility] [address] [place] [address], * [id number], RSV, Influenza A and B qualitative RT-PCR (05/26/2024 11:42 AM EDT) Pathologist [facility] SARS COV-2 Not Detected Not Detected LAB MOLECULAR DIAGNOSTICS METHOD 05/26/2024 11:36 PM EDT [facility] Comment: Disclaimer: The manner in which this information is used to guide patient care is the responsibility of the healthcare provider. Testing was performed using the [employer] m SARS-CoV-2 test. This test has been authorized by FDA under an Emergency Use Authorization (EUA). This test is only authorized for the duration of time the declaration that circumstances exist justifying the authorization of the emergency use of in vitro diagnostic tests for detection of SARS-CoV-2 virus and/or diagnosis of COVID-19 infection under section 564(b)(1) of the Act, 21 U.S.C. 360bbb- 3(b)(1), unless the authorization is terminated or revoked sooner. Fact sheet for Healthcare Providers can be found at: https://www.fda.gov/media/369482/download Fact sheet for Patients can be found at: https://www.fda.gov/media/558680/download Influenza A PCR Not Detected Not Detected LAB MOLECULAR DIAGNOSTICS METHOD 05/26/2024 11:36 PM EDT [facility] Influenza B PCR Not Detected Not Detected LAB MOLECULAR DIAGNOSTICS METHOD 05/26/2024 11:36 PM EDT [facility] RSV PCR Not Detected Not Detected LAB MOLECULAR DIAGNOSTICS METHOD 05/26/2024 11:36 PM EDT [facility] Swab Nasopharyngeal structure / Unknown Non-blood Collection / Unknown 05/26/2024 11:42 AM EDT 05/26/2024 11:43 AM EDT Deja Corona OFFICE RUNNER LAB MICROBIOLOGY - GENERAL O RDERABLES Final Result [facility] [address] [place] [address], * SCREENING MAMMOGRAPHY BI 2-VIEW BREAST INC CAD (01/14/2022 6:35 PM EDT) Anatomical Region Laterality Modality Radiographic Kayy ging 01/08/2021 6:53 PM EDT Narrative 01/15/2022 8:42 AM EDT This is a summary report. The complete report is available in the patient's medical record. If you cannot access the medical record, please contact the sending organization for a detailed fax or copy. Full field digital screening 2D and 3D mammography, reviewed with CAD and compared to previous mammograms dating back to 07/03/2017 most recent of 01/08/2021. ??The breasts are composed of fatty and fibroglandular tissue. ??No suspicious mass, architectural distortion or suspicious calcifications are identified. IMPRESSION: : No mammographic evidence of malignancy. BIRADS 1-Negative; N. 5 year breast cancer risk assessment 0.9 % Lifetime breast cancer risk assessment 8.9 % Breast cancer risk category Low (<15%) Procedure Note Mitzi Blunt MD - 04/20/2023 This is a summary report. The complete report is available in thepatient's medical record. If you cannot access the medical record, pleasecontact the sending organization for a detailed fax or copy. Full field digital screening 2D and 3D mammography, reviewed with CAD andcompared to previous mammograms dating back to 07/03/2017 most recent of01/08/2021. The breasts are composed of fatty and fibroglandular tissue.No suspicious mass, architectural distortion or suspicious calcificationsare identified. IMPRESSION: : No mammographic evidence of malignancy. BIRADS 1-Negative; N. 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 Do not modify or discontinue any currently active code status orders. * Full Code - Default Date Activated Date Inactivated Comments 05/03/2024 12:02 PM 05/03/2024 5:05 PM This is ord er is used when code status has not been discussed with the patient, or code status is otherwise unknown/unconfirmed To update the patient's code status, place a code status order. Do not modify or discontinue any currently active code status orders. Healthcare Agents on File Name Relationship Healthcare Agent [facility] Communication Al [facility] Health Care Agent Care Teams Budget Engineer Relationship Specialty Start Date End Date Aicha Taylor MD [address] [place] [id number] PCP - General Internal Medicine 03/14/24
[2024-08-15 09:21] VITALS: BP 118/80; PULSE 58; TEMP 36.4; O2SAT 98
== END 2024-08-15 10:50 | disposition home or self-care (01) ==
PROVIDERS: PCP Internal Medicine; Visit Provider Physician Assistant Medical
DX: J98.8 Other specified respiratory disorders (principal); J02.9 Acute pharyngitis, unspecified

== ENCOUNTER 2024-08-15 08:50 | Outpatient (REF) | payer BC, MEDICAID, SELFPAY ==
--- NOTE | ~2024-08-15 | XR_ITS ---
EXAMINATION: XR CHEST 2 VIEWS HISTORY: R05.9 - Cough, unspecified COMPARISON: There are no prior studies available for comparison. FINDINGS: PA and lateral views of the chest are submitted. The lungs are expanded and clear. There is no pleural effusion, pneumothorax, or pulmonary vascular congestion. The heart is normal in size. The bones are intact. A portion of the fusion plate is seen in the lower cervical spine. There are surgical clips in the upper abdomen. XR/XR chest 2V IMPRESSION: Clear lungs. Electronically signed by: Zi Mae MD 08/15/2024 11:02 AM EDT
== END 2024-08-15 08:51 | disposition home or self-care (01) ==
LOC: HO.HMGCX 08:50
PROVIDERS: PCP Internal Medicine; Visit Provider Physician Assistant Medical
DX: R05.9 Cough, unspecified (principal); Z13.9 Encounter for screening, unspecified
CPT/HCPCS: 71046; 87880

== ENCOUNTER → 2024-08-15 10:00 | Outpatient (BNV) | payer BC, MEDICAID, SELFPAY | PROVIDERS: PCP Internal Medicine; Visit Provider Radiology Diagnostic Radiology | DX: R05.9 Cough, unspecified (principal) | CPT/HCPCS: 71046 ==

== ENCOUNTER 2025-02-08 11:22 | Outpatient (REF) | payer BC, MEDICAID, SELFPAY ==
--- NOTE | 2025-02-08 11:27 | EMG_ITS ---
Chief complaint: Left ulnar nerve decompression/transposition in 2019. Patient reports left elbow pain has returned with numbness on left 4th and 5th digits. Reason for referral: Evaluate for ulnar neuropathy Referred by: Dr. Ellison Procedure done: Left upper extremity NCS/EMG Precautions and/or limitations: Previous cervical fusion surgery 20 years ago. Previous EMG not available for my review. The limb temperature was monitored continuously and remained between 32-36 degrees C during the performance of the NCS. Ulnar motor NCS was performed with moderate elbow flexion between 70-90 degrees, with across-elbow distance of 10 cm. Nerve Conduction Studies Anti Sensory Summary Table ?Stim Site NR Onset (ms) Norm Onset (ms) Peak (ms) Norm Peak (ms) O-P Amp (?V) Norm O-P Amp Site1 Site2 Delta-0 (ms) Dist (cm) Filiberto (m/s) Norm Filiberto (m/s) Left Median Anti Sensory (2nd Digit) Wrist ? 2.7 3.6 <3.6 28.4 >10 Wrist 2nd Digit 2.7 14.0 52 Left Radial Anti Sensory (Thumb) Forearm ? 1.8 2.3 <3.1 29.4 Forearm Thumb 1.8 0.0 Left Ulnar Anti Sensory (5th Digit) Wrist ? 2.5 3.3 <3.7 19.7 >15.0 Wrist 5th Digit 2.5 14.0 56 Motor Summary Table ?Stim Site NR Onset (ms) Norm Onset (ms) O-P Amp (mV) Norm O-P Amp iAmp (mV) Amp (1st) (%) Site1 Site2 Delta-0 (ms) Dist (cm) Filiberto (m/s) Norm Filiberto (m/s) Left Median Motor (Abd Poll Brev) Wrist ? 3.3 <3.9 9.6 >4.5 10.8 100.0 Elbow Wrist 3.4 19.0 56 >45 Elbow ? 6.7 6.9 8.1 71.9 Left Ulnar Motor (Abd Dig Minimi) Wrist ? 2.7 <3.0 9.3 >5 12.3 100.0 B Elbow Wrist 3.2 15.5 48 >45 B Elbow ? 5.9 8.4 10.5 90.3 A Elbow B Elbow 1.8 10.0 56 >45 A Elbow ? 7.7 7.2 9.2 77.4 EMG ?Side Muscle Nerve Root Ins Act Fibs Psw Amp Dur Poly Recrt Int Pat Comment Left 1stDorInt Ulnar C8-T1 Nml Nml Nml Nml Nml 0 Nml Complete Left FlexCarpiUln Ulnar C8,T1 Nml Nml Nml Nml Nml 0 Nml Complete Left Biceps Musculocut C5-6 Nml Nml Nml Nml Nml 0 Nml Complete Left Triceps Radial C6-7-8 Nml Nml Nml Nml Nml 0 Nml Complete Left Deltoid Axillary C5-6 Nml Nml Nml Nml Nml 0 Nml Complete FINDINGS: All motor and sensory nerves tested showed normal latencies, amplitudes and conduction velocities. Concentric needle EMG was performed in selected muscles of the left upper extremity. Study did not reveal signs of electric abnormalities as shown in the table above. IMPRESSION: 1. This is a normal study. 2. There is no electrodiagnostic evidence for median neuropathy, ulnar neuropathy, brachial plexopathy, or cervical radiculopathy. Thank you for your kind referral. Eli Lucia MD, LOVE Board Certified, [place] [employer] and Rehabilitation (ABPMR) Board Certified, [place] Board of Electrodiagnostic Medicine (ABEM) CODIN 80063 1 extremity MTDD
--- OUTSIDE RECORDS SUMMARY | 2025-02-08 14:15 | XMS_ITS | Clinical Summary ---
Author Organization [facility] Address [address] [place] [address] Care Team Providers Care Straightedge Man Name Role Phone Khushboo Dougherty MD Primary Care Provider [phone] Allergies Active Allergy Reactions Criticality Noted Date Comments Albuterol 12/06/2018 Bupivacaine 05/10/2013 Cortisone Anaphylaxis High 05/11/2013 Egg-Derived Products 12/06/2018 Gadolinium 04/21/2013 Pt stated she had itching/hives with MRI done at [facility] Iohexol 05/10/2013 Ketorolac Itching 04/03/2015 Latex 01/28/2010 hives Methocarbamol 11/05/2012 Methylprednisolone 05/10/2013 Other Nausea And Vomiting 04/29/2011 Peg [id number]-Nacl-Nasulf Nausea And Vomiting 04/29/2011 Prednisone 01/28/2010 Throat closes / hives Salicylic Acid 12/06/2018 Isai's Wort ([place] Perforatum) 12/06/2018 Medications Medication Sig Dispensed Refills Start Date End Date Status promethazine (PHENERGAN) tablet 25 mg Take 25 mg by mouth. 0 11/25/2018 Active SUMAtriptan (IMITREX) 50 MG tablet Take 1-2 tabs at onset of headache. May repeat dose once after 2 hours, if needed. No more than 4 tabs daily 0 11/25/2018 Active lidocaine (LIDODERM) 5 % Place 1 patch onto the skin. 0 11/25/2018 Active cetirizine (ZyrTEC) 10 MG tablet Take 10 mg by mouth. 0 11/09/2018 Active zolpidem (AMBIEN) 10 MG tablet Take 10 mg by mouth. 0 11/08/2018 Active citalopram (CeleXA) 20 MG tablet Take 20 mg by mouth. 0 10/20/2018 Active Diclofenac Sodium 1 % GEL topical APPLY GEL TOPICALLY TO AFFECTED JOINTS 3 TIMES DAILY IF NEEDED 0 10/20/2018 Active sennosides-docusate sodium (SENOKOT-S) 8.6-50 MG tablet Take 1 tablet by mouth. 0 09/30/2018 Active topiramate (TOPAMAX) 50 MG tablet TAKE 1 TABLET BY MOUTH EVERY DAY 0 09/20/2018 Active pregabalin (LYRICA) capsule 150 mg Take 150 mg by mouth. 0 07/23/2018 Active tretinoin (RETIN-A) 0.025 % cream Apply a pea sized amount topically every night to the skin where acne lesions appear, using enough to lighly cover the entire affected area 0 07/23/2018 Active ondansetron (ZOFRAN) 4 MG tablet Take 4 mg by mouth. 0 06/23/2018 Acti ve cyanocobalamin (VITAMIN B12) 1000 MCG/ML injection Inject 1,000 mcg into the muscle. 0 06/23/2018 Active loratadine (CLARITIN) 10 MG tablet Take 10 mg by mouth. 0 01/26/2017 Active metaxalone (SKELAXIN) 800 MG tablet TAKE 1 TABLET BY MOUTH TWICE DAILY NEEDED FOR MUSCLE SPASMS 0 03/23/2018 Active baclofen (LIORESAL) 10 MG tablet Take 10 mg by mouth. 0 01/28/2018 Active oxyCODONE-acetaminoph en (PERCOCET) 5-325 MG per tablet Take 1 tablet by mouth. 0 03/25/2019 Active Active Problems No known active problems Family History Medical History Relation Name Comments Cancer Father Heart disease Father Hyperlipidemia Father Hypertension Father Relation Name Status Comments Father Social History Tobacco Use Types Packs/Day Years Used Date Smoking Tobacco: Never Assessed Smokeless Tobacco: Never Alcohol Use Standard Drinks/Week Comments No 0 (1 standard drink = 0.6 oz pur e alcohol) Sex and Gender Information Value Date Recorded Sex Assigned at Not on file Gender Identity Not on file Sexual Orientation Not on file Job Start Date Occupation Industry Not on file Not on file Not on file Last Filed Vital Signs Vital Sign Reading Time Taken Comments Blood Pressure - - Pulse - - Temperature - - Respiratory Rate - - Oxygen Saturation - - Inhaled Oxygen Concentration - - Weight 64 kg (141 lb) 04/11/2019 11:15 AM EST Height 157.5 cm (5' 2 ) 04/11/2019 11:15 AM EST Body Mass Index 25.79 04/11/2019 11:15 AM EST Plan of Treatment Health Maintenance Due Date Last Done Comments Hepatitis B Vaccines (1 of 3 - 3-dose series) 1972 Hepatitis C Screening 1972 COVID-19 Vaccine (#1) 05/19/1973 Depression Screening 1984 BMI Counseling 1990 Preventative Health Evaluation 1990 Cervical Cancer Screening (P ap Smear) 1993 Colon Cancer Screening (Colonoscopy) 2017 DTap / Tdap / Td (2 - Td or Tdap) 03/15/2022 012 Breast Cancer Screening (Mammogram) 2022 Shingrix-Zoster Vaccine (1 of 2) 2022 Influenza Vaccine (#1) 2024 Pneumococcal Vaccine Aged Out 04/09/2016 No long er eligible based on patient's age to complete this topic RSV Ped < 20 months Aged Out No longe r eligible based on patient's age to complete this topic Care Teams Straightedge Man Relationship Specialty Start Date End Date Khushboo Dougherty MD PCP - General Internal Medicine 12/06/18
--- OUTSIDE RECORDS SUMMARY | 2025-02-08 14:15 | XMS_ITS | Clinical Summary ---
Author Organization [facility] Address [address] [place] [address] Phone Care Team Providers Care Lead Electrical Engineer Name Role Phone Aicha Taylor MD Primary Care Prov ider Allergies Active Allergy Reactions Criticality Noted Date Comments Albuterol Cough,Itching,Whee zing High 03/21/2015 Relieved w/Benadryl 50mg PO Bupivacaine 05/10/2013 Unsure of reaction to bupivicaine- tolerates lidocaine and novocaine [place] Itching 05/03/2024 Fluticasone Propionate Anaphylaxis High 08/21/2011 Gadolinium-Containing Contrast Media 04/21/2013 Pt stated she had itching/hives with MRI done at [facility] Iodinated Contrast Media Nausea And Vomiting 04/29/2011 Iohexol 05/10/2013 Latex 01/28/2010 hives Methocarbamol 11/05/2012 Methylprednisolone 05/10/2013 Montelukast 05/24/2015 Had visual hallucination Other Nausea And Vomiting 04/29/2011 Peg 3350-Electrolytes Nausea And Vomiting 04/29/2011 Prednisone 01/28/2010 Throat closes / hives Salicylic Acid 11/12/2017 Shellfish Derived 11/13/2010 Solu-Medrol W/Diluent 05/26/2024 [place] Wort Other High 12/26/2010 suicidal anaphylaxis Medications baclofen (LIORESAL) 10 mg tablet Take 1 tablet (10 mg total) by mouth. 01/29/20 18 Active buPROPion XL (WELLBUTRIN XL) 150 mg 24 hr tablet Take 1 tablet (150 mg total) by mouth 1 (one) time each day in the morning. 06/10/19 24 Active diclofenac (VOLTAREN) 1 % topical gel [...] mg total) by mouth. 01/27/20 17 Active sennosides 8.6 mg capsule Take 8.6 mg by mouth. 06/15/19 24 Active zolpidem (AMBIEN) 10 mg tablet 1 tablet (10 mg total) at bedtime as needed. 11/09/19 19 Active SUMAtriptan (IMITREX) 50 mg tablet TAKE 1 TO 2 TABLETS BY MOUTH AT ONSET OF HEADACHE. MAY REPEAT DOSE 1 TIME AFTER 2 HOURS, NEEDED. NO MORE THAN 4 TABLET DAILY 20 tablet 1 02/17/20 24 Active pyridoxine (B-6) 250 mg tablet Take 1 tablet (250 mg total) by mouth 1 (one) time each day. 30 tablet 2 04/05/19 25 026 Active pregabalin (LYRICA) 300 mg capsule Take 1 capsule (300 mg total) by mouth 2 (two) times a day. Active risperiDONE (RisperDAL) 0.5 mg tablet Take 1 tablet (0.5 mg total) by mouth 1 (one) time each day. Active ascorbic acid (Vitamin C) 250 mg tablet Take 1 tablet (250 mg total) by mouth 1 (one) time each day. 30 each 11 09/03/19 25 026 Active senna-docusate (Stimulant Laxative Plus) 8.6-50 mg per tablet TAKE 2 TABLETS BY MOUTH DAILY 60 tablet 1 11/23/19 25 Active citalopram (CeleXA) 20 mg tablet Take 1 tablet (20 mg total) by mouth 1 (one) time each day in the morning. 11/29/19 25 Active folic acid (FOLVITE) 1 mg tablet Take 1 tablet (1,000 mcg total) by mouth 1 (one) time each day. 90 tablet 12/31/19 25 Active cetirizine (ZyrTEC) 10 mg tablet TAKE 1 TABLET BY MOUTH DAILY 90 tablet 1 01/20/20 25 Active topiramate (TOPAMAX) 50 mg tablet Take 1 tablet (50 mg total) by mouth 2 (two) times a day. 180 each 1 02/01/20 25 Active cholecalcifero l (VITAMIN D-3) 50 mcg (2,000 unit) capsule Take 1 capsule (2,000 Units total) by mouth 1 (one) time each day. 90 capsule 1 02/01/20 Active ferrous sulfate, dried (Slow Release Iron) 160 mg (50 mg iron) tablet extended release Take 1 tablet by mouth 1 (one) time each day. 90 tablet 2 02/01/20 25 Active tretinoin (RETIN-A) 0.025 % cream Apply topically at bedtime. 45 g 1 02/01/20 25 Active cyanocobalamin (VITAMIN B-12) 1,000 mcg/mL injection Inject 1 mL (1,000 mcg total) into the shoulder, thigh, or buttocks every 30 (thirty) days. 3 mL 1 02/01/20 25 026 Active syringe with needle (Syringe 3cc/20Gx1 ) 3 mL 20 gauge x 1 syringe 1 Units every 28 (twenty-eight ) days. 12 each 3 02/01/20 25 026 Active cholecalcifero l (VITAMIN D-3) 50 mcg (2,000 unit) capsule Take 1 capsule (2,000 Units total) by mouth 1 (one) time each day. 11/12/19 24 025 Discontinued(Re order) cyanocobalamin (VITAMIN B-12) 1,000 mcg/mL injection Inject 1 mL (1,000 mcg total) into the shoulder, thigh, or buttocks. 06/24/19 19 025 Discontinued(Th erapy completed) metaxalone (SKELAXIN) 800 mg tablet Take 1 tablet (800 mg total) by mouth 2 (two) times a day if needed. 03/23/19 025 Discontinued(Th erapy completed) topiramate (TOPAMAX) 50 mg tablet Take 1 tablet (50 mg total) by mouth 2 (two) times a day. 09/21/19 025 Discontinued(Re order) tretinoin (RETIN-A) 0.025 % cream APPLY A PEA SIZED AMOUNT TOPICALLY EVERY NIGHT ON THE ACNE LESIONS. LIGHTLY COVER THE ENTIRE AFFECTED AREA 07/24/19 025 Discontinued(Re order) FLUoxetine (PROzac) 40 mg capsule Take 2 capsules (80 mg total) by mouth 1 (one) time each day. Discontinued( erapy completed) cetirizine (ZyrTEC) 10 mg tablet TAKE 1 TABLET BY MOUTH DAILY 90 tablet 1 07/30/19 025 Discontinued ferrous sulfate, dried (Slow Release Iron) 160 mg (50 mg iron) tablet extended release TAKE 1 TABLET BY MOUTH ONCE DAILY 30 tablet 08/10/19 Discontinued(Re order) Active Problems Problem Noted Date Diagnosed Date Abnormal brain MRI 01/03/2025 Overview (01/03/2025): Results for orders placed during the hospital encounter of 12/13/24 MR Lumbar Spine wo Contrast Narrative EXAM: Lumbar spine MRI HISTORY: Severe low back pain radiating into legs. COMPARISON: 12/03/2020 CORRELATION: Lumbar spine radiography 07/10/2022 TECHNIQUE: Exam performed on a 1.5 Hailey high-field MRI scanner. Multiplanar imaging performed without contrast. FINDINGS: Conus medullaris terminates at L1 which is within normal limits. No abnormal cord signal detected. Vertebral body heights are maintained. Multiple areas of T1 hyperintense signal in the vertebral bodies which could be due to focal fat and/or hemangiomas as seen previously. L1-L2: No significant disc bulging or evidence of a disc protrusion or extrusion. No significant neural foraminal narrowing or spinal canal stenosis. L2-L3: No significant disc bulging or evidence of a disc protrusion or extrusion. No significant neural foraminal narrowing or spinal canal analysis. L3-L4: Progressive disc desiccation and new very mild loss of disc height. Mild disc bulging eccentric to the left as before. Minimal left neural foraminal narrowing. No significant right neural foraminal narrowing or spinal canal stenosis. L4-L5: Progressive disc desiccation. Very mild loss of disc height. Minimal disc bulging slightly more prominent on the left. Annular tear again noted in the left posterolateral disc. Mild facet arthropathy. No significant neural foraminal narrowing or spinal canal stenosis. L5-S1: Stable tiny central disc protrusion. Mild bilateral facet arthropathy. No significant neural foraminal narrowing or spinal canal stenosis. Impression Mild degenerative changes with minimally progressive disc disease. No evidence of nerve root impingement or high-grade spinal canal stenosis. -------- FINAL REPORT -------- Dictated By: Arti Mooney Dictated Date: 12/15/2024 12:59 ET Assigned Physician: Arti Mooney Reviewed and Electronically Signed By: Arti Mooney Signed Date: 12/19/2024 08:20 ET Workstation ID: [id number] Transcribed By: Self Edit Transcribed Date: 12/15/2024 13:50 ET Gastric bypass status for obesity 05/03/2024 Assessment [...] 31.9 in adult 03/29/2024 Depressive disorder 01/14/2024 Assessment & Plan (01/31/2025 12:00 PM EST): She follows regularly with behavioral health for depression. Symptoms are well-controlled. She is currently on bupropion, Celexa, risperidone, zolpidem. Encouraged to keep the appointments with the specialist, taking medications as prescribed. Gastroparesis 01/14/2024 B12 deficiency 03/20/2020 Assessment & Plan (01/31/2025 12:00 PM EST): History of vitamin B12 deficiency, she has been taking oral supplements every day, however her B12 levels have been trending down. Last was 336. Recommended to restart injections every month. A prescription was sent today. Orders: Vitamin B12; Future Left elbow pain 04/12/2019 Patellofemoral arthritis of left knee 01/01/2019 Overview (01/14/2024): MRI 12/2018 Mitral insufficiency 11/05/2018 Overview (01/14/2024): Mild on echocardiogram 10/2018. Audible faint systolic murmur Other complications of other bariatric procedure 10/28/2018 Chronic cluster headache, not intractable 2018 Low back pain without sciatica 05/15/2017 Acne vulgaris 07/28/2016 Overview (01/14/2024): Retin-A Fibromyalgia 02/19/2016 Assessment & Plan (09/03/2024 8:09 PM EDT): Currently on Lyrica. She also follows with psychiatry for depression. On bupropion, fluoxetine, risperidone, and Zolpidem. Prediabetes 10/18/2015 Insomnia 06/01/2015 Asthma 04/05/2015 Assessment [...] further treatment and evaluation. Patient went to [facility] via ambulance. I did send a pulmonary referral as patient need to be followed due our allergy to prednisone and albuterol, which is ideal outpatient treatment for asthma exacerbation. Orders: Ambulatory referral to Pulmonology; Future [id number], RSV, Influenza A and B qualitative RT-PCR; Future Plantar fasciitis 12/06/2013 Vitamin D insufficiency 11/22/2012 OCD (obsessive compulsive disorder) 11/25/2011 Chronic diarrhea 05/12/2011 Syncope 05/01/2011 Macromastia 02/19/2010 Resolved Problems Problem Noted Date Diagnosed Date Resolved Date Food intolerance 03/29/2024 05/04/2024 Nausea and vomiting 01/14/2024 05/04/19 25 Encounters Date Type Department Care Team Description 02/01/2025 Telephone Adult Medicine [address] [phone] Aicha Lerner MD 01/31/2025 11:00 AM EST Office Visit Adult Medicine [address] [phone] Aicha Lerner MD Other migraine without status migrainosus, not intractable (Primary Dx); Recurrent major depressive disorder, in full remission (CMS/[facility] V24); B12 deficiency; Need for tetanus, diphtheria, and acellular pertussis (Tdap) vaccine 01/31/2025 Telephone Orthopedic Surgery [facility] [address] [facility] [address] [place] [phone] Raheem Jacobs [place] 01/30/2025 7:45 AM EST Lab Draw Station - [address] Prediabetes; S/P bariatric surgery; Postural dizziness with presyncope 01/16/2025 10:30 AM EST Office Visit Orthopedic [facility] [address] [facility] [address] [place] [phone] Charu Ellison MD Left elbow pain (Primary Dx); Cubital tunnel syndrome on left 12/30/2024 9:30 AM EDT - 12/30/2024 11:59 PM EDT Hospital Encounter Radiology Department - [address] [phone] Encounter for screening mammogram for malignant neoplasm of breast Discharge Disposition: Home or Self Care 12/30/2024 8:43 AM EDT - 12/30/2024 11:59 PM EDT Hospital Encounter Radiology Department - [address] [phone] Postural dizziness with presyncope Discharge Disposition: Home or Self Care 12/26/2024 Results Follow-Up Adult Medicine [address] [phone] Alyce Nolen PA 12/22/2024 12:41 PM EDT - 12/22/2024 11:59 PM EDT Hospital Encounter Radiology Department - [address] [phone] Postural dizziness with presyncope Discharge Disposition: Home or Self Care 12/21/2024 10:30 AM EDT Office Visit Adult Medicine [address] [phone] Alyce Nolen PA Postural dizziness with presyncope (Primary Dx); Prediabetes; S/P bariatric surgery; Encounter for screening mammogram for malignant neoplasm of breast 12/13/2024 6:51 PM EDT - 12/13/2024 11:59 PM EDT Hospital Encounter Radiology Department - [address] [phone] Radiculopathy, lumbar region; Spinal stenosis, lumbar region with neurogenic claudication Discharge Disposition: Home or Self Care 12/09/2024 10:29 AM EDT - 12/09/2024 11:59 PM EDT Hospital Encounter [address] [phone] Pain in left elbow; Medial epicondylitis, left elbow Discharge Disposition: Home or Self Care from Last 3 Months Immunizations Immunization Administration Dates Next Due Hepatitis B ([id number]-Mnntk , Recombivax HB-Adult) 19yo and older 10/10/2013,05/17/2013,04/11/2013 MMR, measles mumps and rubel la Live (Priorix; M-M-R II) 12mo and older 01/24/2002 Pneumococcal polysaccharide 23 valent (Pneumovax 23) 2yo and older 04/09/2016 Td Tetanus diptheria (Tdvax) 7yo and older 01/24 Tdap Tetanus diptheria acell ular pertussis (Boostrix; Adacel) 7yo and older 01/31/2025,03/15/2012 Surgical History Surgery Date Site/Laterality Comments COLONOSCOPY [...] fasciitis 12/06/2013 DX:Plantar fas ciitis Morbid obesity ([facility] V24, [facility] V28) 03/24/2013 DX:Morbid obesity ([facility]); COM MENT: BMI 41.87 on 03/15/13. Vitamin [...] obesity with BMI of 4 0.0-44.9, adult ([facility] V24, [facility] V28) 09/24/2017 DX:Morbid obesity wit h BMI of 40.0-44.9, adult ([facility]); COMMENT: 08/06/2017 Pt ready for lap sleeve [...] Date Smoking Tobacco: Never Smokeless Tobacco: Never Tobacco Cessation:Counseling Given: Not Answered Alcohol Use Standard Drinks/Week Comments No 0 (1 standard drink = 0.6 oz pur e alcohol) Housing Instability Answer Date Recorde d Are you worried that in the next 2 months you may not have stable housing? Patient declined 09/01/2024 Food Access & Nutrition Answer Date Rec orded Do you have access to a vari ety of food including fruits and vegetables? Yes 09/01/2024 Health Literacy Answer Date Recorded How often do you need to hav e someone help you when you read instructions, pamphlets, or other written material from your doctor or pharmacy? Rarely 09/01/2024 Caregiver: How often do you need to have someone help you when you read instructions, pamphlets, or other written material from your doctor or pharmacy? Not on file 09/01/2024 Financial Risk Answer Date Recorded How hard is it for you to pa y for the very basics like food, housing, medical care, and air conditioning / heating? Not very hard 09/01/2024 Transportation Answer Date Recorded Has the lack of transportati on kept you from meetings, work, or from getting things needed for daily living? Patient declined 09/01/2024 Has the lack of transportati on kept you from medical appointments or from getting medications? Patient declined 09/01/2024 Social Isolation Answer Date Recorded How often do you feel lonely or isolated from th ose around you? Often 09/01/2024 Food Risk Answer Date Recorded Within the past 12 months we worried whether our food would run out before we got money to buy more. Never true 09/01/2024 Within the past 12 months th e food we bought just didn't last and we didn't have money to get more. Never true 09/01/2024 Dependent Care Answer Date Recorded Do you need help finding or paying for care for your loved ones. For example, infant childcare provider or elderly care for an older adult? Patient declined 09/01/2024 Education Answer Date Recorded Do you think completing more education or training, like finishing a GED, going to college, or learning a trade, would be helpful for you? No 09/01/2024 Employment and Income Answer Date Recor ded During the last four weeks, have you been actively looking for work? Patient declined 09/01/2024 Living Situation Answer Date Recorded What is your living situation? Unrecognized valu e 09/01/2024 Interpersonal Safety Answer Date Record ed Physical Abuse Unrecognized value 05/03/2024 Verbal Abuse Unrecognized value 05/03/2024 Comments No Sex and Gender Information Value Date Recorded Sex Assigned at Female 04/28/2024 9:33 AM EST Legal Sex Female 12:22 AM EST Gender Identity Female 04/28/2024 9:33 AM EST Sexual Orientation Straight 04/28/2024 9: 33 AM EST Obstetrics History Para Term AB IAB SAB Ectopic Multiple Livin g Live Births 1 1 1 1 Date Outcome GA Total Labor Labor/2nd/3rd Weight Sex Type Anes PTL Mikaela A1 A5 Name Clin Term Last Filed Vital Signs Vital Sign Reading Time Taken Comments Blood Pressure 96/67 01/31/2025 11:06 AM EST Pulse 59 01/31/2025 11:06 AM EST Temperature 36 C (96.8 F) 01/31/2025 11:06 AM EST Respiratory Rate 14 01/31/2025 11:0 6 AM EST Oxygen Saturation 99% 01/31/2025 11: 06 AM EST Inhaled Oxygen Concentration - - Weight 71.6 kg (157 lb 12.8 oz) 025 11:06 AM EST Height 157.5 cm (5' 2 ) 01/31/2025 11:0 6 AM EST Body Mass Index 28.86 01/31/2025 11:06 AM EST Plan of Treatment Upcoming Encounters Date Type Department Care Team (Late st Contact Info) Description 04/28/2025 7:00 AM EST Ancillary Procedure [facility] - [address] [place] [phone] 06/02/2025 7:30 AM EDT Office Visit Adult Medicine [address] [phone] Aicha Taylor MD [address] [place] [address] Health Maintenance Due Date Last Done Comments Colorectal Cancer Screening: Colonoscopy 1970 Pneumococcal Vaccine: 50+ Years (2 of 2 - PCV) 04/09/2017 04/09/2016 HIV Screening 02/22/2022 Hepatitis C Screening 02/22/2022 RSV Immunization Adult Patients (1 - Risk 50-74 years 1-dose series) 2022 Zoster Vaccines (1 of 2) 2022 Social Influencers of Health Screening 09/01/2025 09/01/2024 Influenza Vaccine (#1) 2025 Postp oned from 11/14/2024 (Patient Refused) Breast Cancer Screening 12/30/2025 12/31/19, 01/14/2022, 01/08/2021, Additional history exists Cholesterol Screening (Lipid Panel) 11/29/2029 11/29/2024, 09/23/2023 DTaP,Tdap,and Td Vaccines (4 - Td or Tdap) 01/31/2035 01/31/2025, 03/15/2012, 01/24/2002 MMR Vaccines Aged Out 01/24/2002 No longer eligi ble based on patient's age to complete this topic Hepatitis B Vaccines Completed 10/10/2013, 05/17/2013, 04/11/2013 Depression Screening Completed 09/01/2024 COVID-19 Vaccine Discontinued HIB Vaccines Aged Out No longer eligi [...] Diagnosis Comments CBC WITH AUTO DIFFERENTIAL Routine 01/30/2025 7:48 AM EST S/P bariatric surgery FOLATE Routine 01/30/2025 7:48 AM EST S/P bariatric surgery IRON AND TIBC Routine 01/30/2025 7:48 AM EST S/P bariatric surgery THYROID STIMULATING HORMONE WITH REFLEX TO FREE T4 AND FREE T3 Routine 01/30/2025 7:48 AM EST Postural dizziness with presyncope VITAMIN B12 Routine 01/30/2025 7:48 AM EST S/P bariatric surgery VITAMIN D 25 HYDROXY Routine 01/30/2025 7:48 AM EST S/P bariatric surgery FERRITIN Routine 01/30/2025 7:48 AM EST S/P bariatric surgery COMPREHENSIVE METABOLIC PANEL Routine 01/30/2025 7:48 AM EST S/P bariatric surgery CBC AND DIFFERENTIAL Routine 01/30/2025 7:48 AM EST S/P bariatric surgery HEMOGLOBIN A1C Routine 01/30/2025 7:48 AM EST Prediabetes MG MAMMO DIGITAL SCREENING W BURTON BILAT Routine 12/30/2024 9:40 AM EDT Encounter for screening mammogram for malignant neoplasm of breast MR BRAIN WO CONTRAST Routine 12/30/2024 9:30 AM EDT Postural dizziness with presyncope VAS US DUPLEX CAROTID BILATERAL Routine 12/22/2024 12:56 PM EDT Postural dizziness with presyncope MR LUMBAR SPINE WO CONTRAST Routine 12/13/2024 7:21 PM EDT Radiculopathy, lumbar region Spinal stenosis, lumbar region with neurogenic claudication XR ELBOW 3+ VIEWS LEFT Routine 12/09/2024 10:49 AM EDT Pain in left elbow Medial epicondylitis, left elbow LIPID PANEL WITH REFLEX TO DIRECT LDL Routine 11/29/2024 8:13 AM EDT Encounter for lipid screening for cardiovascular disease from Last 3 Months Results * Thyroid stimulating hormone with reflex to free t4 and free t3 (01/30/2025 7:48 AM EST) TSH 3.17 0.40 - 4.00 mcIU/mL LAB CHEMISTRY METHOD 01/30/2025 12:51 PM EST [facility] Blood Venous blood specimen / Unknown Venipuncture / Unknown 01/30/2025 7:48 AM EST 01/30/2025 7:48 AM EST us Alyce CALDWELL LAB BLOOD ORDERABLES Final Resu lt [facility] [address] [place] [address], [place] [phone] * CBC auto differential (01/30/2025 7:48 AM EST) WBC 6.2 4.8 - 10.8 K/[facility] LAB HEMETOLOGY METHOD 01/30/2025 10:54 AM [facility] RBC 4.30 3.80 - 4.80 M/[facility] LAB HEMETOLOGY METHOD 01/30/2025 10:54 AM [facility] Hemoglobin 13.3 11.5 - 16.0 g/dL LAB HEMETOLOGY METHOD 01/30/2025 10:54 AM [facility] Hematocrit 40.3 35.0 - 47.0 % LAB HEMETOLOGY METHOD 01/30/2025 10:54 AM [facility] MCV 92.9 79.0 - 98.0 FL LAB HEMETOLOGY METHOD 01/30/2025 10:54 AM [facility] MCH 30.6 27.0 - 32.0 pcg LAB HEMETOLOGY METHOD 01/30/2025 10:54 AM [facility] MCHC 33.0 32.0 - 37.0 g/dL LAB HEMETOLOGY METHOD 01/30/2025 10:54 AM [facility] RDW 13.3 11.0 - 15.0 % LAB HEMETOLOGY METHOD 01/30/2025 10:54 AM [facility] Platelets 193 130 - 400 K/[facility] LAB HEMETOLOGY METHOD 01/30/2025 10:54 AM [facility] MPV 11.0 7.0 - 11.0 FL LAB HEMETOLOGY METHOD 01/30/2025 10:54 AM [facility] NRBC 0.0 <1.0 % LAB HEMETOLOGY METHOD 01/30/2025 10:54 AM [facility] NRBC Absolute 0.00 <0.10 K/[facility] LAB HEMETOLOGY METHOD 01/30/2025 10:54 AM [facility] Neutrophils Relative 49.6 % LAB HEMETOLOGY METHOD 01/30/2025 10:54 AM [facility] Lymphocytes Relative 40.1 % LAB HEMETOLOGY METHOD 01/30/2025 10:54 AM [facility] Monocytes Relative 6.7 % LAB HEMETOLOGY METHOD 01/30/2025 10:54 AM [facility] Eosinophils Relative 3.1 % LAB HEMETOLOGY METHOD 01/30/2025 10:54 AM [facility] Basophils Relative 0.3 % LAB HEMETOLOGY METHOD 01/30/2025 10:54 AM [facility] Immature Granulocytes Relative 0.2 % LAB HEMETOLOGY METHOD 01/30/2025 10:54 AM [facility] Neutrophils Absolute 3.06 1.50 - 7.00 K/mcL LAB HEMETOLOGY METHOD 01/30/2025 10:54 AM [facility] Lymphocytes Absolute 2.47 1.00 - 5.00 K/mcL LAB HEMETOLOGY METHOD 01/30/2025 10:54 AM [facility] Monocytes Absolute 0.41 0.20 - 1.00 K/mcL LAB HEMETOLOGY METHOD 01/30/2025 10:54 AM [facility] Eosinophils Absolute 0.19 0.00 - 0.50 K/mcL LAB HEMETOLOGY METHOD 01/30/2025 10:54 AM [facility] Basophils Absolute 0.02 0.00 - 0.20 K/mcL LAB HEMETOLOGY METHOD 01/30/2025 10:54 AM [facility] Immature Granulocytes Absolute 0.01 0.00 - 0.03 K/mcL LAB HEMETOLOGY METHOD 01/30/2025 10:54 AM [facility] Blood Venous blood specimen / Unknown Venipuncture / Unknown 01/30/2025 7:48 AM EST 01/30/2025 7:48 AM EST Alyce CALDWELL LAB BLOOD ORDERABLES Final Resu lt [facility] [address] [place] [address], [place] [phone] * Iron and TIBC (01/30/2025 7:48 AM EST) Pathologist [facility] Iron 103 40 - 150 mcg/dL LAB CHEMISTRY METHOD 01/30/2025 11:51 AM EST [facility] TIBC 293 250 - 450 mcg/dL LAB CHEMISTRY METHOD 01/30/2025 11:51 AM EST [facility] Iron Saturation 35 15 - 50 % LAB CHEMISTRY METHOD 01/30/2025 11:51 AM EST [facility] Blood Venous blood specimen / Unknown Venipuncture / Unknown 01/30/2025 7:48 AM EST 01/30/2025 7:48 AM EST Alyce CALDWELL LAB BLOOD ORDERABLES Final Resu lt Performing Organization Address City/[facility]/ZIP Co de Phone Number [facility] [address] [place] [address], [place] [phone] * Vitamin D 25 hydroxy (01/30/2025 7:48 AM EST) Vit D, 25-Hydroxy 33.8 30.0 - 80.0 ng/mL LAB CHEMISTRY METHOD 01/30/2025 12:51 PM EST [facility] Blood Venous blood specimen / Unknown Venipuncture / Unknown 01/30/2025 7:48 AM EST 01/30/2025 7:48 AM EST Alyce CALDWELL LAB BLOOD ORDERABLES Final Resu lt [facility] [address] [place] [address], [place] [phone] * Hemoglobin A1c (01/30/2025 7:48 AM EST) Pathologist [facility] Hemoglobin A1C 5.1 <6.5 % LAB CHEMISTRY METHOD 01/30/2025 12:01 PM EST [facility] Mean Bld Glu Estim. 100 mg/dL LAB CHEMISTRY METHOD 01/30/2025 12:01 PM EST [facility] Blood Venous blood specimen / Unknown Venipuncture / Unknown 01/30/2025 7:48 AM EST 01/30/2025 7:48 AM EST Alyce CALDWELL LAB BLOOD ORDERABLES Final Resu lt [facility] [address] [place] [address], [place] [phone] * (ABNORMAL) Folate (01/30/2025 7:48 AM EST) [facility] Folate >20.0(H) 2.8 - 17.0 ng/ml LAB CHEMISTRY METHOD 01/30/2025 11:51 AM EST [facility] Blood Venous blood specimen / Unknown Venipuncture / Unknown 01/30/2025 7:48 AM EST 01/30/2025 7:48 AM EST Alyce CALDWELL LAB BLOOD ORDERABLES Final Resu lt [facility] [address] [place] [address], [place] [phone] * Ferritin (01/30/2025 7:48 AM EST) [facility] Ferritin 57 8 - 252 ng/mL LAB CHEMISTRY METHOD 01/30/2025 11:51 AM EST [facility] Blood Venous blood specimen / Unknown Venipuncture / Unknown 01/30/2025 7:48 AM EST 01/30/2025 7:48 AM EST Alyce CALDWELL LAB BLOOD ORDERABLES Final Resu lt [facility] [address] [place] [address], [place] [phone] * Vitamin B12 (01/30/2025 7:48 AM EST) [facility] Vitamin B-12 336 250 - 900 pcg/mL LAB CHEMISTRY METHOD 01/30/2025 11:51 AM EST [facility] Blood Venous blood specimen / Unknown Venipuncture / Unknown 01/30/2025 7:48 AM EST 01/30/2025 7:48 AM EST Alyce CALDWELL LAB BLOOD ORDERABLES Final Resu lt Performing Organization Address City/[facility]/ZIP Co de Phone Number [facility] [address] [place] [address], [place] [phone] * (ABNORMAL) Comprehensive metabolic panel (01/30/2025 7:48 AM EST) [facility] Sodium 143 133 - 145 mmol/L LAB CHEMISTRY METHOD 01/30/2025 11:51 AM [facility] Potassium 4.2 3.5 - 5.5 mmol/L LAB CHEMISTRY METHOD 01/30/2025 11:51 AM [facility] Chloride 111(H) 96 - 110 mmol/L LAB CHEMISTRY METHOD 01/30/2025 11:51 AM [facility] CO2 27 21 - 32 mmol/L LAB CHEMISTRY METHOD 01/30/2025 11:51 AM [facility] Anion Gap 5 3 - 11 LAB CHEMISTRY METHOD 01/30/2025 11:51 AM [facility] Glucose 99 70 - 100 mg/dL LAB CHEMISTRY METHOD 01/30/2025 11:51 AM [facility] BUN 16 5 - 25 mg/dL LAB CHEMISTRY METHOD 01/30/2025 11:51 AM [facility] Creatinine 0.92 0.50 - 1.10 mg/dL LAB CHEMISTRY METHOD 01/30/2025 11:51 AM [facility] eGFR 75 >=60 mL/min/1. 73m2 LAB CHEMISTRY METHOD 01/30/2025 11:51 AM [facility] Comment:Calculation based on the Chronic Kidney Disease Epidemiology Collaboration (CKD-EPI) equation refit without adjustment for race. BUN/Creatinine Ratio 17.4 LAB CHEMISTRY METHOD 01/30/2025 11:51 AM [facility] Calcium 8.8 8.5 - 10.5 mg/dL LAB CHEMISTRY METHOD 01/30/2025 11:51 AM [facility] AST (SGOT) 9(L) 10 - 42 unit/L LAB CHEMISTRY METHOD 01/30/2025 11:51 AM [facility] ALT (SGPT) 14 10 - 60 unit/L LAB CHEMISTRY METHOD 01/30/2025 11:51 AM [facility] Alkaline Phosphatase 78 42 - 121 unit/L LAB CHEMISTRY METHOD 01/30/2025 11:51 AM [facility] Total Protein 6.3 6.0 - 8.0 g/dL LAB CHEMISTRY METHOD 01/30/2025 11:51 AM [facility] Albumin 3.6 3.2 - 5.0 g/dL LAB CHEMISTRY METHOD 01/30/2025 11:51 AM [facility] Total Bilirubin 0.4 0.0 - 1.4 mg/dL LAB CHEMISTRY METHOD 01/30/2025 11:51 AM [facility] Blood Venous blood specimen / Unknown Venipuncture / Unknown 01/30/2025 7:48 AM EST 01/30/2025 7:48 AM EST us Alyce CALDWELL LAB BLOOD ORDERABLES Final Resu lt [facility] [address] [place] [address], * MG Mammo Digital Screening w Burton bilat (12/30/2024 9:40 AM EDT) Anatomical Region Laterality Modality Breast Bilateral Mammography 01/02/2025 11:1 3 AM EDT Impressions 01/02/2025 11:28 AM EDT Benign. BI-RADS CATEGORY: 2 - BENIGN RECOMMENDATION: Screening bilateral mammogram is recommended in 1 year. Mammo Location: [facility], [address] [place] [address], [id number], . -------- FINAL REPORT -------- Dictated By: Mitzi Blunt Dictated Date: 01/02/2025 11:13 ET Assigned Physician: Mitzi Blunt Reviewed and Electronically Signed By: Mitzi Blunt Signed Date: 01/02/2025 11:28 ET Workstation ID: [id number] Transcribed By: Self Edit Transcribed Date: 01/02/2025 11:13 ET Narrative 01/02/2025 11:28 AM EDT CLINICAL: 54 years old, Female, routine annual exam. Status post bilateral reduction mammoplasty. COMPARISON: Mammograms 01/08/2021 and 01/14/2022. TECHNIQUE: Bilateral MLO and CC views were obtained digitally with 3-D mammogram (digital breast tomosynthesis). Computer-aided detection was utilized in evaluation of this exam (CAD). FINDINGS: There is no evidence of suspicious mass or architectural distortion. No worrisome calcifications are evident. There is stable bilateral scarring. There has been no significant change from prior exam(s). BREAST DENSITY: B - There are scattered areas of fibroglandular density. Procedure Note Mitzi Blunt MD - 01/02/2025 CLINICAL: 54 years old, Female, routine annual exam. Status postbilateral reduction mammoplasty. COMPARISON: Mammograms 01/08/2021 and 01/14/2022. TECHNIQUE: Bilateral MLO and CC views were obtained digitally with 3-Dmammogram (digital breast tomosynthesis). Computer-aided detection wasutilized in evaluation of this exam (CAD). FINDINGS: There is no evidence of suspicious mass or architectural distortion. Noworrisome calcifications are evident. There is stable bilateral scarring.There has been no significant change from prior exam(s). BREAST DENSITY: B - There are scattered areas of fibroglandular density. IMPRESSION: Benign. BI-RADS CATEGORY: 2 - BENIGN RECOMMENDATION: Screening bilateral mammogram is recommended in 1 year. Mammo Location: [facility], [address] [place] [address], [id number], . -------- FINAL REPORT -------- Dictated By: Mitzi Blunt Dictated Date: 01/02/2025 11:13 ET Assigned Physician: Mitzi Blunt Reviewed and Electronically Signed By: Mitzi Blunt Signed Date: 01/02/2025 11:28 ET Workstation ID: [id number] Transcribed By: Self Edit Transcribed Date: 01/02/2025 11:13 ET us Alyce CALDWELL IMG BI PROCEDURES Final Result * MR Brain wo Contrast (12/30/2024 9:30 AM EDT) Anatomical Region Laterality Modality Head and Neck Magnetic Resonan ce 12/30/2024 2:13 PM EDT Narrative 12/30/2024 2:18 PM EDT MRI of the head without intravenous contrast. History presyncopal episode. Examination was performed on 1.5 Hailey magnet without administration of intravenous contrast. Comparison with prior MRI examination from 09/09/2017. There is no evidence of midline shift, extra or intra-axial blood or fluid collections. There is no visible masses or mass effect in the brain and cerebellum. Ventricular system is symmetric and normal in size. Fourth ventricle and basal cisterns are midline and patent. There is no significant interval change in nonspecific areas of increased FLAIR signal adjacent to the frontal horns of the lateral ventricles. No new focal signal abnormalities were identified. There is no focal areas of restricted diffusion or abnormal magnetic susceptibility artifact. Paranasal sinuses and mastoid processes are unremarkable. CONCLUSIONS: Stable nonspecific white matter signal brightening L1 the frontal horns of the lateral ventricles. No new focal abnormalities in the brain and cerebellum.. No significant interval change since previous examination. -------- FINAL REPORT -------- Dictated By: Mami Peguero Dictated Date: 12/30/2024 14:13 ET Assigned Physician: Mami Peguero Reviewed and Electronically Signed By: Mami Peguero Signed Date: 12/30/2024 14:18 ET Workstation ID: [id number] Transcribed By: Self Edit Transcribed Date: 12/30/2024 14:13 ET Procedure Note Mami Peguero MD - 12/30/2024 MRI of the head without intravenous contrast. History presyncopal episode. Examination was performed on 1.5 Hailey magnet without administration ofintravenous contrast. Comparison with prior MRI examination from09/09/2017. There is no evidence of midline shift, extra or intra-axial blood or fluidcollections. There is no visible masses or mass effect in the brain andcerebellum. Ventricular system is symmetric and normal in size. Fourthventricle and basal cisterns are midline and patent. There is nosignificant interval change in nonspecific areas of increased FLAIR signaladjacent to the frontal horns of the lateral ventricles. No new focalsignal abnormalities were identified. There is no focal areas ofrestricted diffusion or abnormal magnetic susceptibility artifact. Paranasal sinuses and mastoid processes are unremarkable. CONCLUSIONS: Stable nonspecific white matter signal brightening L1 thefrontal horns of the lateral ventricles. No new focal abnormalities in thebrain and cerebellum.. No significant interval change since previousexamination. -------- FINAL REPORT -------- Dictated By: Mami Peguero Dictated Date: 12/30/2024 14:13 ET Assigned Physician: Mami Peguero Reviewed and Electronically Signed By: Mami Peguero Signed Date: 12/30/2024 14:18 ET Workstation ID: [id number] Transcribed By: Self Edit Transcribed Date: 12/30/2024 14:13 ET Alyce CALDWELL IMG MRI PROCEDURES Final Result * Vascular US duplex carotid bilateral (12/22/2024 12:56 PM EDT) Anatomical Region Laterality Modality Vascular, Abdomen Ultrasound 12/22/2024 4:24 PM EDT Impressions 12/22/2024 4:25 PM EDT Normal exam. This is considered 0-49% stenosis by ICA peak systolic velocity and ICA/CCA peak systolic velocity ratio criteria. -------- FINAL REPORT -------- Dictated By: Mitzi Blunt Dictated Date: 12/22/2024 16:24 ET Assigned Physician: Mitzi Blunt Reviewed and Electronically Signed By: Mitzi Blunt Signed Date: 12/22/2024 16:25 ET Workstation ID: [id number] Transcribed By: Self Edit Transcribed Date: 12/22/2024 16:24 ET Narrative 12/22/2024 4:25 PM EDT VAS US DUPLEX CAROTID BILATERAL BILATERAL CAROTID ARTERIAL ULTRASOUND Clinical History: [facility]/fain[place]. Comparison: None. Technique and Findings: Luna scale, color and pulsed Doppler imaging were utilized. The carotid arteries are clean. Both carotid systems demonstrate normal waveforms with brisk systolic upstrokes. Measured peak systolic velocities are as follows: Right ICA: 85 cm/s. Right ICA/CCA ratio: 1.0. Left ICA: 73 cm/s. Left ICA/CCA ratio: 0.9. Both vertebral arteries demonstrate normal antegrade flow. Procedure Note Mitzi Blunt MD - 12/22/2024 VAS US DUPLEX CAROTID BILATERAL BILATERAL CAROTID ARTERIAL ULTRASOUND Clinical History: [facility]/fainting. Comparison: None. Technique and Findings: Luna scale, color and pulsed Doppler imaging wereutilized. The carotid arteries are clean. Both carotid systems demonstrate normalwaveforms with brisk systolic upstrokes. Measured peak systolic velocities are as follows: Right ICA: 85 cm/s. Right ICA/CCA ratio: 1.0. Left ICA: 73 cm/s. Left ICA/CCA ratio: 0.9. Both vertebral arteries demonstrate normal antegrade flow. IMPRESSION: Normal exam. This is considered 0-49% stenosis by ICA peak systolicvelocity and ICA/CCA peak systolic velocity ratio criteria. -------- FINAL REPORT -------- Dictated By: Mitzi Blunt Dictated Date: 12/22/2024 16:24 ET Assigned Physician: Mitzi Blunt Reviewed and Electronically Signed By: Mitzi Blunt Signed Date: 12/22/2024 16:25 ET Workstation ID: [id number] Transcribed By: Self Edit Transcribed Date: 12/22/2024 16:24 ET us Alyce CALDWELL CV VASCULAR PROCEDURES Final Re sult * MR Lumbar Spine wo Contrast (12/13/2024 7:21 PM EDT) Anatomical Region Laterality Modality L-spine, Spine Magnetic Resonan ce 12/15/2024 12:5 9 PM EDT Impressions 12/19/2024 8:20 AM EDT Mild degenerative changes with minimally progressive disc disease. No evidence of nerve root impingement or high-grade spinal canal stenosis. -------- FINAL REPORT -------- Dictated By: Arti Mooney Dictated Date: 12/15/2024 12:59 ET Assigned Physician: Arti Mooney Reviewed and Electronically Signed By: Arti Mooney Signed Date: 12/19/2024 08:20 ET Workstation ID: [id number] Transcribed By: Self Edit Transcribed Date: 12/15/2024 13:50 ET Narrative 12/19/2024 8:20 AM EDT EXAM: Lumbar spine MRI HISTORY: Severe low back pain radiating into legs. COMPARISON: 12/03/2020 CORRELATION: Lumbar spine radiography 07/10/2022 TECHNIQUE: Exam performed on a 1.5 Hailey high-field MRI scanner. Multiplanar imaging performed without contrast. FINDINGS: Conus medullaris terminates at L1 which is within normal limits. No abnormal cord signal detected. Vertebral body heights are maintained. Multiple areas of T1 hyperintense signal in the vertebral bodies which could be due to focal fat and/or hemangiomas as seen previously. L1-L2: No significant disc bulging or evidence of a disc protrusion or extrusion. No significant neural foraminal narrowing or spinal canal stenosis. L2-L3: No significant disc bulging or evidence of a disc protrusion or extrusion. No significant neural foraminal narrowing or spinal canal analysis. L3-L4: Progressive disc desiccation and new very mild loss of disc height. Mild disc bulging eccentric to the left as before. Minimal left neural foraminal narrowing. No significant right neural foraminal narrowing or spinal canal stenosis. L4-L5: Progressive disc desiccation. Very mild loss of disc height. Minimal disc bulging slightly more prominent on the left. Annular tear again noted in the left posterolateral disc. Mild facet arthropathy. No significant neural foraminal narrowing or spinal canal stenosis. L5-S1: Stable tiny central disc protrusion. Mild bilateral facet arthropathy. No significant neural foraminal narrowing or spinal canal stenosis. Procedure Note Arti Mooney MD - 12/19/2024 EXAM: Lumbar spine MRI HISTORY: Severe low back pain radiating into legs. COMPARISON: 12/03/2020 CORRELATION: Lumbar spine radiography 07/10/2022 TECHNIQUE: Exam performed on a 1.5 Hailey high-field MRI scanner.Multiplanar imaging performed without contrast. FINDINGS: Conus medullaris terminates at L1 which is within normal limits. Noabnormal cord signal detected. Vertebral body heights are maintained. Multiple areas of T1 hyperintensesignal in the vertebral bodies which could be due to focal fat and/orhemangiomas as seen previously. L1-L2: No significant disc bulging or evidence of a disc protrusion orextrusion. No significant neural foraminal narrowing or spinal canalstenosis. L2-L3: No significant disc bulging or evidence of a disc protrusion orextrusion. No significant neural foraminal narrowing or spinal canalanalysis. L3-L4: Progressive disc desiccation and new very mild loss of disc height.Mild disc bulging eccentric to the left as before. Minimal left neuralforaminal narrowing. No significant right neural foraminal narrowing orspinal canal stenosis. L4-L5: Progressive disc desiccation. Very mild loss of disc height.Minimal disc bulging slightly more prominent on the left. Annular tearagain noted in the left posterolateral disc. Mild facet arthropathy. Nosignificant neural foraminal narrowing or spinal canal stenosis. L5-S1: Stable tiny central disc protrusion. Mild bilateral facetarthropathy. No significant neural foraminal narrowing or spinal canalstenosis. IMPRESSION: Mild degenerative changes with minimally progressive disc disease. Noevidence of nerve root impingement or high-grade spinal canal stenosis. -------- FINAL REPORT -------- Dictated By: Arti Mooney Dictated Date: 12/15/2024 12:59 ET Assigned Physician: Arti Mooney Reviewed and Electronically Signed By: Arti Mooney Signed Date: 12/19/2024 08:20 ET Workstation ID: [id number] Transcribed By: Self Edit Transcribed Date: 12/15/2024 13:50 ET Reji Rosado DO IMG MRI PROCEDURES Final Result * XR Elbow 3+ Views Left (12/09/2024 10:49 AM EDT) Anatomical Region Laterality Modality Upper Extremities, Elbow Left Radiogr aphic Imaging 12/09/2024 4:12 PM EDT Impressions 12/09/2024 4:12 PM EDT No fracture or dislocation of the left elbow. -------- FINAL REPORT -------- Dictated By: Tory Martínez Dictated Date: 12/09/2024 16:12 ET Assigned Physician: Tory Martínez Reviewed and Electronically Signed By: Tory Martínez Signed Date: 12/09/2024 16:12 ET Workstation ID: [id number] Transcribed By: Self Edit Transcribed Date: 12/09/2024 16:12 ET Narrative 12/09/2024 4:12 PM EDT HISTORY: pain TECHNIQUE: 3 viewsof the left elbow COMPARISON: None FINDINGS: The elbow joint is well maintained. No fracture or dislocation is seen. There is no joint effusion present. Soft tissues are unremarkable. Procedure Note Tory Martínez MD - 12/09/2024 HISTORY: pain TECHNIQUE: 3 viewsof the left elbow COMPARISON: None FINDINGS: The elbow joint is well maintained. No fracture or dislocation is seen.There is no joint effusion present. Soft tissues are unremarkable. IMPRESSION: No fracture or dislocation of the left elbow. -------- FINAL REPORT -------- Dictated By: Tory Martínez Dictated Date: 12/09/2024 16:12 ET Assigned Physician: Tory Martínez Reviewed and Electronically Signed By: Tory Martínez Signed Date: 12/09/2024 16:12 ET Workstation ID: [id number] Transcribed By: Self Edit Transcribed Date: 12/09/2024 16:12 ET us Reji Ashlee DO IMG XR PROCEDURES Final Result * Lipid panel with reflex to direct LDL (11/29/2024 8:13 AM EDT) Cholesterol 170 0 - 200 mg/dL LAB CHEMISTRY METHOD 11/29/2024 10:35 AM EDT [facility] Triglycerides 132 0 - 150 mg/dL LAB CHEMISTRY METHOD 11/29/2024 10:35 AM EDT [facility] HDL 49 >=40 mg/dL LAB CHEMISTRY METHOD 11/29/2024 10:35 AM EDT [facility] LDL Calculated 95 0 - 100 mg/dL LAB CHEMISTRY METHOD 11/29/2024 10:35 AM EDT [facility] Comment:Estimated LDL Calcul ated using equation: Total cholesterol - HDL cholesterol - (Triglycerides/5) VLDL Cholesterol Lio 26.4 mg/dL LAB CHEMISTRY METHOD 11/29/2024 10:35 AM EDT [facility] Non HDL Chol. (LDL+VLDL) 121 <145 mg/dL LAB CHEMISTRY METHOD 11/29/2024 10:35 AM EDT [facility] Chol/HDL Ratio 3.5 0.0 - 4.4 LAB CHEMISTRY METHOD 11/29/2024 10:35 AM EDT [facility] Blood Venous blood specimen / Unknown Venipuncture / Unknown 11/29/2024 8:13 AM EDT 11/29/2024 8:13 AM EDT us Aicha Taylor MD LAB BLOOD ORDERABL ES Final Result [facility] [address] [place] [address], [place] [phone] from Last 3 Months Insurance [facility]) MEDICAID - [place] Advance Directives Documents on File Type Date Recorded Patient Preventive Medicine Officer Expl anation Power of Church Organist 05/03/2024 11:46 AM Blane Patino [facility] [employer] PROXY * Full Code - Confirmed [...] Agents on File Name Relationship Healthcare Agent [facility] Communication Al Sukumar [facility] Agent Care Teams Lead Electrical Engineer Relationship Specialty Start Date End Date Aicha Taylor MD [address] [place] [phone] PCP - General Internal Medicine 03/14/24
--- OUTSIDE RECORDS SUMMARY | 2025-02-08 14:15 | XMS_ITS | Encounter Summary ---
Author Organization Address [address] [place] [address] Care Team Providers Care Dog Beautician Name Role Phone Aicha Taylor MD Primary Care Prov ider Reason for Visit * Reason Onset Date Comments Medication Problem 02/01/2025 Encounter Details Date Type Department Care Team ([facility] st Contact Info) Description 02/01/2025 Telephone Adult Medicine [address] [phone] Aicha Taylor MD [address] [place] [address] Social History Tobacco Use Types Packs/Day Years [...] care for your loved ones. For example, child welfare assistant or elderly care for an older adult? [...] Orientation Straight 04/28/2024 9: 33 AM EST documented as of this encounter Progress Notes * Karuna Wagner - 02/06/2025 11:17 AM EST Medication Problem: What is the name of the medication patient is having a problem with?: ferrous sulfate, dried (Slow Release Iron) 160 mg (50 mg iron) tablet extended release What is the problem?: medication label says 160 mg, medication should say 140 mg in order to prescribe medication to patient. Who is calling about the problem? : A pharmacist: Pharmacy: [address] [place] [address] Pharmacist Name: [facility] Is this a NEW medication?: no How long has the patient been taking this medication? N?A Who prescribed this medication for the patient? PCP Who is patients PCP?: Aicha Schafer MD Payor: [employer] [place] [employer]) / Plan: [employer] [place] / Product Type: *No Product type* / * Marlo Valdivia - 02/01/2025 4:53 PM EST Medication Problem: What is the name of the medication patient is having a problem with?: ferrous sulfate, dried (Slow Release Iron) 160 mg (50 mg iron) tablet extended release What is the problem?: Medication does not come in 160 mg Only 140 mg looking new script to be sent over Who is calling about the problem? : A pharmacist: Pharmacy: [facility] Pharmacist Name: [facility] Phone # [phone] Is this a NEW medication?: yes How long has the patient been taking this medication? 01/31/25 Who prescribed this medication for the patient? Dr. Boone Who is patients PCP?: Aicha Schafer MD Payor: [employer]) / Plan: [employer] [place] / Product Type: *No Product type* / documented in this encounter Plan of Treatment Upcoming Encounters Date Type Department Care Team (Late st Contact Info) Description 04/28/2025 7:00 AM EST Ancillary Procedure [facility] [address] [place] [address] 06/02/2025 7:30 AM EDT Office Visit Adult Medicine [address], [place] [phone] Aicha Taylor MD [address] [place], [place] documented as of this encounter Visit Diagnoses Not on filedocumented in this encounter Additional Health Concerns Assessment Noted Time PHQ-9 Depression Total Score: 10 025 1:07 PM EDT documented as of this encounter Care Teams Dog Beautician Relationship Specialty Start Date End Date Aicha Taylor MD [address] [place] [address] PCP - General Internal Medicine 03/14/24 documented as of this encounter
--- OUTSIDE RECORDS SUMMARY | 2025-02-08 14:15 | XMS_ITS ---
Author Name [facility] Organization Unknown Encounters Encounter Type Encounter Reason Primary Diagnosis Location Date Ambulatory [facility] 02/09/2023
--- OUTSIDE RECORDS SUMMARY | 2025-02-08 14:15 | XMS_ITS | Encounter Summary ---
Author Organization [facility] Address [address] [place] [address] Care Team Providers Care Soa Engineer Name Role Phone Aicha Taylor MD Primary Care Prov ider Encounter Details Date Type Department Care Team (Late st Contact Info) Description 12/26/2024 Results Follow-Up Adult Medicine [facility] [address] [place], [place] [phone] Alyce Nolen PA [address] [place], [place] Social History Tobacco Use Types Packs/Day Years [...] for your loved ones. For example, child care center assistant director or elderly care for an older adult? [...] AM EST documented as of this encounter Plan of Treatment Upcoming Encounters Date Type Department Care Team (Late st Contact Info) Description 04/28/2025 7:00 AM EST Ancillary Procedure [facility] [address] [place] [address] 06/02/2025 7:30 AM EDT Office Visit Adult Medicine [address] [phone] Aicha Taylor MD [address] [place] [address] documented as of this encounter Visit Diagnoses Diagnosis Abnormal brain MRI- Primary Nonspecific (abnormal) findings on radiological and other examination of skull and head documented in this encounter Additional Health Concerns Assessment Noted Time PHQ-9 Depression Total Score: 10 025 1:07 PM EDT documented as of this encounter Care Teams Soa Engineer Relationship Specialty Start Date End Date Aicha Taylor MD [address] [place] [address] PCP - General Internal Medicine 03/14/24 documented as of this encounter
== END 2025-02-08 11:23 | disposition home or self-care (01) ==
LOC: HO.NEURO 11:22
PROVIDERS: Visit Provider Orthopaedic Surgery
DX: G56.22 Lesion of ulnar nerve, left upper limb (principal); M25.522 Pain in left elbow; R20.0 Anesthesia of skin
CPT/HCPCS: 95886; 95909

== ENCOUNTER → 2025-02-08 11:27 | Outpatient (BNV) | payer BC, MEDICAID, SELFPAY | PROVIDERS: Visit Provider Physical Medicine & Rehabilitation | DX: M25.522 Pain in left elbow (principal) | CPT/HCPCS: 95886; 95909 ==